=== PATIENT | female | born 1935 ===

== ENCOUNTER 2017-02-20 10:53 | Day surgery (SDC) | payer MEDICARE ==
[2017-01-29 07:57] VITALS: BMI 20.2
[2017-02-20] MEDS ORDERED: Iohexol 240 (50 ml) ONE (12:16)
[2017-02-20] MEDS ORDERED: cefTRIAXone IV 1 gm in Dextros 50 ML IVPB ONE (12:16)
[2017-02-20] MEDS ORDERED: Lactated Ringer's 1,000 ML IV ONE (13:20)
[2017-02-20] MEDS ORDERED: Propofol 10 mg/ml Inj (20 ML) ONE (13:34)
[2017-02-20] MEDS ORDERED: HYDROmorphone 0.5 mg/0.5 ml ISec IVP PRN (14:25)
--- NOTE | 2017-02-20 15:35 | PCM.SURG1 ---
Surgeon's Initial Post Op Note - Surgeon's Notes Surgeon: christian kang Supervisor [employer]ing [employer]: none Type of Anesthesia: General LMA Pre-Operative Diagnosis: hydronephrosis. uti Operative Findings: same. cystocele Post-Operative Diagnosis: same Operation Performed: cystoscopy, bilat rtg pyelogram. bilat stent insertion. cystogram. EUA Specimen/Specimens Removed: urine Estimated Blood Loss: EBL {In ML}: 0 Blood Products Given: N/A Drains Used: No Drains Date of Surgery/Procedure: 02/20/17 Time of Surgery/Procedure: 14:40
[2017-02-20] MEDS ORDERED: Lactated Ringer's 500 ML IV ONE (15:45)
[2017-02-20 16:31] VITALS: RESP 16
[2017-02-20 16:38] VITALS: BP 141/57; PULSE 93; TEMP 98.4; O2SAT 99
--- NOTE | 2017-02-21 09:13 | RAD ---
Abdomen single frontal view History: Hydronephrosis. Comparison: 11/04/2016 Findings: Moderate fecal retention in the colon. Few mildly distended loops of small bowel within the right sterling abdomen. Severe degenerative changes in the lumbar spine with paravertebral osteophytosis, endplate sclerosis, and mild loss of height of the vertebral bodies. Mild degenerative changes of the bilateral hips. Vascular calcifications noted. Calcified phleboliths noted within the pelvis. No evidence of gross radiopaque calculi projecting over the renal fossa. Impression: Moderate fecal retention in the colon. No gross radiopaque calculi project over the renal fossa. Radiopaque calcifications project over the lower pelvis, possibly calcified phleboliths. Severe degenerative changes in the spine.
--- NOTE | 2017-02-22 18:39 | OP ---
PREOPERATIVE DIAGNOSES: Urinary tract infection. Incontinence. POSTOPERATIVE DIAGNOSES: Urinary tract infection. Incontinence. Hydronephrosis. Cystitis. Pelvic prolapse. Cystocele. PROCEDURE: Cystoscopy. Bilateral retrograde pyelogram. Bilateral ureteral stent insertion. Cystogram. Exam under anesthesia. OPERATING SURGEON: Eun Aburto MD PROCEDURE: As follows. The patient was placed in lithotomy position. Genitalia prepped and sterilely. Anesthesia was applied by the anesthesiologist. A 22-Marshallese cystoscope sheath was introduced with obturator. Urethra and bladder were inspected 30 degrees and 70 degrees lenses. FINDINGS: The urethral caliber was noted to be normal. There was evidence of cystocele. The bladder was noted to be markedly inflamed. The urine within the bladder was cloudy. Urine was sent for bacteriologic examination. There was marked bladder trabeculation. There was no tumor identified. There was diffuse inflammatory mucosal changes. There was no stone within the bladder. There was bladder trabeculation as well. The ureteral orifices were initially not evident due to the inflammation in the bladder as well as the decreased visibility due to cloudy urine, as well as due to trabeculation. The right ureteral orifice was ultimately identified. The ureteral orifice was catheterized with a guidewire with the use of an open-ended catheter. The ureter initially took a caudad course from the ureteral orifice. The guidewire and open-end catheter were able to straighten this distal ureteral course. There was noted to be moderate hydroureteronephrosis down to the level of the bladder. The guidewire and catheter were able to be inserted up to level of the kidney. There was secondary kinking of the upper ureter which was also strained by the guidewire and catheter. Iodinated contrast dye was instilled into the kidney and demonstrated moderate hydroureteronephrosis. The guidewire was reinserted. A 6-Marshallese multilength stent was inserted over the guidewire. Proper stent position was confirmed with fluoroscopy endoscopy. Similar retrograde pyelogram was performed on the left side. The left ureteral orifice was able to be identified after further searching and by expecting symmetry with the right ureteral orifice. Similar findings of the left distal ureteral obstruction and caudad course of the left distal ureter from the orifice were noted. Moderate hydronephrosis with upper ureter were noted on the left as well. Similar catheterization with guidewire and catheter followed by retrograde pyelogram were performed on the left. The guidewire was reinserted. A left ureteral stent was inserted as well. Proper stent position was confirmed with fluoroscopy and endoscopy. The bladder was reinspected 70-degree lens to confirm the above findings. There was no bladder tumor identified. There was no bladder stone identified. Iodinated contrast dye was instilled via the cystoscope along with saline. Cystogram was performed. There was noted to be moderate pelvic descensus below the pubic bone. The bladder was then drained. Cystoscope sheath removed. Exam under anesthesia was performed. There was noted to be cystocele. There was noted to be rectocele. There was no abnormal pelvic mass fixation or induration. The patient tolerated the procedure without complication. Eun Aburto MD cc: MD Eun Pérez MD
--- NOTE | 2017-02-24 11:27 | RAD ---
PROCEDURE: HISTORY: Stent insertion-hydronephrosis. Fluoroscopy provided COMPARISON: None TECHNIQUE: Total fluoroscopic time utilized during the procedure: 59.9 seconds. Total dose 0.32005 mGy cm squared FINDINGS: Submitted images from the current procedure: 5 Please refer to the physician's notes performing the procedure. Bilateral hydronephrosis left greater than right. Bifid left collecting system. Bilateral hydroureters with hooking distally - of the system portions opacified no gross filling defects seen. IMPRESSION: Less than 1 hour fluoroscopic time utilized during performance of the procedure
== END 2017-02-20 16:41 | disposition home or self-care (01) ==
LOC: C.SDS 10:53
PROVIDERS: ATTEND Urology
DX: N39.0 Urinary tract infection, site not specified (principal); N13.30 Unspecified hydronephrosis; R32 Unspecified urinary incontinence; N30.90 Cystitis, unspecified without hematuria; N81.10 Cystocele, unspecified
CPT/HCPCS: 52332; 74000; 82948; 87086; 87181; C1758; C1769; C2617; J0696; J1170; J7120

== ENCOUNTER 2017-03-21 10:45 | Inpatient (IN) | payer MEDICARE ==
[2017-03-21 10:45] VITALS: BMI 20.2
--- NOTE | 2017-03-21 12:12 | C.PDOC ---
History Of Present Illness 81 y/o F c PMHx HTN, DM, arthritis (patient has been taking tramadol, was on gabapentin previously) p/w lower leg pain bilaterally x 3 days. Pain is like a pulsing, from knee to toes, plantar feet and up calf. Daughter states patient has never had pain like this before. Reports a fall weeks ago but patient had no leg pains after the fall. Denies swelling, erythema, numbness, or weakness. Patient also notes suprapubic pain, which is similar to multiple previous UTIs for which patient has always taken nitrofurantoin. Time Seen by Provider: 03/21/17 11:53 Chief Complaint (Nursing): Lower Extremity Problem/Injury Past Medical History Vital Signs: Last Vital Signs Temp 99.4 F 03/21/17 16:25 Pulse 112 H 03/21/17 16:25 Resp 18 03/21/17 16:25 BP 106/47 L 03/21/17 16:25 Pulse Ox 99 03/21/17 17:50 - Medical History PMH: HTN, Peripheral Edema Surgical History: Endoscopy Family History: States: No Known Family Hx - Social History Hx Alcohol Use: No Hx Substance Use: No - Immunization History Hx Tetanus Toxoid Vaccination: No Hx Influenza Vaccination: No Hx Pneumococcal Vaccination: No Review Of Systems Except As Marked, All Systems Reviewed And Found Negative. Constitutional: Negative for: Fever Respiratory: Negative for: Shortness of Breath Physical Exam - Physical Exam Additional Physical Exam Comments: Constitutional: No acute distress. Head: Normocephalic. Atraumatic. Eyes: PERRL. ENT: Moist mucous membranes. Neck: Supple. Cardiovascular: Tachycardic. Chest: No tenderness. Respiratory: Clear to auscultation bilaterally. GI: Soft. Nontender. Nondistended. Back: No CVA tenderness. Musculoskeletal: Lower legs without swelling or erythema. DP pulses 2+. FROM toes, ankles, knees. Skin: No rash. Neurologic: Alert, no focal deficit. ED Course And Treatment - Laboratory Results Result Diagrams: 03/21/17 12:25 03/21/17 12:25 O2 Sat by Pulse Oximetry: 99 (RA) Pulse Ox Interpretation: Normal Medical Decision Making Medical Decision Making: Will check UA and treat UTI with previously effective Macrobid. Leg pain differential includes DVT, rhabdo, muscle cramps, fracture, neuropathy. Joints with FROM, afebrile and no erythema, not suspicious for cellulitis or septic joint. UA obviously with UTI. Discussed case with Liliam Aburto, who previously had placed patient on different antibiotic due to macrobid resistance. He recommends another trial of macrobid at this time and will see patient this week , requests KUB. Doppler negative for DVT b/l. On reassessment, patient's leg pain is better but is having shaking chills, which daughter at bedside attributes to cold US gel. Rechecked temperature, 101.9 with UTI, performed sepsis work up. Lactate 3.4, CODE SEPSIS activated. IVF administered, Cefepime. EKG NSR 124 bpm , no ST/T wave changes. CXR negative for acute disease. Dr. Valdez accepts patient to hospitalist service. Informed Dr. Aburto of change in plan, he will consult. Disposition - Disposition Disposition: HOSPITALIZED Disposition Time: 14:24 Condition: GUARDED - POA Core Measure Indicators: Code Sepsis - Clinical Impression Clinical Impression: UTI (urinary tract infection), Sepsis - Scribe Statement The provider has reviewed the documentation as recorded by the Scribe (Judith Zayas) Provider Attestation: All medical record entries made by the Scribe were at my direction and personally dictated by me. I have reviewed the chart and agree that the record accurately reflects my personal performance of the history, physical exam, medical decision making, and the department course for this patient. I have also personally directed, reviewed, and agree with the discharge instructions and disposition.
[2017-03-21] MEDS ORDERED: Morphine 4 MG/ML VIAL ONE (12:18)
[2017-03-21 12:29] LABS: BASO % 0.5 % (0.0-2.0); EOS % 0.2 % (0.0-4.0); HEMATOCRIT 31.5 % (34.0-47.0); LYMPH # 1.4 K/uL (1.0-4.3); LYMPH % 25.7 % (20.0-40.0); MEAN CELL VOLUME 81.2 fL (81.0-99.0); MEAN CORPUSCULAR HEMOGLOBIN 26.9 pg (27.0-31.0); MEAN CORPUSCULAR HGB CONC 33.1 g/dL (33.0-37.0); MEAN PLATELET VOLUME 7.6 fL (7.2-11.7); MONO # 0.6 K/uL (0.0-0.8); MONO % 11.4 % (0.0-10.0); RED CELL DISTRIBUTION WIDTH 16.1 % (11.5-14.5); WHITE BLOOD COUNT 5.6 K/uL (4.8-10.8)
[2017-03-21 12:42] LABS: ALKALINE PHOSPHATASE 94 U/L (38-126); ALT/SGPT 43 U/L (9-52); AST/SGOT 25 U/L (14-36); BILIRUBIN,TOTAL 0.4 mg/dL (0.2-1.3); BLOOD UREA NITROGEN 25 mg/dL (7-17); CALCIUM 8.8 mg/dl (8.6-10.4); CARBON DIOXIDE 25 mmol/L (22-30); CHLORIDE 103 mmol/L (98-107); GFR AFRICAN-AMERICAN > 60; GLUCOSE,RANDOM 138 mg/dL (65-105); POTASSIUM 4.6 mmol/L (3.6-5.2); SODIUM 135 mmol/L (132-148); TOTAL PROTEIN 8.6 g/dL (6.3-8.3)
[2017-03-21 12:46] LABS: ALB/GLOB RATIO 0.7 (1.0-2.1)
[2017-03-21 13:07] LABS: RBC URINE 261 /hpf (0-3); URINE BACTERIA MOD (<OCC); URINE BILIRUBIN NEGATIVE (NEGATIVE); URINE BLOOD 3+ (NEGATIVE); URINE COLOR Amber (YELLOW); URINE GLUCOSE (UA) NORMAL (Normal); URINE KETONE NEGATIVE (NEGATIVE); URINE LEUKOCYTE ESTERASE 3+ Leu/uL (Negative); URINE PROTEIN 2+ mg/dL (NEGATIVE); URINE UROBILINOGEN NORMAL mg/dL (0.2-1.0); WBC CLUMPS MANY /hpf; WBC URINE 4993 /hpf (0-5)
--- NOTE | 2017-03-21 13:10 | RAD ---
Bilateral tibia and fibula four views History: Lower leg pain. Comparison: None available. Findings: Left tibia and fibula: Limited evaluation given suboptimal patient positioning on the frontal view, particularly of the fibula. Severe medial compartment joint space narrowing of the femorotibial joint space with subchondral sclerosis and osteophytosis. Vascular calcifications. Narrowing of the tibiotalar joint space. Moderate patellofemoral compartment joint space narrowing with subchondral sclerosis. Right tibia and fibula: Severe narrowing of the medial compartment of the femorotibial joint space with subchondral sclerosis and osteophytosis. Moderate patellofemoral compartment joint space narrowing. Vascular calcifications. Impression: Severe degenerative changes. If pain persists, consider MRI. Suboptimal patient positioning of the left tibia and fibula.
[2017-03-21] MEDS ORDERED: Sodium Chloride 0.9% 1,000 ML IV STA ×2 (14:41→15:40)
[2017-03-21] MEDS ORDERED: Cefepime 2 GM in Sodium Chloride 0.9% 50 ML IVPB ONE (14:42)
--- NOTE | 2017-03-21 14:42 | RAD ---
Abdomen single frontal view History: Ureteral stents. Comparison: 02/20/2017 Findings: Bilateral nephroureteral stents in place. Punctate radiopaque density/calculus adjacent to the distal right ureter. Alternatively, this may represent a calcified phlebolith. Mild gaseous distention of some small bowel loops in the upper abdomen. Prominent degenerative changes in the spine. Impression: Bilateral nephroureteral stents in place. Punctate radiopaque density/calculus adjacent to the distal right ureter. Alternatively, this may represent a calcified phlebolith.
[2017-03-21 15:05] LABS: VENOUS BLOOD GAS BASE EXCESS -11.4 mmol/L (0.0-2.0); VENOUS BLOOD GAS PCO2 31 mmHg (40-60); VENOUS BLOOD PH 7.27 (7.32-7.43)
[2017-03-21] MEDS ORDERED: Cefepime 2 GM in Dextrose 5% In Water 100 ML IVPB ONE (15:15)
[2017-03-21] MEDS ORDERED: Cefepime 2 GM in Sodium Chloride 0.9% 100 ML IVPB ONE (15:15)
--- NOTE | 2017-03-21 15:35 | RAD ---
Chest x-ray single frontal view History: Fever. Comparison: 11/04/2016 Findings: Again identified is a small nodule seen projecting over the left upper lung zone. This is not significantly changed since the prior study. Correlation with chest CT may be helpful clinically indicated. No focal infiltrate or effusion. Tortuous ectatic aorta. Degenerative changes in the spine and shoulders. Impression: No focal infiltrate or effusion. Stable nodule projecting over the left upper lung zone. Clinical correlation.
--- NOTE | 2017-03-21 15:55 | CP.PCM.HP ---
History of Present Illness - History of Present Illness History of Present Illness: CC: leg pain/bilateral H&P Patient has been having leg pain for past five days. Patient does not walk from bed to bathroom this week because of the pain. Patient's daughter states that patient usually walks from bathroom to bed, but not more than that. Patient's daughter states patient has been having a urine infection since September and has been constantly on antibiotics. Patient's daughter states for a week now, the patient has had pain on bottom of left foot that travels up to her calves. Upon demonstration of the pain with light touch, the daughter which produced a painful response from the patient. Patient's daughter states that there is increased frequency and burning with urination. Patient noted for a week, along with the leg pain, patient does not get up because of the pain and urinates more in the bed than before. Patient used to wake up multiple times in the night because of the urge to urinate. Patient sees Dr. Aburto who suggested seeing Dr. Huong Valdez (OBGYN) for pessary insertion. Patient has a PMH of DM, HTN, and cystocele. Patient states she wipes from "back to front." Proper method to wipe after urination is from front to back. Patient is now aware of another way to help decrease risk of UTI. code sepsis was called in the ED prior to admission interview: Patient had tachycardia, and lactate 3.4 PMH: DM, HTN, cystocele, osteoarthritis Surgeries: bilateral ureteral stent placement 02/20/17 Allergies: none PMD: Dr. Paredes Urologist: Dr Renita Aburto OBGYN: Dr. Kiara Valdez Code Status: full code Present on Admission - Present on Admission Any Indicators Present on Admission: No History of DVT/PE: No History of Uncontrolled Diabetes: No Urinary Catheter: No Past Patient History - Past Medical History & Family History Past Medical History?: Yes - Past Social History Smoking Status: Never Smoked - CARDIAC Hx Hypertension: Yes Hx Peripheral Edema: Yes - PULMONARY Hx Respiratory Disorders: Yes (ABN CHEST X RAY) - NEUROLOGICAL Hx Neurological Disorder: No - HEENT Hx HEENT Problems: Yes Hx Cataracts: Yes (BILAT IOL) - RENAL Other/Comment: HYDRONEPHROSIS - ENDOCRINE/METABOLIC Hx Endocrine Disorders: Yes Hx Diabetes Mellitus Type 2: Yes - HEMATOLOGICAL/ONCOLOGICAL Hx Blood Disorders: No - INTEGUMENTARY Hx Dermatological Problems: No - MUSCULOSKELETAL/RHEUMATOLOGICAL Hx Musculoskeletal Disorders: Yes Hx Osteoarthritis: Yes - GASTROINTESTINAL Hx Gastrointestinal Disorders: Yes (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) - GENITOURINARY/GYNECOLOGICAL Hx Genitourinary Disorders: Yes Hx Urinary Tract Infection: Yes - PSYCHIATRIC Hx Substance Use: No - SURGICAL HISTORY Hx Surgeries: Yes Hx Breast Biopsy: Yes (LEFT) Hx Cataract Extraction: Yes (BILAT IOL) Other/Comment: Kidney stent - ANESTHESIA Hx Anesthesia: Yes Hx Anesthesia Reactions: No Hx Malignant Hyperthermia: No Meds Allergies/Adverse Reactions: Allergies Allergy/AdvReac Type Severity Reaction Status Date / Time No Known Allergies Allergy Verified 03/21/17 10:50 Physical Exam - Head Exam Head Exam: ATRAUMATIC, NORMAL INSPECTION, NORMOCEPHALIC - Eye Exam Eye Exam: EOMI, Normal appearance. absent: Periorbital tenderness Additional comments: arcus senilis bilaterally - ENT Exam ENT Exam: Mucous Membranes Dry, Normal External Ear Exam - Neck Exam Neck exam: Positive for: Full Rom. Negative for: Tenderness - Respiratory Exam Respiratory Exam: NORMAL BREATHING PATTERN. absent: Accessory Muscle Use, Chest Wall Tenderness, Decreased Breath Sounds, Wheezes, Respiratory Distress - Cardiovascular Exam Cardiovascular Exam: Tachycardia, REGULAR RHYTHM, +S1, +S2 - GI/Abdominal Exam GI & Abdominal Exam: Soft. absent: Distended, Firm, Tenderness - Exam External exam: Erythema Additional comments: pain on palpation of mons pubis, labia majora as well. cystocele apparent upon view of the genital region. did not do full pelvic exam - Extremities Exam Extremities exam: Positive for: full ROM. Negative for: pedal edema Additional comments: patient expressed feeling pain on palpation of left posterior calf capillary refill less than 2 seconds. - Neurological Exam Neurological exam: Alert - Psychiatric Exam Psychiatric exam: Normal Affect, Normal Mood - Skin Skin Exam: Dry, Intact, Normal Color, Warm Results - Vital Signs Recent Vital Signs: Last Vital Signs Temp 101.9 F H 03/21/17 14:38 Pulse 137 H 03/21/17 15:17 Resp 24 03/21/17 15:17 BP 138/76 03/21/17 15:17 Pulse Ox 92 L 03/21/17 15:17 - Labs Result Diagrams: 03/21/17 12:25 03/21/17 12:25 Labs: Laboratory Results - last 24 hr 03/21/17 03/21/17 03/21/17 12:25 12:25 12:39 WBC 5.6 D RBC 3.88 Hgb 10.4 L Hct 31.5 L MCV 81.2 D MCH 26.9 L MCHC 33.1 RDW 16.1 H Plt Count 422 H MPV 7.6 Neut % (Auto) 62.2 Lymph % (Auto) 25.7 [place] % (Auto) 11.4 H Eos % (Auto) 0.2 Baso % (Auto) 0.5 Neut # 3.5 Lymph # 1.4 [place] # 0.6 Eos # 0.0 Baso # 0.0 pO2 VBG pH VBG pCO2 VBG HCO3 VBG Total CO2 VBG O2 Sat (Calc) VBG Base Excess VBG Potassium Glucose Lactate Sodium 135 Potassium 4.6 Chloride 103 Carbon Dioxide 25 Anion Gap 12 BUN 25 H Creatinine 1.0 Est GFR ( Amer) > 60 Est GFR (Non-Af Amer) 53 Random Glucose 138 H Calcium 8.8 Total Bilirubin 0.4 AST 25 ALT 43 Alkaline Phosphatase 94 Total Creatine Kinase 22 L Total Protein 8.6 H Albumin 3.6 Globulin 5.0 H Albumin/Globulin Ratio 0.7 L Venous Blood Potassium Urine Color Irena Urine Clarity Turbid Urine pH 6.0 Ur Specific [place] 1.011 Urine Protein 2+ H Urine Glucose (UA) Normal Urine Ketones Negative Urine Blood 3+ H Urine Nitrate Positive H Urine Bilirubin Negative Urine Urobilinogen Normal Ur Leukocyte Esterase 3+ H Urine WBC (Auto) 4993 H Urine RBC (Auto) 261 H Urine WBC Clumps (Auto) Many H Urine Bacteria Mod H 03/21/17 14:48 WBC RBC Hgb Hct MCV MCH MCHC RDW Plt Count MPV Neut % (Auto) Lymph % (Auto) [place] % (Auto) Eos % (Auto) Baso % (Auto) Neut # Lymph # [place] # Eos # Baso # pO2 21 L VBG pH 7.27 L VBG pCO2 31 L VBG HCO3 14.1 VBG Total CO2 15.2 L VBG O2 Sat (Calc) 36.4 L VBG Base Excess -11.4 L VBG Potassium 4.4 Glucose 132 H Lactate 3.4 H Sodium 143.0 Potassium Chloride 113.0 H Carbon Dioxide Anion Gap BUN Creatinine Est GFR ( Amer) Est GFR (Non-Af Amer) Random Glucose Calcium Total Bilirubin AST ALT Alkaline Phosphatase Total Creatine Kinase Total Protein Albumin Globulin Albumin/Globulin Ratio Venous Blood Potassium 4.4 Urine Color Urine Clarity Urine pH Ur Specific [place] Urine Protein Urine Glucose (UA) Urine Ketones Urine Blood Urine Nitrate Urine Bilirubin Urine Urobilinogen Ur Leukocyte Esterase Urine WBC (Auto) Urine RBC (Auto) Urine WBC Clumps (Auto) Urine Bacteria Assessment & Plan - Assessment and Plan (Free Text) Assessment: 1 code sepsis - called in ER, likely secondary to UTI, secondary to bilateral ureteral stents v cystocele f/u blood cx x 2 f/u urine cx x 2 ID Consult: Dr. Valdez Urology Consult: Dr. Maty Aburto 03/21 14:48 Lactate 3.4 03/21 repeat at 17:48pm STAT ABG ordered to follow up EKG stat for tachycardia likely secondary to fever, treating with tylenol Vitals Q4H Maxipime 1gm IVQ12H to start 03/22/17 in AM NS 75cc/hr Tylenol 650mg POQ6H for 24 hours starting 6am 03/22/17 f/u Vitals, AM CBC, CMP 2 hx of b/l stent placement 02/20/1703/21 abdominal flat plate 1 view: bilateral nephroureteral stents. punctate radiopaque density/calculus adjacent to distal right ureter Urology Consult: Dr. Maty Aburto (see Assessment and plan #1) 2 UTI 03/21 antibiotics in ER Maxipime 2gm IV once 03/21 antibiotics on the floor: Maxipime 1gm IVQ12H start 03/22/17 (see Assessment and plan #1) (see Assessment and plan #1) 3 Tachycardia (see Assessment and plan #1) 4 Lower extremity leg pain b/l Tibial/fibula XRAY: severe degenerative changes duplex lower extremity arteries bilaterally were negative for DVT f/u 03/22 bilateral arterial dopplers of legs Gabapentin 100mg QHS 5 Anemia likely secondary to chronic disease hemoglobin/hematocrit stable compared to 01/20 f/u AM CBC with differential 6 Hx T2DM Janumet, hold due to UTI, not on formulary Low dose ISS accuchek q6h Hypoglycemic Protocol Vegetarian, Low Sodium, heart healthy, Carbohydrate consistent diet f/u Hgb A1c 7 Hx HTN Enlapril 5mg POQD starting 03/22/17 8 Hx of cystocele 12/16 OBGYN consult: Dr. Craig for pessary placement, patient had appointment for evaluation this coming week 9 Hx constipation colace 100mg POTID hold when patient has BM 10 Hx Osteoarthritis monitor patient PT OT eval and treat, multiple falls and for SHARA 11 Hx recent fall, hit head f/u 03/21 CT scan w/o contrast of head d/t recent fall if negative, start patient on Heparin 5000 SC Q8H Hx bilateral nephroureteral stents 02/20/17 radioopaque density adjacent to distal right ureter (possible calcified phlebolith) abdominal xray: no focal infiltrate or effusion. stable nodule projecting over left upper lung zone, patient has a history of nodule in lung Prophylaxis DVT risk score 2 contraindicated due to recent fall, f/u CT head w/o contrast. if negative, start patient on Heparin 5,000 Q8H NO SCDs due to possible PAD Protonix 40mg IVP QD Vegetarian, Low Sodium, heart healthy, Carbohydrate consistent diet Dr. Felice Mix DO PGY1 - Date & Time Date: 03/21/17 Time: 17:44
--- NOTE | 2017-03-21 17:03 | CT ---
PROCEDURE: CT HEAD WITHOUT CONTRAST. HISTORY: recent fall COMPARISON: None available. TECHNIQUE: Axial computed tomography images were obtained through the head/brain without intravenous contrast. Radiation dose: Total exam DLP = 723 mGy-cm. This CT exam was performed using one or more of the following dose reduction techniques: Automated exposure control, adjustment of the mA and/or kV according to patient size, and/or use of iterative reconstruction technique. FINDINGS: HEMORRHAGE: No intracranial hemorrhage. BRAIN: No mass effect or edema. Scattered focal lucencies in the subcortical and periventricular white matter suggestive for chronic microvascular ischemic change. Prominence of the bifrontal extra-axial CSF spaces suggestive for atrophic changes in the bilateral frontal lobes. Additional cerebellar atrophy. VENTRICLES: Unremarkable. No hydrocephalus. CALVARIUM: Well corticated low-attenuation foci seen within the posterior left parietal cranium just superior to the mastoid air cells best seen on series 2 image 11 measuring 7 millimeters, nonspecific. PARANASAL SINUSES: Unremarkable as visualized. No significant inflammatory changes. MASTOID AIR CELLS: Unremarkable as visualized. No inflammatory changes. OTHER FINDINGS: Intracranial vascular calcifications. IMPRESSION: No acute intracranial abnormality. Additional findings as above. If focal neurologic deficit persists, consider MRI.
[2017-03-21 17:27] LABS: ABG ALLEN TEST PO; ARTERIAL BLOOD HGB O2 SAT 96.9 % (95.0-98.0); CARBOXYHEMOGLOBIN 2.2 % (0.5-1.5); DRAW SITE RR; HHB -0.3 % (0.0-5.0); METHEMOGLOBIN 1.1 % (0.0-3.0)
[2017-03-21] MEDS ORDERED: Glucagon Recombinant 1 mg Inj IM PRN (17:53)
[2017-03-21] MEDS ORDERED: Dextrose 50% SYRINGE Inj (50 ml) IVP PRN (17:53)
[2017-03-21] MEDS: Sodium Chloride 0.9% 1,000 ML IV SCH (18:14)
[2017-03-21] MEDS: (Novolin R) Insulin Human Regular 100 units/ml vial SC SCH (21:34)
[2017-03-21] MEDS ORDERED: (Novolin 70/30) NPH/Regular 70/30 Units/ml 10 ml vial SC SCH (22:00)
[2017-03-22] MEDS: Sodium Chloride 0.9% 1,000 ML IV SCH ×2 (05:38→19:55)
--- NOTE | 2017-03-22 07:27 | CP.PCM.CON ---
History of Present Illness - History of Present Illness History of Present Illness: 81 y/o with recurrent UTI with recent b/l stent placement by urology admitted with sepsis secondary to UTI. pt referred by urology for pelvic prolapse and was scheuleed for pessary insertion 03/24/17. Pt denies any fevers, however reports right sided flank pain that has improved since admission and reports urinary frequency and functional incontinece due to immobility. Pt deneis any pressure, discharge, bleeding, nausea, vomiting. OB: P2 [employer]: denies hx of abnormal pap, fibroids, ovarian cys, STI, PMB PMH: DM, HTN, cystocele, osteoarthritis PSH: bilateral ureteral stent placement 02/20/17 FHX: non contributory MEDS: see med rec SHX: negative etoh/tobacco/drugs Allergies: none Review of Systems - Constitutional Constitutional: As Per HPI - Cardiovascular Additional comments: denies cp, sob - Respiratory Respiratory: As Per HPI - Gastrointestinal Gastrointestinal: As Per HPI - Genitourinary Genitourinary: As Per HPI, Flank Pain, Urinary Frequency, Urinary Hesitance, Voiding Freq/Small Amts, Freq UTI - Menstruation Menstruation: Post Menopausal Past Patient History - Past Medical History & Family History Past Medical History?: Yes - Past Social History Smoking Status: Never Smoked Chewing Tobacco Use: No Cigar Use: No Alcohol: None Drugs: Denies Home Situation {Lives}: With Family - CARDIAC Hx Hypertension: Yes Hx Peripheral Edema: Yes - PULMONARY Hx Respiratory Disorders: Yes (ABN CHEST X RAY) - NEUROLOGICAL Hx Neurological Disorder: No - HEENT Hx HEENT Problems: Yes Hx Cataracts: Yes (BILAT IOL) - RENAL Other/Comment: HYDRONEPHROSIS - ENDOCRINE/METABOLIC Hx Endocrine Disorders: Yes Hx Diabetes Mellitus Type 2: Yes - HEMATOLOGICAL/ONCOLOGICAL Hx Blood Disorders: No - INTEGUMENTARY Hx Dermatological Problems: No - MUSCULOSKELETAL/RHEUMATOLOGICAL Hx Falls: No - GASTROINTESTINAL Hx Gastrointestinal Disorders: Yes (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) - GENITOURINARY/GYNECOLOGICAL Hx Genitourinary Disorders: Yes Hx Urinary Tract Infection: Yes - PSYCHIATRIC Hx Substance Use: No - SURGICAL HISTORY Hx Surgeries: Yes Hx Breast Biopsy: Yes (LEFT) Hx Cataract Extraction: Yes (BILAT IOL) Other/Comment: Kidney stent - ANESTHESIA Hx Anesthesia: Yes Hx Anesthesia Reactions: No Hx Malignant Hyperthermia: No Meds Allergies/Adverse Reactions: Allergies Allergy/AdvReac Type Severity Reaction Status Date / Time No Known Allergies Allergy Verified 03/21/17 10:50 - Medications Medications: Current Medications Acetaminophen (Tylenol 325mg Tab) 650 mg PO Q6 [facility] Stop: 03/22/17 18:01 Last Admin: 03/22/17 05:37 Dose: 650 mg Dextrose (Dextrose 50% Inj) 0 ml IVP .STAT PRN; Protocol PRN Reason: Hypoglycemia Protocol Dextrose (Glutose 15) 0 gm PO .ONCE PRN; Protocol PRN Reason: Hypoglycemia Protocol Docusate Sodium (Colace) 100 mg PO TID [facility] Last Admin: 03/21/17 18:13 Dose: 100 mg Enalapril Maleate (Vasotec) 5 mg PO DAILY [facility] Gabapentin (Neurontin) 100 mg PO HS [facility] Last Admin: 03/21/17 21:29 Dose: 100 mg Glucagon (Glucagen Diagnostic Kit) 0 mg IM .STAT PRN; Protocol PRN Reason: Hypoglycemia Protocol Heparin Sodium (Porcine) (Heparin) 5,000 units SC Q8 [facility] Last Admin: 03/22/17 05:37 Dose: 5,000 units Sodium Chloride (Sodium Chloride 0.9%) 1,000 mls @ 75 mls/hr IV .[id number] [facility] Last Admin: 03/22/17 05:38 Dose: 75 mls/hr Cefepime HCl 1 gm/ Dextrose 50 mls @ 100 mls/hr IVPB Q12H [facility] Last Admin: 03/22/17 05:38 Dose: 100 mls/hr Dextrose (Dextrose 5% In Water 1000 Ml) 1,000 mls @ 0 mls/hr IV .Q0M PRN; Protocol; Per Protocol PRN Reason: Hypoglycemia Protocol Insulin Human Regular (Novolin R) 0 unit SC ACHS [facility] PRN Reason: Protocol Last Admin: 03/21/17 21:34 Dose: Not Given Pantoprazole Sodium (Protonix Inj) 40 mg IVP DAILY [facility] Physical Exam - Constitutional Appears: No Acute Distress - Head Exam Head Exam: ATRAUMATIC, NORMAL INSPECTION - Eye Exam Eye Exam: PERRL - ENT Exam ENT Exam: Mucous Membranes Moist - Neck Exam Neck exam: Positive for: Normal Inspection - Respiratory Exam Respiratory Exam: NORMAL BREATHING PATTERN - Cardiovascular Exam Cardiovascular Exam: +S1, +S2 - GI/Abdominal Exam GI & Abdominal Exam: Soft Additional comments: non tendern, no guarding, no rebound tenderness, no rigidity VE: no gross prolpase - Extremities Exam Additional comments: negative calf tenderness - Back Exam Back exam: CVA tenderness (R) - Skin Skin Exam: Dry Results - Vital Signs Recent Vital Signs: Last Vital Signs Temp 97.7 F 03/22/17 05:37 Pulse 101 H 03/22/17 04:48 Resp 20 03/22/17 04:48 BP 123/65 03/22/17 04:48 Pulse Ox 99 03/22/17 04:48 - Labs Result Diagrams: 03/22/17 07:57 03/22/17 07:57 Labs: Laboratory Results - last 24 hr 03/21/17 03/21/17 03/21/17 12:25 12:25 12:39 WBC 5.6 D RBC 3.88 Hgb 10.4 L Hct 31.5 L MCV 81.2 D MCH 26.9 L MCHC 33.1 RDW 16.1 H Plt Count 422 H MPV 7.6 Neut % (Auto) 62.2 Lymph % (Auto) 25.7 [place] % (Auto) 11.4 H Eos % (Auto) 0.2 Baso % (Auto) 0.5 Neut # 3.5 Lymph # 1.4 [place] # 0.6 Eos # 0.0 Baso # 0.0 Puncture Site pCO2 pO2 HCO3 ABG pH ABG Total CO2 ABG O2 Saturation ABG Base Excess ABG Hemoglobin ABG Carboxyhemoglobin POC ABG HHb (Measured) ABG Methemoglobin [place] Test VBG pH VBG pCO2 VBG HCO3 VBG Total CO2 VBG O2 Sat (Calc) VBG Base Excess VBG Potassium A-a O2 Difference Respiratory Index Hgb O2 Saturation Glucose Lactate FiO2 Sodium 135 Potassium 4.6 Chloride 103 Carbon Dioxide 25 Anion Gap 12 BUN 25 H Creatinine 1.0 Est GFR ( Amer) > 60 Est GFR (Non-Af Amer) 53 POC Glucose (mg/dL) Random Glucose 138 H Lactic Acid Calcium 8.8 Total Bilirubin 0.4 AST 25 ALT 43 Alkaline Phosphatase 94 Total Creatine Kinase 22 L Total Protein 8.6 H Albumin 3.6 Globulin 5.0 H Albumin/Globulin Ratio 0.7 L Venous Blood Potassium Urine Color Irena Urine Clarity Turbid Urine pH 6.0 Ur Specific [place] 1.011 Urine Protein 2+ H Urine Glucose (UA) Normal Urine Ketones Negative Urine Blood 3+ H Urine Nitrate Positive H Urine Bilirubin Negative Urine Urobilinogen Normal Ur Leukocyte Esterase 3+ H Urine WBC (Auto) 4993 H Urine RBC (Auto) 261 H Urine WBC Clumps (Auto) Many H Urine Bacteria Mod H 03/21/17 03/21/17 03/21/17 14:48 17:18 17:24 WBC RBC Hgb Hct MCV MCH MCHC RDW Plt Count MPV Neut % (Auto) Lymph % (Auto) [place] % (Auto) Eos % (Auto) Baso % (Auto) Neut # Lymph # [place] # Eos # Baso # Puncture Site Rr pCO2 24 L pO2 21 L 112 H HCO3 19.6 L ABG pH 7.44 ABG Total CO2 17.0 L ABG O2 Saturation 100.3 H ABG Base Excess -6.8 L ABG Hemoglobin 8.2 L ABG Carboxyhemoglobin 2.2 H POC ABG HHb (Measured) -0.3 L ABG Methemoglobin 1.1 [place] Test Po VBG pH 7.27 L VBG pCO2 31 L VBG HCO3 14.1 VBG Total CO2 15.2 L VBG O2 Sat (Calc) 36.4 L VBG Base Excess -11.4 L VBG Potassium 4.4 A-a O2 Difference 8.0 Respiratory Index 0.1 Hgb O2 Saturation 96.9 Glucose 132 H Lactate 3.4 H FiO2 21.0 Sodium 143.0 Potassium Chloride 113.0 H Carbon Dioxide Anion Gap BUN Creatinine Est GFR ( Amer) Est GFR (Non-Af Amer) POC Glucose (mg/dL) 140 H Random Glucose Lactic Acid Calcium Total Bilirubin AST ALT Alkaline Phosphatase Total Creatine Kinase Total Protein Albumin Globulin Albumin/Globulin Ratio Venous Blood Potassium 4.4 Urine Color Urine Clarity Urine pH Ur Specific [place] Urine Protein Urine Glucose (UA) Urine Ketones Urine Blood Urine Nitrate Urine Bilirubin Urine Urobilinogen Ur Leukocyte Esterase Urine WBC (Auto) Urine RBC (Auto) Urine WBC Clumps (Auto) Urine Bacteria 03/21/17 03/21/17 03/21/17 18:11 21:06 21:08 WBC RBC Hgb Hct MCV MCH MCHC RDW Plt Count MPV Neut % (Auto) Lymph % (Auto) [place] % (Auto) Eos % (Auto) Baso % (Auto) Neut # Lymph # [place] # Eos # Baso # Puncture Site pCO2 pO2 HCO3 ABG pH ABG Total CO2 ABG O2 Saturation ABG Base Excess ABG Hemoglobin ABG Carboxyhemoglobin POC ABG HHb (Measured) ABG Methemoglobin [place] Test VBG pH VBG pCO2 VBG HCO3 VBG Total CO2 VBG O2 Sat (Calc) VBG Base Excess VBG Potassium A-a O2 Difference Respiratory Index Hgb O2 Saturation Glucose Lactate FiO2 Sodium Potassium Chloride Carbon Dioxide Anion Gap BUN Creatinine Est GFR ( Amer) Est GFR (Non-Af Amer) POC Glucose (mg/dL) 120 H Random Glucose Lactic Acid 1.0 1.4 Calcium Total Bilirubin AST ALT Alkaline Phosphatase Total Creatine Kinase Total Protein Albumin Globulin Albumin/Globulin Ratio Venous Blood Potassium Urine Color Urine Clarity Urine pH Ur Specific [place] Urine Protein Urine Glucose (UA) Urine Ketones Urine Blood Urine Nitrate Urine Bilirubin Urine Urobilinogen Ur Leukocyte Esterase Urine WBC (Auto) Urine RBC (Auto) Urine WBC Clumps (Auto) Urine Bacteria 03/22/17 06:12 WBC RBC Hgb Hct MCV MCH MCHC RDW Plt Count MPV Neut % (Auto) Lymph % (Auto) [place] % (Auto) Eos % (Auto) Baso % (Auto) Neut # Lymph # [place] # Eos # Baso # Puncture Site pCO2 pO2 HCO3 ABG pH ABG Total CO2 ABG O2 Saturation ABG Base Excess ABG Hemoglobin ABG Carboxyhemoglobin POC ABG HHb (Measured) ABG Methemoglobin [place] Test VBG pH VBG pCO2 VBG HCO3 VBG Total CO2 VBG O2 Sat (Calc) VBG Base Excess VBG Potassium A-a O2 Difference Respiratory Index Hgb O2 Saturation Glucose Lactate FiO2 Sodium Potassium Chloride Carbon Dioxide Anion Gap BUN Creatinine Est GFR ( Amer) Est GFR (Non-Af Amer) POC Glucose (mg/dL) 121 H Random Glucose Lactic Acid Calcium Total Bilirubin AST ALT Alkaline Phosphatase Total Creatine Kinase Total Protein Albumin Globulin Albumin/Globulin Ratio Venous Blood Potassium Urine Color Urine Clarity Urine pH Ur Specific [place] Urine Protein Urine Glucose (UA) Urine Ketones Urine Blood Urine Nitrate Urine Bilirubin Urine Urobilinogen Ur Leukocyte Esterase Urine WBC (Auto) Urine RBC (Auto) Urine WBC Clumps (Auto) Urine Bacteria Assessment & Plan (1) Sepsis Assessment and Plan: 81 y/o Postmenopausal admitted to medicine with sepsis secondary to recurretn UTI with pelvic prolapse -cont management as per primary team -f/u Oupatient for pessary placement once cleared of infection -reconsult prn Status: Acute
[2017-03-22] MEDS: (Novolin R) Insulin Human Regular 100 units/ml vial SC SCH ×4 (07:51→21:52)
[2017-03-22 08:05] LABS: BASO % 0.4 % (0.0-2.0); EOS # 0.1 K/uL (0.0-0.7); EOS % 1.9 % (0.0-4.0); HEMATOCRIT 28.9 % (34.0-47.0); LYMPH # 1.1 K/uL (1.0-4.3); LYMPH % 17.6 % (20.0-40.0); MEAN CELL VOLUME 81.8 fL (81.0-99.0); MEAN CORPUSCULAR HEMOGLOBIN 26.5 pg (27.0-31.0); MEAN CORPUSCULAR HGB CONC 32.4 g/dL (33.0-37.0); MEAN PLATELET VOLUME 7.7 fL (7.2-11.7); MONO # 0.9 K/uL (0.0-0.8); MONO % 14.1 % (0.0-10.0); RED CELL DISTRIBUTION WIDTH 15.7 % (11.5-14.5); WHITE BLOOD COUNT 6.3 K/uL (4.8-10.8)
[2017-03-22 08:45] LABS: ALKALINE PHOSPHATASE 75 U/L (38-126); ALT/SGPT 35 U/L (9-52); AST/SGOT 23 U/L (14-36); BILIRUBIN,TOTAL 0.3 mg/dL (0.2-1.3); BLOOD UREA NITROGEN 17 mg/dL (7-17); CALCIUM 7.9 mg/dl (8.6-10.4); CARBON DIOXIDE 20 mmol/L (22-30); CHLORIDE 111 mmol/L (98-107); CHOLESTEROL 92 mg/dL (0-199); GFR AFRICAN-AMERICAN > 60; GLUCOSE,RANDOM 118 mg/dL (65-105); MAGNESIUM 1.5 mg/dL (1.6-2.3); POTASSIUM 4.1 mmol/L (3.6-5.2); SODIUM 137 mmol/L (132-148)
[2017-03-22 08:57] LABS: IRON < 10 ug/dL (37-170)
[2017-03-22 09:04] LABS: THYROID STIMULATING HORMONE 0.94 mIU/L (0.46-4.68)
--- NOTE | 2017-03-22 10:09 | CP.PCM.PN ---
Addendum entered and electronically signed by Suzanne Mix DO 03/22/17 17:17: Patient's Blood and Urine cultures: Gram negative rods Addendum entered and electronically signed by Suzanne Mix DO 03/22/17 17:02: patient fell and hit the back of her head at the toilet f/u with PT OT 03/23 for subacute rehab no SCDs d/t not tolerating touch on posterior calves. Glucerna 3 times a day, vanilla Urine Culture: Gram negative bacilli DC gabapentin if doppler of arteries show Peripheral arterial disease. Original Note: <Suzanne Mix - Last Filed: 03/22/17 11:14> Subjective - Date & Time of Evaluation Date of Evaluation: 03/22/17 Time of Evaluation: 10:11 - Subjective Subjective: Progress note Patient seen and examined at bedside. Dr. Felice Valdez explained to the patient that she will be having doppler of arterial bilateral extremities. Patient stated that she. No acute events overnight. Patient has pain in her genital region and pain in her left leg at the back of the calf. Objective - Vital Signs/Intake and Output Vital Signs (last 24 hours): Temp Pulse Resp BP Pulse Ox 97.8 F 94 H 18 120/69 99 03/22/17 07:40 03/22/17 07:40 03/22/17 07:40 03/22/17 09:01 03/22/17 07:40 Intake and Output: 03/22/17 03/22/17 06:59 18:59 Intake Total 300 Balance 300 - Medications Medications: Current Medications Acetaminophen (Tylenol 325mg Tab) 650 mg PO Q6 [facility] Stop: 03/22/17 18:01 Last Admin: 03/22/17 05:37 Dose: 650 mg Dextrose (Dextrose 50% Inj) 0 ml IVP .STAT PRN; Protocol PRN Reason: Hypoglycemia Protocol Dextrose (Glutose 15) 0 gm PO .ONCE PRN; Protocol PRN Reason: Hypoglycemia Protocol Docusate Sodium (Colace) 100 mg PO TID [facility] Last Admin: 03/22/17 09:00 Dose: 100 mg Enalapril Maleate (Vasotec) 5 mg PO DAILY [facility] Last Admin: 03/22/17 09:01 Dose: 5 mg Gabapentin (Neurontin) 100 mg PO HS [facility] Last Admin: 03/21/17 21:29 Dose: 100 mg Glucagon (Glucagen Diagnostic Kit) 0 mg IM .STAT PRN; Protocol PRN Reason: Hypoglycemia Protocol Heparin Sodium (Porcine) (Heparin) 5,000 units SC Q8 [facility] Last Admin: 03/22/17 05:37 Dose: 5,000 units Sodium Chloride (Sodium Chloride 0.9%) 1,000 mls @ 75 mls/hr IV .[id number] [facility] Last Admin: 03/22/17 05:38 Dose: 75 mls/hr Cefepime HCl 1 gm/ Dextrose 50 mls @ 100 mls/hr IVPB Q12H [facility] Last Admin: 03/22/17 05:38 Dose: 100 mls/hr Dextrose (Dextrose 5% In Water 1000 Ml) 1,000 mls @ 0 mls/hr IV .Q0M PRN; Protocol; Per Protocol PRN Reason: Hypoglycemia Protocol Insulin Human Regular (Novolin R) 0 unit SC ACHS [facility] PRN Reason: Protocol Last Admin: 03/22/17 07:51 Dose: Not Given Pantoprazole Sodium (Protonix Inj) 40 mg IVP DAILY [facility] Last Admin: 03/22/17 08:59 Dose: 40 mg - Labs Labs: 03/22/17 07:57 03/22/17 07:57 - Constitutional Appears: Non-toxic, No Acute Distress - Head Exam Head Exam: NORMAL INSPECTION - Eye Exam Eye Exam: EOMI Additional comments: lens placement s/p cataract surgery, irregularly shaped pupils - ENT Exam ENT Exam: Mucous Membranes Dry - Neck Exam Neck Exam: Full ROM - Respiratory Exam Respiratory Exam: Clear to Ausculation Bilateral, NORMAL BREATHING PATTERN. absent: Accessory Muscle Use, Respiratory Distress - Cardiovascular Exam Cardiovascular Exam: REGULAR RHYTHM, +S1, +S2 - GI/Abdominal Exam GI & Abdominal Exam: Soft. absent: Tenderness - Exam External exam: Erythema Additional comments: pain on plapation of the mons pubis, and labia majora bilaterally - Back Exam Back Exam: CVA tenderness (R), Full ROM, NORMAL INSPECTION. absent: rash noted Additional comments: Positive CVA tenderness on physical exam noted at right flank Area of warmth mainly on lower thoracic and lumbar spine. Upper thoracic spine was cooler to the touch on physical exam. - Neurological Exam Neurological Exam: Alert, Awake, Normal Gait Neuro motor strength exam: Left Upper Extremity: 5, Right Upper Extremity: 5, Left Lower Extremity: 5, Right Lower Extremity: 5 - Skin Skin Exam: Dry, Warm Additional comments: on physical exam, no ulcers noted on bony prominences. pulses of lower extremities palpable bilaterally (DP, PT and AT), feet were warm to the touch Assessment and Plan - Assessment and Plan (Free Text) Assessment: 1 code sepsis - called in ER, likely secondary to UTI, secondary to bilateral ureteral stents v cystocele f/u blood cx x 2 f/u urine cx x 2 ID Consult: Dr. Valdez Urology Consult: Dr. Maty Aburto 03/21 14:48 Lactate 3.4 03/21 repeat at 17:48pm 1.0 03/21 repeat at 20:48 1.4 STAT ABG ordered to follow up EKG stat for tachycardia likely secondary to fever, treating with tylenol Vitals Q4H Maxipime 1gm IVQ12H to start 03/22/17 in AM NS 75cc/hr Tylenol 650mg POQ6H for 24 hours starting 6am 03/22/17 f/u Vitals, AM CBC, CMP 2 hx of b/l stent placement 02/20/1703/21 abdominal flat plate 1 view: bilateral nephroureteral stents. punctate radiopaque density/calculus adjacent to distal right ureter Urology Consult: Dr. Maty Aburto (see Assessment and plan #1) 2 UTI 03/21 antibiotics in ER Maxipime 2gm IV once 03/21 antibiotics on the floor: Maxipime 1gm IVQ12H start 03/22/17 (see Assessment and plan #1) (see Assessment and plan #1) note: Patient isn't incontinent, but tries not to go to the bathroom until she has to, and has episodes where she cannot reach the bathroom in time. 3 Tachycardia (see Assessment and plan #1) 4 Lower extremity leg pain b/l Tibial/fibula XRAY: severe degenerative changes duplex lower extremity arteries bilaterally were negative for DVT f/u 03/22 bilateral arterial dopplers of legs Gabapentin 100mg QHS 5 Anemia likely secondary to chronic disease hemoglobin/hematocrit stable compared to 01/20 f/u AM CBC with differential 6 Hx T2DM Janumet, hold due to UTI, not on formulary Low dose ISS accuchek q6h Hypoglycemic Protocol Vegetarian, Low Sodium, heart healthy, Carbohydrate consistent diet f/u Hgb A1c 7 Hx HTN Enlapril 5mg POQD starting 03/22/17 8 Hx of cystocele 03/21 OBGYN consult: Dr. Craig for pessary placement, patient had appointment for evaluation this coming week (03/24) 9 Hx constipation Patient's last BM was yesterday 03/20 - characterized as small and soft Patient takes OTC stool softener at home. colace 100mg POTID 10 Hx Osteoarthritis monitor patient PT OT eval and treat, multiple falls and for SHARA 11 Hx recent fall, hit head 03/21 CT scan w/o contrast of head no acute hemorrhage if negative, start patient on Heparin 5000 SC Q8H 03/22 Patient started on Heparin 5000 SC Q8H Please make note patient walks with a walker at home for the past 10 years. Patient and daughter states that her leg pain is chronic issue and has been going on for years. Patient's leg pain has been very bad for the past few months , but the past 4 days were the worst, which is why the patient came to the hospital. PT Eval and treat Hx bilateral nephroureteral stents 02/20/17 radioopaque density adjacent to distal right ureter (possible calcified phlebolith) abdominal xray: non focal infiltrate or effusion. stable nodule projecting over left upper lung zone, patient has a history of nodule in lung Prophylaxis DVT risk score 2 contraindicated due to recent fall, f/u CT head w/o contrast. if negative, start patient on Heparin 5,000 Q8H NO SCDs due to possible PAD Protonix 40mg IVP QD Vegetarian, Low Sodium, heart healthy, Carbohydrate consistent diet Health Proxy Patient's daughter: Jamila [phone] PT Eval and treat Dr. Felice Mix DO PGY1 <Felice Valdez - Last Filed: 03/22/17 19:58> Objective - Vital Signs/Intake and Output Vital Signs (last 24 hours): Temp Pulse Resp BP Pulse Ox 98.3 F 93 H 20 120/69 95 03/22/17 16:32 03/22/17 16:32 03/22/17 16:32 03/22/17 09:01 03/22/17 16:32 - Medications Medications: Current Medications Dextrose (Dextrose 50% Inj) 0 ml IVP .STAT PRN; Protocol PRN Reason: Hypoglycemia Protocol Dextrose (Glutose 15) 0 gm PO .ONCE PRN; Protocol PRN Reason: Hypoglycemia Protocol Docusate Sodium (Colace) 100 mg PO TID [facility] Last Admin: 03/22/17 19:18 Dose: 100 mg Enalapril Maleate (Vasotec) 5 mg PO DAILY [facility] Last Admin: 03/22/17 09:01 Dose: 5 mg Gabapentin (Neurontin) 100 mg PO HS [facility] Last Admin: 03/21/17 21:29 Dose: 100 mg Glucagon (Glucagen Diagnostic Kit) 0 mg IM .STAT PRN; Protocol PRN Reason: Hypoglycemia Protocol Heparin Sodium (Porcine) (Heparin) 5,000 units SC Q8 [facility] Last Admin: 03/22/17 14:36 Dose: 5,000 units Sodium Chloride (Sodium Chloride 0.9%) 1,000 mls @ 75 mls/hr IV .[id number] [facility] Last Admin: 03/22/17 05:38 Dose: 75 mls/hr Cefepime HCl 1 gm/ Dextrose 50 mls @ 100 mls/hr IVPB Q12H [facility] Last Admin: 03/22/17 19:17 Dose: 100 mls/hr Dextrose (Dextrose 5% In Water 1000 Ml) 1,000 mls @ 0 mls/hr IV .Q0M PRN; Protocol; Per Protocol PRN Reason: Hypoglycemia Protocol Insulin Human Regular (Novolin R) 0 unit SC ACHS [facility] PRN Reason: Protocol Last Admin: 03/22/17 19:18 Dose: Not Given Pantoprazole Sodium (Protonix Inj) 40 mg IVP DAILY [facility] Last Admin: 03/22/17 08:59 Dose: 40 mg - Labs Labs: 03/22/17 07:57 03/22/17 07:57 Attending/Attestation - Attestation I have personally seen and examined this patient.: Yes I have fully participated in the care of the patient.: Yes I have reviewed all pertinent clinical information, including history, physical exam and plan: Yes Notes (Text): 03/22/17 19:36 Patient was seen and examined at 11:30 AM. Exam, assessment and plan were thoroughly gone over with the resident. Also on ROS: NO bowel movement since Thursday Bilateral lower leg pain comes and goes and is cramping in nature Also on Exam: HEENT: Bilateral pupils are irregular in shape however both are reactive to light/accomodation (history of cataract surgery and lens replacement) Assessments: 1). Sepsis Secondary to Gram Negative Bacteremia and UTI As per Blood Culture 03/21/17 and Urine Culture 03/21/17: F/U sensitivities Cefepime 1 gm IV Q12H (03/21/17) NS @ 75 ml/hr Tylenol 650 mg PO Q6H till 6 PM 03/22/17 Chest X Ray shows NO focal infiltrate and Stable Lung Nodule ID Dr. Valdez Urology Dr. Frank (history of bilateral ureteral stents placed in February 2017) 2). Tachycardia Improved and <100 3). Bilateral Lower Leg Pain She was placed on Gabapentin 100 mg PO HS by her PMD Dr. Anthony Marquez as outpatient X Ray of the Bilateral Tib/Fib showed calcified arteries F/U Arterial Dopplers of the Legs to help rule out PAD D/C the Gabapentin should the Arterial Dopplers show evidence of PAD and if so get Vascular Dr. Ruiz's input 4). Anemia Likely Secondary to Chronic Disease HgB/Hct are currently stable Iron Level is low therefore Ferrous Sulfate 325 mg PO BID starting 03/23/17 5). DM 2 Holding Januvia secondary to the current Bacteremia and UTI Low Dose ISS and currently glucose is under control On MACARENA I: Enalpril 5 mg PO 1x/day Not on STATIN considering her LDL is 43 6). Cystocele This is likely causing her frequent UTIs Spoke with service center specialist Dr. Leta Valdez who has seen patient as an outpatient and also saw her on 03/22/17: Dr. Leta Valdez will see patient in office [address] pessary at that time hopefully after the Sepsis has resolved. She has already provided family with her office information to schedule an appointment after discharge 7). History of Constipation Last bowel movement was this past Thursday03/20/17 Please keep in mind that the patient does not eat much at home and she was encouraged to do so today Glucerna Shake Vanilla 3x/day with her meals: which her daughter will be bringing for her and a Vegetarian Diet has also been ordered Colace 100 mg PO 3x/day If NO bowel movement by Thursday03/23/17 morning, then Medicine Team should provide a dose of Dulcolax Hopefull getting her out of bed with PT/OT on Thursday03/23/17 (she is normally not very mobile at home and predominantly bed bound secondary to pain the bilateral lower legs) will also help to stimulate the bowels. 8). HTN Enalapril 5 mg PO 1x/day 9). Osteoarthritis Bilateral Hands and Knees Monitor for now 10). History of Fall at Home 2 1/2 weeks ago she feel in the bathroom: after urinating she got up and held onto her walker, got dizzy but did not pass out, and fell backwards hitting the back of her head on the toilet CT Head w/o contrast 03/21/17 did not show any hemorrhage or acute abnormality F/U PT/OT evaluation and treatment 11). Low Magnesium Magnesium Sulfate 1 gm IV x 1 dose 03/22/17 12). Prophylaxis F/U PT/OT evaluation and treatment for possible SHARA: she normally uses a walker to get around at home but the extend of her activity is from her bed to her bathroom and then back to bed Heparin 5,000 Units SC Q8H and NO SCDs due to the possible PAD (she jumps with pain when pressing down on her lower legs when testing for edema as part of extremities exam). Protonix 40 mg PO 1x/day Vegetarian Diet Glucerna Shakes Vanilla 3x/day Felice Valdez D.O.
--- NOTE | 2017-03-22 14:37 | CP.PCM.CON ---
History of Present Illness - History of Present Illness History of Present Illness: Patient's daughter states patient has been having a urine infection since September and has been constantly on antibiotics. Her daughter states that there is increased frequency and burning with urination. Patient noted for a week, along with the leg pain, patient does not get up because of the pain and urinates more in the bed than before. ID requested for this Patient sees Dr. Aburto who suggested seeing Dr. Huong Valdez (OBGYN) for pessary insertion. Patient has a PMH of DM, HTN, and cystocele. code sepsis was called in the ED prior to admission interview: Patient had tachycardia, and lactate 3.4 PMH: DM, HTN, cystocele, osteoarthritis Surgeries: bilateral ureteral stent placement 02/20/17 Allergies: none Review of Systems - Review of Systems All systems: reviewed and no additional remarkable complaints except - Constitutional Constitutional: As Per HPI - EENT Eyes: absent: As Per HPI, Blind Spots, Blurred Vision, Change in Vision, Decreased Night Vision, Diplopia, Discharge, Dry Eye, Exophthalmos, Floaters, Irritation, Itchy Eyes, Loss of Peripheral Vision, Pain, Photophobia, Requires Corrective Lenses, Sees Flashes, Spots in Vision, Tunnel Vision, Other Visual Disturbances, Loss of Vision, Other Ears: absent: As Per HPI, Decreased Hearing, Ear Discharge, Ear Pain, Tinnitus, Abnormal Hearing, Disequilibrium, Dizziness, Other Nose/Mouth/Throat: absent: As Per HPI, Epistaxis, Nasal Congestion, Nasal Discharge, Nasal Obstruction, Nasal Trauma, Nose Pain, Post Nasal Drip, Sinus Pain, Sinus Pressure, Bleeding Gums, Change in Voice, Dental Pain, Dry Mouth, Dysphagia, Halitosis, Hoarsness, Lip Swelling, Mouth Lesions, Mouth Pain, Odynophagia, Sore Throat, Throat Swelling, Tongue Swelling, Facial Pain, Neck Pain, Neck Mass, Other - Breasts Breasts: absent: As Per HPI, Change in Shape, Mass, Pain, Nipple Discharge, Nipple Inversion, Skin Changes, Swelling, Other - Cardiovascular Cardiovascular: absent: As Per HPI, Acrocyanosis, Chest Pain, Chest Pain at Rest , Chest Pain with Activity, Claudication, Diaphoresis, Dyspnea, Dyspnea on Exertion, Edema, Irregular Heart Rhythm, Pain Radiating to Arm/Neck/Jaw, Leg Edema, Leg Ulcers, Lightheadedness, Orthopnea, Palpitations, Paroxysmal Nocturnal Dyspnea, Pedal Edema, Radiating Pain, Rapid Heart Rate, Slow Heart Rate, Syncope, Other - Respiratory Respiratory: absent: As Per HPI, Cough, Dyspnea, Hemoptysis, Dyspnea on Exertion , Wheezing, Snoring, Stridor, Pain on Inspiration, Chest Congestion, Excessive Mucous Production, Change in Mucous Color, Pain with Coughing, Other - Gastrointestinal Gastrointestinal: absent: As Per HPI, Abdominal Pain, Belching, Bloating, Change in Bowel Habits, Change in Stool Character, Coffee Ground Emesis, Constipation, Cramping, Diarrhea, Dyspepsia, Dysphagia, Early Satiety, Excessive Flatus, Fecal Incontinence, Heartburn, Hematemesis, Hematochezia, Loose Stools, Melena, Nausea, Odynophagia, Temesmus, Vomiting, Other - Genitourinary Genitourinary: As Per HPI - Reproductive: Female Reproductive:Female: absent: As Per HPI, Amenorrhea, Amenorrhea/ Control, Currently Menstual, Cycle <21 Days, Cycle >35 Days, Cycle Variable, Menses 1-7 Days, Menses >/= 8 Days, Menses Variable, Cycle > 4 Weeks Between, No Menses for 6 Months, Heavy Menses, Light Menses, Normal Menses, Spotting Between Cycles , S/P Hysterectomy, Menopausal, Post Menopausal, Premenarche, Abnormal Vaginal Bleeding, Dysmenorrhea, Dyspareunia, Genital Lesions, Genital Pruritis, Pelvic Pain, Prolapse Symptoms, Sexual Dysfunction, Vaginal Discharge, Vaginal Dryness , Vaginal Odor, Vaginal Pruritis, Other - Menstruation Menstruation: absent: As Per HPI, Amenorrhea, Amenorrhea/ Control, Currently Menstual, Cycle <21 Days, Cycle >35 Days, Cycle Variable, Menses 1-7 Days, Menses >/= 8 Days, Menses Variable, Cycle > 4 Weeks Between, No Menses for 6 Months, Heavy Menses, Light Menses, Normal Menses, Spotting Between Cycles , S/P Hysterectomy, Menopausal, Post Menopausal, Premenarche, Abnormal Vaginal Bleeding, Dysmenorrhea, Other - Musculoskeletal Musculoskeletal: As Per HPI - Integumentary Integumentary: absent: As Per HPI, Acne, Alopecia, Bleeding Lesions, Change in Hair, Change in Nails, Change in Pigmentation, Changing Lesions, Dry Skin, Erythema, Furuncle, Hirsutism, Lesions, New Lesions, Non-Healing Lesions, Photosensitivity, Pruritus, Rash, Skin Pain, Skin Ulcer, Sores, Striae, Swelling , Unusual Bruising, Wounds, Jaundice, Other - Neurological Neurological: absent: As Per HPI, Abnormal Gait, Abnormal Hearing, Abnormal Movements, Abnormal Speech, Behavioral Changes, Burning Sensations, Confusion, Convulsions, Disequilibrium, Dizziness, Numbness, Focal Weakness, Frequent Falls , Headaches, Lack of Coordination, Loss of Vision, Memory Loss, Paresthesias, Radicular Pain, Restless Legs, Sensory Deficit, Syncope, Tingling, Tremor, Vertigo, Weakness, Other Visual Disturbances, Other - Psychiatric Psychiatric: absent: As Per HPI, Abnormal Sleep Pattern, Anhedonia, Anxiety, Auditory Hallucinations, Behavioral Changes, Change in Appetite, Change in Libido, Confusion, Depression, Difficulty Concentrating, Hallucinations, Homicidal Ideation, Hopelessness, Irritability, Memory Loss, Mood Swings, Panic Attacks, Paranoia, Suicidal Ideation, Visual Hallucinations, Tactile Hallucinations, Other - Endocrine Endocrine: absent: As Per HPI, Change in Body Appearance, Change in Libido, Cold Intolorance, Deepening of Voice, Excessive Sweating, Fatigue, Flushing, Heat Intolorance, Increase in Ring/Shoe/Hat Size, Palpitations, Polydipsia, Polyphagia, Polyuria, Other - Hematologic/Lymphatic Hematologic: absent: As Per HPI, Easy Bleeding, Easy Bruising, Lymphadenopathy, Other Past Patient History - Past Medical History & Family History Past Medical History?: Yes - Past Social History Smoking Status: Never Smoked Chewing Tobacco Use: No Cigar Use: No Alcohol: None Drugs: Denies Home Situation {Lives}: With Family - CARDIAC Hx Hypertension: Yes Hx Peripheral Edema: Yes - PULMONARY Hx Respiratory Disorders: Yes (ABN CHEST X RAY) - NEUROLOGICAL Hx Neurological Disorder: No - HEENT Hx HEENT Problems: Yes Hx Cataracts: Yes (BILAT IOL) - RENAL Other/Comment: HYDRONEPHROSIS - ENDOCRINE/METABOLIC Hx Endocrine Disorders: Yes Hx Diabetes Mellitus Type 2: Yes - HEMATOLOGICAL/ONCOLOGICAL Hx Blood Disorders: No - INTEGUMENTARY Hx Dermatological Problems: No - MUSCULOSKELETAL/RHEUMATOLOGICAL Hx Falls: No - GASTROINTESTINAL Hx Gastrointestinal Disorders: Yes (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) - GENITOURINARY/GYNECOLOGICAL Hx Genitourinary Disorders: Yes Hx Urinary Tract Infection: Yes - PSYCHIATRIC Hx Substance Use: No - SURGICAL HISTORY Hx Surgeries: Yes Hx Breast Biopsy: Yes (LEFT) Hx Cataract Extraction: Yes (BILAT IOL) Other/Comment: Kidney stent - ANESTHESIA Hx Anesthesia: Yes Hx Anesthesia Reactions: No Hx Malignant Hyperthermia: No Meds Allergies/Adverse Reactions: Allergies Allergy/AdvReac Type Severity Reaction Status Date / Time No Known Allergies Allergy Verified 03/21/17 10:50 - Medications Medications: Current Medications Acetaminophen (Tylenol 325mg Tab) 650 mg PO Q6 [facility] Stop: 03/22/17 18:01 Last Admin: 03/22/17 11:37 Dose: 650 mg Dextrose (Dextrose 50% Inj) 0 ml IVP .STAT PRN; Protocol PRN Reason: Hypoglycemia Protocol Dextrose (Glutose 15) 0 gm PO .ONCE PRN; Protocol PRN Reason: Hypoglycemia Protocol Docusate Sodium (Colace) 100 mg PO TID [facility] Last Admin: 03/22/17 09:00 Dose: 100 mg Enalapril Maleate (Vasotec) 5 mg PO DAILY [facility] Last Admin: 03/22/17 09:01 Dose: 5 mg Gabapentin (Neurontin) 100 mg PO HS [facility] Last Admin: 03/21/17 21:29 Dose: 100 mg Glucagon (Glucagen Diagnostic Kit) 0 mg IM .STAT PRN; Protocol PRN Reason: Hypoglycemia Protocol Heparin Sodium (Porcine) (Heparin) 5,000 units SC Q8 [facility] Last Admin: 03/22/17 05:37 Dose: 5,000 units Sodium Chloride (Sodium Chloride 0.9%) 1,000 mls @ 75 mls/hr IV .[id number] [facility] Last Admin: 03/22/17 05:38 Dose: 75 mls/hr Cefepime HCl 1 gm/ Dextrose 50 mls @ 100 mls/hr IVPB Q12H [facility] Last Admin: 03/22/17 05:38 Dose: 100 mls/hr Dextrose (Dextrose 5% In Water 1000 Ml) 1,000 mls @ 0 mls/hr IV .Q0M PRN; Protocol; Per Protocol PRN Reason: Hypoglycemia Protocol Insulin Human Regular (Novolin R) 0 unit SC ACHS [facility] PRN Reason: Protocol Last Admin: 03/22/17 12:00 Dose: Not Given Pantoprazole Sodium (Protonix Inj) 40 mg IVP DAILY [facility] Last Admin: 03/22/17 08:59 Dose: 40 mg Physical Exam - Constitutional Appears: Non-toxic, No Acute Distress, Chronically Ill - Head Exam Head Exam: ATRAUMATIC, NORMAL INSPECTION, NORMOCEPHALIC - Eye Exam Eye Exam: PERRL. absent: Scleral icterus - ENT Exam ENT Exam: Mucous Membranes Dry, Normal External Ear Exam - Neck Exam Neck exam: Negative for: Lymphadenopathy - Respiratory Exam Respiratory Exam: Decreased Breath Sounds, Clear to Auscultation Bilateral - Cardiovascular Exam Cardiovascular Exam: REGULAR RHYTHM, +S1, +S2 - GI/Abdominal Exam GI & Abdominal Exam: Diminished Bowel Sounds, Soft. absent: Tenderness - Rectal Exam Rectal Exam: Deferred - Exam Exam: NORMAL INSPECTION - Extremities Exam Extremities exam: Positive for: pedal pulses present. Negative for: calf tenderness, pedal edema, tenderness - Back Exam Back exam: absent: CVA tenderness (L), CVA tenderness (R), paraspinal tenderness - Neurological Exam Neurological exam: Alert, CN II-XII Intact, Oriented x3, Reflexes Normal - Psychiatric Exam Psychiatric exam: Depressed - Skin Skin Exam: Dry Results - Vital Signs Recent Vital Signs: Last Vital Signs Temp 97.8 F 03/22/17 07:40 Pulse 94 H 03/22/17 07:40 Resp 18 03/22/17 07:40 BP 120/69 03/22/17 09:01 Pulse Ox 99 03/22/17 07:40 - Labs Result Diagrams: 03/22/17 07:57 03/22/17 07:57 Labs: Laboratory Results - last 24 hr 03/21/17 03/21/17 03/21/17 14:48 17:18 17:24 WBC RBC Hgb Hct MCV MCH MCHC RDW Plt Count MPV Neut % (Auto) Lymph % (Auto) Newton % (Auto) Eos % (Auto) Baso % (Auto) Neut # Lymph # Newton # Eos # Baso # Puncture Site Rr pCO2 24 L pO2 21 L 112 H HCO3 19.6 L ABG pH 7.44 ABG Total CO2 17.0 L ABG O2 Saturation 100.3 H ABG Base Excess -6.8 L ABG Hemoglobin 8.2 L ABG Carboxyhemoglobin 2.2 H POC ABG HHb (Measured) -0.3 L ABG Methemoglobin 1.1 Kalen Test Po VBG pH 7.27 L VBG pCO2 31 L VBG HCO3 14.1 VBG Total CO2 15.2 L VBG O2 Sat (Calc) 36.4 L VBG Base Excess -11.4 L VBG Potassium 4.4 A-a O2 Difference 8.0 Respiratory Index 0.1 Hgb O2 Saturation 96.9 Sodium 143.0 Chloride 113.0 H Glucose 132 H Lactate 3.4 H FiO2 21.0 Potassium Carbon Dioxide Anion Gap BUN Creatinine Est GFR ( Amer) Est GFR (Non-Af Amer) POC Glucose (mg/dL) 140 H Random Glucose Hemoglobin A1c Lactic Acid Calcium Phosphorus Magnesium Iron TIBC % Saturation Total Bilirubin AST ALT Alkaline Phosphatase Total Protein Albumin Globulin Albumin/Globulin Ratio Triglycerides Cholesterol LDL Cholesterol Direct HDL Cholesterol Free T4 TSH 3rd Generation Venous Blood Potassium 4.4 03/21/17 03/21/17 03/21/17 18:11 21:06 21:08 WBC RBC Hgb Hct MCV MCH MCHC RDW Plt Count MPV Neut % (Auto) Lymph % (Auto) Newton % (Auto) Eos % (Auto) Baso % (Auto) Neut # Lymph # Newton # Eos # Baso # Puncture Site pCO2 pO2 HCO3 ABG pH ABG Total CO2 ABG O2 Saturation ABG Base Excess ABG Hemoglobin ABG Carboxyhemoglobin POC ABG HHb (Measured) ABG Methemoglobin Kalen Test VBG pH VBG pCO2 VBG HCO3 VBG Total CO2 VBG O2 Sat (Calc) VBG Base Excess VBG Potassium A-a O2 Difference Respiratory Index Hgb O2 Saturation Sodium Chloride Glucose Lactate FiO2 Potassium Carbon Dioxide Anion Gap BUN Creatinine Est GFR ( Amer) Est GFR (Non-Af Amer) POC Glucose (mg/dL) 120 H Random Glucose Hemoglobin A1c Lactic Acid 1.0 1.4 Calcium Phosphorus Magnesium Iron TIBC % Saturation Total Bilirubin AST ALT Alkaline Phosphatase Total Protein Albumin Globulin Albumin/Globulin Ratio Triglycerides Cholesterol LDL Cholesterol Direct HDL Cholesterol Free T4 TSH 3rd Generation Venous Blood Potassium 03/22/17 03/22/17 03/22/17 06:12 07:57 07:57 WBC 6.3 RBC 3.53 L Hgb 9.4 L Hct 28.9 L MCV 81.8 MCH 26.5 L MCHC 32.4 L RDW 15.7 H Plt Count 367 MPV 7.7 Neut % (Auto) 66.0 Lymph % (Auto) 17.6 L Newton % (Auto) 14.1 H Eos % (Auto) 1.9 Baso % (Auto) 0.4 Neut # 4.1 Lymph # 1.1 Newton # 0.9 H Eos # 0.1 Baso # 0.0 Puncture Site pCO2 pO2 HCO3 ABG pH ABG Total CO2 ABG O2 Saturation ABG Base Excess ABG Hemoglobin ABG Carboxyhemoglobin POC ABG HHb (Measured) ABG Methemoglobin Kalen Test VBG pH VBG pCO2 VBG HCO3 VBG Total CO2 VBG O2 Sat (Calc) VBG Base Excess VBG Potassium A-a O2 Difference Respiratory Index Hgb O2 Saturation Sodium 137 Chloride 111 H Glucose Lactate FiO2 Potassium 4.1 Carbon Dioxide 20 L Anion Gap 10 BUN 17 Creatinine 0.8 Est GFR ( Amer) > 60 Est GFR (Non-Af Amer) > 60 POC Glucose (mg/dL) 121 H Random Glucose 118 H Hemoglobin A1c Lactic Acid Calcium 7.9 L Phosphorus 3.0 Magnesium 1.5 L Iron TIBC % Saturation Total Bilirubin 0.3 AST 23 ALT 35 Alkaline Phosphatase 75 Total Protein 7.0 Albumin 2.9 L Globulin 3.0 Albumin/Globulin Ratio 1.0 Triglycerides 117 Cholesterol 92 LDL Cholesterol Direct 43 HDL Cholesterol 24 L Free T4 TSH 3rd Generation 0.94 Venous Blood Potassium 03/22/17 03/22/17 03/22/17 07:57 07:57 07:57 WBC RBC Hgb Hct MCV MCH MCHC RDW Plt Count MPV Neut % (Auto) Lymph % (Auto) Newton % (Auto) Eos % (Auto) Baso % (Auto) Neut # Lymph # Newton # Eos # Baso # Puncture Site pCO2 pO2 HCO3 ABG pH ABG Total CO2 ABG O2 Saturation ABG Base Excess ABG Hemoglobin ABG Carboxyhemoglobin POC ABG HHb (Measured) ABG Methemoglobin Kalen Test VBG pH VBG pCO2 VBG HCO3 VBG Total CO2 VBG O2 Sat (Calc) VBG Base Excess VBG Potassium A-a O2 Difference Respiratory Index Hgb O2 Saturation Sodium Chloride Glucose Lactate FiO2 Potassium Carbon Dioxide Anion Gap BUN Creatinine Est GFR ( Amer) Est GFR (Non-Af Amer) POC Glucose (mg/dL) Random Glucose Hemoglobin A1c 5.7 Lactic Acid Calcium Phosphorus Magnesium Iron < 10 L TIBC 252 % Saturation < 4.0 L Total Bilirubin AST ALT Alkaline Phosphatase Total Protein Albumin Globulin Albumin/Globulin Ratio Triglycerides Cholesterol LDL Cholesterol Direct HDL Cholesterol Free T4 1.82 TSH 3rd Generation Venous Blood Potassium 03/22/17 03/22/17 11:34 13:51 WBC RBC Hgb Hct MCV MCH MCHC RDW Plt Count MPV Neut % (Auto) Lymph % (Auto) Newton % (Auto) Eos % (Auto) Baso % (Auto) Neut # Lymph # Newton # Eos # Baso # Puncture Site pCO2 pO2 HCO3 ABG pH ABG Total CO2 ABG O2 Saturation ABG Base Excess ABG Hemoglobin ABG Carboxyhemoglobin POC ABG HHb (Measured) ABG Methemoglobin Kalen Test VBG pH VBG pCO2 VBG HCO3 VBG Total CO2 VBG O2 Sat (Calc) VBG Base Excess VBG Potassium A-a O2 Difference Respiratory Index Hgb O2 Saturation Sodium Chloride Glucose Lactate FiO2 Potassium Carbon Dioxide Anion Gap BUN Creatinine Est GFR ( Amer) Est GFR (Non-Af Amer) POC Glucose (mg/dL) 155 H Random Glucose Hemoglobin A1c Lactic Acid 2.4 H Calcium Phosphorus Magnesium Iron TIBC % Saturation Total Bilirubin AST ALT Alkaline Phosphatase Total Protein Albumin Globulin Albumin/Globulin Ratio Triglycerides Cholesterol LDL Cholesterol Direct HDL Cholesterol Free T4 TSH 3rd Generation Venous Blood Potassium Assessment & Plan (1) Sepsis Status: Acute (2) UTI (urinary tract infection) Status: Acute - Assessment and Plan (Free Text) Assessment: swithched to cefepime for better gram neg coverage- failed out pt rx 30% E Coli resistant to quinolones May need merrem ? r/o ESBL and [employer] eval
[2017-03-22] MEDS ORDERED: Magnesium Sulfate 1 gm in D5W 1 GM/100 ML BAG IVPB ONE (19:53)
[2017-03-23] MEDS: Sodium Chloride 0.9% 1,000 ML IV SCH ×3 (02:00→22:39)
[2017-03-23 07:02] LABS: BASO # 0.1 K/uL (0.0-0.2); BASO % 0.7 % (0.0-2.0); EOS # 0.1 K/uL (0.0-0.7); EOS % 1.7 % (0.0-4.0); HEMATOCRIT 29.1 % (34.0-47.0); LYMPH # 2.1 K/uL (1.0-4.3); LYMPH % 24.2 % (20.0-40.0); MEAN CELL VOLUME 81.1 fL (81.0-99.0); MEAN CORPUSCULAR HEMOGLOBIN 26.1 pg (27.0-31.0); MEAN CORPUSCULAR HGB CONC 32.1 g/dL (33.0-37.0); MEAN PLATELET VOLUME 7.9 fL (7.2-11.7); MONO # 1.1 K/uL (0.0-0.8); RED CELL DISTRIBUTION WIDTH 15.8 % (11.5-14.5); WHITE BLOOD COUNT 8.8 K/uL (4.8-10.8)
[2017-03-23 07:34] LABS: ALB/GLOB RATIO 0.9 (1.0-2.1); ALKALINE PHOSPHATASE 81 U/L (38-126); ALT/SGPT 35 U/L (9-52); AST/SGOT 25 U/L (14-36); BILIRUBIN,TOTAL 0.2 mg/dL (0.2-1.3); BLOOD UREA NITROGEN 11 mg/dL (7-17); CALCIUM 8.1 mg/dl (8.6-10.4); CARBON DIOXIDE 20 mmol/L (22-30); CHLORIDE 112 mmol/L (98-107); GFR AFRICAN-AMERICAN > 60; GLUCOSE,RANDOM 121 mg/dL (65-105); MAGNESIUM 1.7 mg/dL (1.6-2.3); PHOSPHOROUS 2.4 mg/dL (2.5-4.5); POTASSIUM 3.6 mmol/L (3.6-5.2); SODIUM 139 mmol/L (132-148); TOTAL PROTEIN 5.7 g/dL (6.3-8.3)
[2017-03-23] MEDS: (Novolin R) Insulin Human Regular 100 units/ml vial SC SCH ×4 (07:51→21:53)
--- NOTE | 2017-03-23 10:25 | VASCLAB ---
PROCEDURE: Lower Extremity Venous Duplex Exam. HISTORY: lower leg pain, calf PRIORS: None. TECHNIQUE: Bilateral common femoral, femoral, popliteal and posterior tibial, peroneal and great saphenous veins were evaluated. Flow was assessed with color Doppler, compressibility, assessment of phasic flow and augmentation response. Report prepared by Ignacio Cummins, T FINDINGS: RIGHT: 1. Common Femoral Vein: 1.1. Compressibility - Fully compressible: Thrombus - None : Flow - Phasic: Augmentation -Normal: Reflux - . 2. Femoral Vein: 2.1. Compressibility - Fully compressible: Thrombus - None : Flow - Phasic: Augmentation -Normal: Reflux - . 3. Popliteal Vein: 3.1. Compressibility - Fully compressible: Thrombus - None : Flow - Phasic: Augmentation -Normal: Reflux - . 4. Posterior Tibial Vein: 4.1. Compressibility - Fully compressible: Thrombus - None: Flow - : Augmentation -: Reflux - . 5. Peroneal Vein: 5.1. Compressibility - Fully compressible: Thrombus - None: Flow - : Augmentation -l: Reflux - . 6. Great Saphenous Vein: 6.1. Compressibility - Fully compressible: Thrombus - None: Flow - Phasic: Augmentation - : Reflux - . LEFT: 1. Common Femoral Vein: 1.1. Compressibility - Fully compressible: Thrombus - None: Flow - Phasic: Augmentation -Normal: Reflux - . 2. Femoral Vein: 2.1. Compressibility - Fully compressible: Thrombus - None: Flow - Phasic: Augmentation -Normal: Reflux - . 3. Popliteal Vein: 3.1. Compressibility - Fully compressible: Thrombus - None : Flow - Phasic: Augmentation -Normal: Reflux - . 4. Posterior Tibial Vein: 4.1. Compressibility - Fully compressible: Thrombus - None: Flow - : Augmentation -: Reflux - . 5. Peroneal Vein: 5.1. Compressibility - Fully compressible: Thrombus - None: Flow - : Augmentation -l: Reflux - . 6. Great Saphenous Vein: 6.1. Compressibility - Fully compressible: Thrombus - None: Flow - Phasic: Augmentation - : Reflux - . OTHER FINDINGS: Right: There was a fluid filled structure noted behind the knee which measured 3.6 x 3.7 x 0.8 centimeter, questionable Castellanos cyst. Left: None significant. IMPRESSION: Right: No evidence of deep or superficial vein thrombosis of the right lower extremity. . Left: No evidence of deep or superficial vein thrombosis of the left lower extremity.
--- NOTE | 2017-03-23 11:20 | CP.PCM.PN ---
Subjective - Date & Time of Evaluation Date of Evaluation: 03/23/17 Time of Evaluation: 10:00 - Subjective Subjective: ESBL + add merrem Objective - Vital Signs/Intake and Output Vital Signs (last 24 hours): Temp Pulse Resp BP Pulse Ox 98.3 F 101 H 20 106/58 L 96 03/23/17 07:39 03/23/17 10:44 03/23/17 07:39 03/23/17 10:48 03/23/17 07:39 Intake and Output: 03/23/17 03/23/17 06:59 18:59 Intake Total 750 Output Total 3 Balance 747 - Medications Medications: Current Medications Dextrose (Dextrose 50% Inj) 0 ml IVP .STAT PRN; Protocol PRN Reason: Hypoglycemia Protocol Dextrose (Glutose 15) 0 gm PO .ONCE PRN; Protocol PRN Reason: Hypoglycemia Protocol Docusate Sodium (Colace) 100 mg PO TID [facility] Last Admin: 03/23/17 10:47 Dose: 100 mg Enalapril Maleate (Vasotec) 5 mg PO DAILY [facility] Last Admin: 03/23/17 10:48 Dose: 5 mg Ferrous Sulfate (Feosol) 325 mg PO BID [facility] Last Admin: 03/23/17 10:48 Dose: 325 mg Gabapentin (Neurontin) 100 mg PO HS [facility] Last Admin: 03/22/17 21:51 Dose: 100 mg Glucagon (Glucagen Diagnostic Kit) 0 mg IM .STAT PRN; Protocol PRN Reason: Hypoglycemia Protocol Heparin Sodium (Porcine) (Heparin) 5,000 units SC Q8 [facility] Last Admin: 03/23/17 05:41 Dose: 5,000 units Sodium Chloride (Sodium Chloride 0.9%) 1,000 mls @ 75 mls/hr IV .[id number] [facility] Last Admin: 03/23/17 02:00 Dose: 75 mls/hr Dextrose (Dextrose 5% In Water 1000 Ml) 1,000 mls @ 0 mls/hr IV .Q0M PRN; Protocol; Per Protocol PRN Reason: Hypoglycemia Protocol Insulin Human Regular (Novolin R) 0 unit SC ACHS [facility] PRN Reason: Protocol Last Admin: 03/23/17 07:51 Dose: Not Given Pantoprazole Sodium (Protonix Inj) 40 mg IVP DAILY [facility] Last Admin: 03/23/17 10:48 Dose: 40 mg - Labs Labs: 03/23/17 06:47 03/23/17 06:47 Assessment and Plan (1) Sepsis Status: Acute (2) UTI (urinary tract infection) Status: Acute
--- NOTE | 2017-03-23 11:36 | CP.PCM.CON ---
Past Patient History - Past Medical History & Family History Past Medical History?: Yes - Past Social History Smoking Status: Never Smoked Chewing Tobacco Use: No Cigar Use: No Alcohol: None Drugs: Denies Home Situation {Lives}: With Family - CARDIAC Hx Hypertension: Yes Hx Peripheral Edema: Yes - PULMONARY Hx Respiratory Disorders: Yes (ABN CHEST X RAY) - NEUROLOGICAL Hx Neurological Disorder: No - HEENT Hx HEENT Problems: Yes Hx Cataracts: Yes (BILAT IOL) - RENAL Other/Comment: HYDRONEPHROSIS - ENDOCRINE/METABOLIC Hx Endocrine Disorders: Yes Hx Diabetes Mellitus Type 2: Yes - HEMATOLOGICAL/ONCOLOGICAL Hx Blood Disorders: No - INTEGUMENTARY Hx Dermatological Problems: No - MUSCULOSKELETAL/RHEUMATOLOGICAL Hx Falls: No - GASTROINTESTINAL Hx Gastrointestinal Disorders: Yes (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) - GENITOURINARY/GYNECOLOGICAL Hx Genitourinary Disorders: Yes Hx Urinary Tract Infection: Yes - PSYCHIATRIC Hx Substance Use: No - SURGICAL HISTORY Hx Surgeries: Yes Hx Breast Biopsy: Yes (LEFT) Hx Cataract Extraction: Yes (BILAT IOL) Other/Comment: Kidney stent - ANESTHESIA Hx Anesthesia: Yes Hx Anesthesia Reactions: No Hx Malignant Hyperthermia: No Meds Allergies/Adverse Reactions: Allergies Allergy/AdvReac Type Severity Reaction Status Date / Time No Known Allergies Allergy Verified 03/21/17 10:50 - Medications Medications: Current Medications Dextrose (Dextrose 50% Inj) 0 ml IVP .STAT PRN; Protocol PRN Reason: Hypoglycemia Protocol Dextrose (Glutose 15) 0 gm PO .ONCE PRN; Protocol PRN Reason: Hypoglycemia Protocol Docusate Sodium (Colace) 100 mg PO TID [facility] Last Admin: 03/23/17 10:47 Dose: 100 mg Enalapril Maleate (Vasotec) 5 mg PO DAILY [facility] Last Admin: 03/23/17 10:48 Dose: 5 mg Ferrous Sulfate (Feosol) 325 mg PO BID [facility] Last Admin: 03/23/17 10:48 Dose: 325 mg Gabapentin (Neurontin) 100 mg PO HS [facility] Last Admin: 03/22/17 21:51 Dose: 100 mg Glucagon (Glucagen Diagnostic Kit) 0 mg IM .STAT PRN; Protocol PRN Reason: Hypoglycemia Protocol Heparin Sodium (Porcine) (Heparin) 5,000 units SC Q8 [facility] Last Admin: 03/23/17 05:41 Dose: 5,000 units Sodium Chloride (Sodium Chloride 0.9%) 1,000 mls @ 75 mls/hr IV .[id number] [facility] Last Admin: 03/23/17 02:00 Dose: 75 mls/hr Dextrose (Dextrose 5% In Water 1000 Ml) 1,000 mls @ 0 mls/hr IV .Q0M PRN; Protocol; Per Protocol PRN Reason: Hypoglycemia Protocol Meropenem 500 mg/ Sodium (Chloride) 100 mls @ 100 mls/hr IVPB Q8 [facility] Insulin Human Regular (Novolin R) 0 unit SC ACHS [facility] PRN Reason: Protocol Last Admin: 03/23/17 07:51 Dose: Not Given Pantoprazole Sodium (Protonix Inj) 40 mg IVP DAILY [facility] Last Admin: 03/23/17 10:48 Dose: 40 mg Results - Vital Signs Recent Vital Signs: Last Vital Signs Temp 98.3 F 03/23/17 07:39 Pulse 101 H 03/23/17 10:44 Resp 20 03/23/17 07:39 BP 106/58 L 03/23/17 10:48 Pulse Ox 96 03/23/17 07:39 - Labs Result Diagrams: 03/23/17 06:47 03/23/17 06:47 Labs: Laboratory Results - last 24 hr 03/22/17 03/22/17 03/22/17 11:34 13:51 17:03 WBC RBC Hgb Hct MCV MCH MCHC RDW Plt Count MPV Neut % (Auto) Lymph % (Auto) [place] % (Auto) Eos % (Auto) Baso % (Auto) Neut # Lymph # [place] # Eos # Baso # Sodium Potassium Chloride Carbon Dioxide Anion Gap BUN Creatinine Est GFR ( Amer) Est GFR (Non-Af Amer) POC Glucose (mg/dL) 155 H 142 H Random Glucose Lactic Acid 2.4 H Calcium Phosphorus Magnesium Total Bilirubin AST ALT Alkaline Phosphatase Total Protein Albumin Globulin Albumin/Globulin Ratio 03/22/17 03/23/17 03/23/17 21:03 06:18 06:47 WBC 8.8 RBC 3.59 L Hgb 9.4 L Hct 29.1 L MCV 81.1 MCH 26.1 L MCHC 32.1 L RDW 15.8 H Plt Count 437 H MPV 7.9 Neut % (Auto) 60.4 Lymph % (Auto) 24.2 [place] % (Auto) 13.0 H Eos % (Auto) 1.7 Baso % (Auto) 0.7 Neut # 5.3 Lymph # 2.1 [place] # 1.1 H Eos # 0.1 Baso # 0.1 Sodium Potassium Chloride Carbon Dioxide Anion Gap BUN Creatinine Est GFR ( Amer) Est GFR (Non-Af Amer) POC Glucose (mg/dL) 204 H 121 H Random Glucose Lactic Acid Calcium Phosphorus Magnesium Total Bilirubin AST ALT Alkaline Phosphatase Total Protein Albumin Globulin Albumin/Globulin Ratio 03/23/17 06:47 WBC RBC Hgb Hct MCV MCH MCHC RDW Plt Count MPV Neut % (Auto) Lymph % (Auto) [place] % (Auto) Eos % (Auto) Baso % (Auto) Neut # Lymph # [place] # Eos # Baso # Sodium 139 Potassium 3.6 Chloride 112 H Carbon Dioxide 20 L Anion Gap 11 BUN 11 Creatinine 0.8 Est GFR ( Amer) > 60 Est GFR (Non-Af Amer) > 60 POC Glucose (mg/dL) Random Glucose 121 H Lactic Acid Calcium 8.1 L Phosphorus 2.4 L Magnesium 1.7 Total Bilirubin 0.2 AST 25 ALT 35 Alkaline Phosphatase 81 Total Protein 5.7 L Albumin 2.8 L Globulin 3.0 Albumin/Globulin Ratio 0.9 L Assessment & Plan - Assessment and Plan (Free Text) Assessment: Imp: UTI Bacteremia Bilat hydronephrosis Pelvic prolapse Bilat ureteral stents in place full note to be dictated - Date & Time Date: 03/23/17 Time: 11:36
--- NOTE | 2017-03-23 13:54 | CP.PCM.PN ---
<Alonso Anand S - Last Filed: 03/23/17 14:53> Subjective - Date & Time of Evaluation Date of Evaluation: 03/23/17 Time of Evaluation: 08:50 - Subjective Subjective: Medicine progress note for Dr. Chin Patient seen and examined at bedside. Patient complains of continued dysuria and worsening urinary frequency. Patient also complaining of right leg pain worse in the heels. Objective - Vital Signs/Intake and Output Vital Signs (last 24 hours): Temp Pulse Resp BP Pulse Ox 98.3 F 101 H 20 106/58 L 96 03/23/17 07:39 03/23/17 10:44 03/23/17 07:39 03/23/17 10:48 03/23/17 07:39 Intake and Output: 03/23/17 03/23/17 06:59 18:59 Intake Total 750 Output Total 3 Balance 747 - Medications Medications: Current Medications Dextrose (Dextrose 50% Inj) 0 ml IVP .STAT PRN; Protocol PRN Reason: Hypoglycemia Protocol Dextrose (Glutose 15) 0 gm PO .ONCE PRN; Protocol PRN Reason: Hypoglycemia Protocol Docusate Sodium (Colace) 100 mg PO TID [facility] Last Admin: 03/23/17 13:35 Dose: 100 mg Enalapril Maleate (Vasotec) 5 mg PO DAILY [facility] Last Admin: 03/23/17 10:48 Dose: 5 mg Ferrous Sulfate (Feosol) 325 mg PO BID [facility] Last Admin: 03/23/17 10:48 Dose: 325 mg Gabapentin (Neurontin) 100 mg PO HS [facility] Last Admin: 03/22/17 21:51 Dose: 100 mg Glucagon (Glucagen Diagnostic Kit) 0 mg IM .STAT PRN; Protocol PRN Reason: Hypoglycemia Protocol Heparin Sodium (Porcine) (Heparin) 5,000 units SC Q8 [facility] Last Admin: 03/23/17 13:35 Dose: 5,000 units Sodium Chloride (Sodium Chloride 0.9%) 1,000 mls @ 75 mls/hr IV .[id number] [facility] Last Admin: 03/23/17 02:00 Dose: 75 mls/hr Dextrose (Dextrose 5% In Water 1000 Ml) 1,000 mls @ 0 mls/hr IV .Q0M PRN; Protocol; Per Protocol PRN Reason: Hypoglycemia Protocol Meropenem 500 mg/ Sodium (Chloride) 100 mls @ 100 mls/hr IVPB Q8 [facility] Insulin Human Regular (Novolin R) 0 unit SC ACHS [facility] PRN Reason: Protocol Last Admin: 03/23/17 12:56 Dose: 1 unit Pantoprazole Sodium (Protonix Inj) 40 mg IVP DAILY [facility] Last Admin: 03/23/17 10:48 Dose: 40 mg - Labs Labs: 03/23/17 06:47 03/23/17 06:47 - Constitutional Appears: No Acute Distress - Head Exam Head Exam: ATRAUMATIC, NORMOCEPHALIC - Eye Exam Eye Exam: EOMI Additional comments: Irregularly shaped pupils - ENT Exam ENT Exam: Mucous Membranes Moist - Respiratory Exam Respiratory Exam: Clear to Ausculation Bilateral. absent: Rales, Rhonchi, Wheezes - Cardiovascular Exam Cardiovascular Exam: REGULAR RHYTHM, +S1, +S2 - GI/Abdominal Exam GI & Abdominal Exam: Soft, Normal Bowel Sounds. absent: Tenderness - Extremities Exam Extremities Exam: Tenderness (right heel tenderness). absent: Pedal Edema - Back Exam Back Exam: CVA tenderness (R) (mild) - Neurological Exam Neurological Exam: Alert, Awake, Oriented x3 - Psychiatric Exam Psychiatric exam: Normal Affect, Normal Mood - Skin Skin Exam: Dry, Intact, Normal Color, Warm Assessment and Plan - Assessment and Plan (Free Text) Plan: Sepsis due to UTI blood cx -gram neg rods Urine cultures-ESBL+ E.coli ID Consult: Dr. Valdez Urology Consult: Dr. Maty Aburto Lactate trend including blood gas and serum readings 3.4-->1.0-->1.4-->2.4 F/u repeat serum lactate Maxipime 1gm IVQ12H to start 03/22/17 in AM and DC'ed on 03/23/17 due to resistance NS 75cc/hr Merropenem 500 mg IV Q8 started on 03/23/17 note: Patient isn't incontinent, but tries not to go to the bathroom until she has to, and has episodes where she cannot reach the bathroom in time. Hx of b/l stent placement 02/20/1703/21 abdominal flat plate 1 view: bilateral nephroureteral stents. punctate radiopaque density/calculus adjacent to distal right ureter radioopaque density adjacent to distal right ureter (possible calcified phlebolith) F/u CT abd/pelvis w.o. contrast Urology Consult: Dr. Maty Aburto Lower extremity leg pain b/l Tibial/fibula XRAY: severe degenerative changes duplex lower extremity arteries bilaterally were negative for DVT Bilateral arterial dopplers show non-compressible vessels Anemia likely secondary to chronic disease serum iron and %saturation were low will order the rest of the anemia workup including ferritin, reticulocyte count, folate/B12 Hx T2DM Janumet, hold due to UTI, not on formulary Low dose ISS accuchek q6h Hypoglycemic Protocol Vegetarian, Low Sodium, heart healthy, Carbohydrate consistent diet Hgb A1c 5.7 Hx HTN Enlapril 5mg POQD starting 03/22/17 Hx of cystocele 03/21 OBGYN consult: Dr. Kiara Valdez for pessary placement Dr. Valdez recommends that this be done as an outpatient after resolution of UTI Hx constipation colace 100mg PO TID Hx Osteoarthritis monitor patient PT OT eval and treat, multiple falls and for SHARA Hx recent fall, hit head 03/21 CT scan w/o contrast of head no acute hemorrhage 03/22 Patient started on Heparin 5000 SC Q8H Please make note patient walks with a walker at home for the past 10 years. Patient and daughter states that her leg pain is chronic issue and has been going on for years. Patient's leg pain has been very bad for the past few months , but the past 4 days were the worst, which is why the patient came to the hospital. PT Eval and treat Prophylaxis NO SCDs due to PAD Heparin 5000 mg SC Q8 Protonix 40mg IVP QD Vegetarian, Low Sodium, heart healthy, Carbohydrate consistent diet Health Proxy Patient's daughter: Jamila [phone] PT Eval and treat Case DW Dr. Giuseppe Anand PGY-1 <Aleksandra Chin V - Last Filed: 03/23/17 17:24> Objective - Vital Signs/Intake and Output Vital Signs (last 24 hours): Temp Pulse Resp BP Pulse Ox 98.3 F 97 H 20 106/58 L 96 03/23/17 07:39 03/23/17 12:00 03/23/17 07:39 03/23/17 10:48 03/23/17 07:39 Intake and Output: 03/23/17 03/23/17 06:59 18:59 Intake Total 750 1025 Output Total 3 3 Balance 747 1022 - Medications Medications: Current Medications Dextrose (Dextrose 50% Inj) 0 ml IVP .STAT PRN; Protocol PRN Reason: Hypoglycemia Protocol Dextrose (Glutose 15) 0 gm PO .ONCE PRN; Protocol PRN Reason: Hypoglycemia Protocol Docusate Sodium (Colace) 100 mg PO TID [facility] Last Admin: 03/23/17 13:35 Dose: 100 mg Enalapril Maleate (Vasotec) 5 mg PO DAILY [facility] Last Admin: 03/23/17 10:48 Dose: 5 mg Ferrous Sulfate (Feosol) 325 mg PO BID [facility] Last Admin: 03/23/17 10:48 Dose: 325 mg Gabapentin (Neurontin) 100 mg PO HS [facility] Last Admin: 03/22/17 21:51 Dose: 100 mg Glucagon (Glucagen Diagnostic Kit) 0 mg IM .STAT PRN; Protocol PRN Reason: Hypoglycemia Protocol Heparin Sodium (Porcine) (Heparin) 5,000 units SC Q8 [facility] Last Admin: 03/23/17 13:35 Dose: 5,000 units Sodium Chloride (Sodium Chloride 0.9%) 1,000 mls @ 75 mls/hr IV .[id number] [facility] Last Admin: 03/23/17 09:30 Dose: Not Given Dextrose (Dextrose 5% In Water 1000 Ml) 1,000 mls @ 0 mls/hr IV .Q0M PRN; Protocol; Per Protocol PRN Reason: Hypoglycemia Protocol Imipenem/Cilastatin Sodium 500 (mg/ Dextrose) 100 mls @ 100 mls/hr IVPB Q8 [facility] Insulin Human Regular (Novolin R) 0 unit SC ACHS [facility] PRN Reason: Protocol Last Admin: 03/23/17 12:56 Dose: 1 unit Pantoprazole Sodium (Protonix Inj) 40 mg IVP DAILY [facility] Last Admin: 03/23/17 10:48 Dose: 40 mg - Labs Labs: 03/23/17 06:47 03/23/17 06:47 Attending/Attestation - Attestation I have personally seen and examined this patient.: Yes I have fully participated in the care of the patient.: Yes I have reviewed all pertinent clinical information, including history, physical exam and plan: Yes Notes (Text): Patient seen, examined, and case discussed with day-time resident. Patient seen this morning, Assistance in translation provided by Tonya Del Rio and Paula Kidd, natural Ana and Gujarati speakers. Patient seen working with PT/OT at bedside. Per translation, denies fever, denies chills, denies chest pain, denies cough, denies shortness of breathe, reports urinary frequency and urinary incontinence and leg pains in the calves. Patient's urine culture shows ESBL, order for contact isolation, IV abx changed to Meropenem in light of culture. Patient's H/H is slowing downtrending. Patient has seen Dr Bedoya in the past. Repeat blood cultures given 03/21 (1 out 2 cultures positive). Assessment/Plan 1) Sepsis secondary to urinary tract infection ESBL+ UTI Bacteremia * Infectious Disease: Dr. Valdez on board-->help appreciated * Urology Consult: Dr. Maty Aburto on board-->help appreciated * Blood culture (03/21): no growth after 24 hours * Blood culture (03/21): gram negative negro * repeat blood culture (03/22): 2 different locations, 30 minutes * Urine cultures (03/21): ESBL+ E.coli * Infectious Disease: Dr. Valdez on board-->help appreciated * Urology Consult: Dr. Maty Aburto on board-->help appreciated * Code sepsis 03/21 * Lactate trend including blood gas and serum readings 3.4-->1.0-->1.4-->2.4 * Primaxin 500mg IVPB Q8H (active since 03/23/17) * Florastor 250mg PO BID * Ob-Disability Representative (Dr. Huong Valdez)-->outpatient for pessary placement when urinary tract infection resolved * Pending CT Abdomen/Pelvis w/o po and IV contrast * Abdominal Xray (03/21/17): b/l nephroureteral stents in place. Punctate radiopaque density/calculus adjacent to the distal right ureter. Represent calcified phleobolith 2) Hx of b/l stent placement 02/20/17 * Infectious Disease: Dr. Valdez on board-->help appreciated * Urology Consult: Dr. Maty Aburto on board-->help appreciated * 03/21 abdominal flat plate 1 view: bilateral nephroureteral stents. punctate radiopaque density/calculus adjacent to distal right ureter and radioopaque density adjacent to distal right ureter (possible calcified phlebolith) 3) Lower extremity leg pain b/l * Tibial/fibula XRAY (03/21/17): severe degenerative changes * duplex lower extremity (03/21) arteries bilaterally were negative for DVT * Bilateral arterial dopplers (1217) show non-compressible vessels 4) Anemia * likely secondary to chronic disease * Hematology-oncology consult: Dr. Bedoya-->f/u recommendations * Low iron <10 * TIBC: 252 * percent iron saturation <4.0 * will order the rest of the anemia workup including ferritin, reticulocyte count, folate/B12 * Fe 5) Diabetes type II * Controlled hgba1c: 5.7 * Low consistent carb, heart healthy, 2gm Na, 2gm K, 2 gram Na, Vegan/no meat/ dairy/egg * Janumet, hold due to UTI, not on formulary * Hypoglycemic protocol * Enalapril 5mg Po daily * Low dose RISS * Accuchecks QAC and HS * gabapentin 100mg POHS 6) Hypertension * Enalapril 5mg PO once daily * NS 75 cc/hr 7) Hx of cystocele * 03/21 OBGYN consult: Dr. Kiara Valdez for pessary placement * Dr. Huong Valdez, OBGYn recommends that this be done as an outpatient after resolution of UTI 8) Hx constipation * Colace 100mg PO TID * Monitor for bowel movement 9) Hx Osteoarthritis * monitor patient * PT OT eval and treat, multiple falls and for SHARA 10) Hx recent fall, hit head * 03/21 CT scan w/o contrast of head no acute hemorrhage * 03/22 Patient started on Heparin 5000 SC Q8H * Please make note patient walks with a walker at home for the past 10 years. Patient and daughter states that her leg pain is chronic issue and has been going on for years. Patient's leg pain has been very bad for the past few months , but the past 4 days were the worst, which is why the patient came to the hospital. * PT Eval and treat 11) Prophylaxis * NO SCDs due to PAD * Heparin 5000 mg SC Q8H * Protonix 40mg IVP QD * Vegetarian, Low Sodium, heart healthy, Carbohydrate consistent diet * Health Proxy Patient's daughter: Jamila [phone] * PT Eval and treat: subacute rehab * Occupational eval: subacute rehab Disposition: Patient's urine culture reveal ESBL+ UTI. Will need to be on contact. IV abx changed to today, Will received 1st dose of Primaxin tonight. Patient's blood cultures repeated given possible bacteremia given 03/21 blood cultures. PT and OT have recommended subacute rehab evaluation.
[2017-03-23] MEDS ORDERED: Meropenem 500 MG in Sodium Chloride 0.9% 100 ML IVPB SCH (14:00)
[2017-03-23] MEDS: Saccharomyces Boulardi 250 mg Cap PO SCH (17:53)
[2017-03-23] MEDS: Imipenem/Cilastatin 500 MG in Dextrose 5% In Water 100 ML IVPB SCH (21:58)
[2017-03-24] MEDS: Sodium Chloride 0.9% 1,000 ML IV SCH ×2 (05:50→11:22)
[2017-03-24] MEDS: Imipenem/Cilastatin 500 MG in Dextrose 5% In Water 100 ML IVPB SCH (05:51)
[2017-03-24 06:41] LABS: BASO # 0.1 K/uL (0.0-0.2); EOS # 0.3 K/uL (0.0-0.7); EOS % 3.2 % (0.0-4.0); HEMATOCRIT 27.4 % (34.0-47.0); LYMPH # 2.1 K/uL (1.0-4.3); LYMPH % 22.5 % (20.0-40.0); MEAN CELL VOLUME 80.2 fL (81.0-99.0); MEAN CORPUSCULAR HEMOGLOBIN 26.8 pg (27.0-31.0); MEAN CORPUSCULAR HGB CONC 33.4 g/dL (33.0-37.0); MEAN PLATELET VOLUME 7.7 fL (7.2-11.7); MONO % 10.5 % (0.0-10.0); RED CELL DISTRIBUTION WIDTH 15.9 % (11.5-14.5); WHITE BLOOD COUNT 9.2 K/uL (4.8-10.8)
[2017-03-24 06:55] LABS: ALB/GLOB RATIO 0.9 (1.0-2.1); ALKALINE PHOSPHATASE 79 U/L (38-126); ALT/SGPT 22 U/L (9-52); AST/SGOT 25 U/L (14-36); BILIRUBIN,TOTAL 0.2 mg/dL (0.2-1.3); BLOOD UREA NITROGEN 10 mg/dL (7-17); CALCIUM 8.1 mg/dl (8.6-10.4); CARBON DIOXIDE 21 mmol/L (22-30); CHLORIDE 110 mmol/L (98-107); GFR AFRICAN-AMERICAN > 60; GLUCOSE,RANDOM 125 mg/dL (65-105); MAGNESIUM 1.5 mg/dL (1.6-2.3); PHOSPHOROUS 2.7 mg/dL (2.5-4.5); POTASSIUM 3.6 mmol/L (3.6-5.2); SODIUM 136 mmol/L (132-148); TOTAL PROTEIN 5.7 g/dL (6.3-8.3)
--- NOTE | 2017-03-24 07:01 | CP.PCM.PN ---
<Alonso Anand - Last Filed: 03/24/17 15:44> Subjective - Date & Time of Evaluation Date of Evaluation: 03/24/17 Time of Evaluation: 07:20 - Subjective Subjective: Medicine note for Dr. Chin Patient seen and examined at bedside. Patient reports no change in her urinary symptoms at this time. Patient states that she otherwise feels well and would like to be sent home on an oral antibiotic. Objective - Vital Signs/Intake and Output Vital Signs (last 24 hours): Temp Pulse Resp BP Pulse Ox 97.8 F 94 H 20 134/72 100 03/23/17 23:00 03/24/17 04:00 03/23/17 17:13 03/23/17 23:00 03/23/17 23:00 Intake and Output: 03/23/17 03/24/17 18:59 06:59 Intake Total 1025 750 Output Total 3 Balance 1022 750 - Medications Medications: Current Medications Dextrose (Dextrose 50% Inj) 0 ml IVP .STAT PRN; Protocol PRN Reason: Hypoglycemia Protocol Dextrose (Glutose 15) 0 gm PO .ONCE PRN; Protocol PRN Reason: Hypoglycemia Protocol Docusate Sodium (Colace) 100 mg PO TID [facility] Last Admin: 03/23/17 17:53 Dose: 100 mg Enalapril Maleate (Vasotec) 5 mg PO DAILY [facility] Last Admin: 03/23/17 10:48 Dose: 5 mg Gabapentin (Neurontin) 100 mg PO HS [facility] Last Admin: 03/23/17 21:52 Dose: 100 mg Glucagon (Glucagen Diagnostic Kit) 0 mg IM .STAT PRN; Protocol PRN Reason: Hypoglycemia Protocol Heparin Sodium (Porcine) (Heparin) 5,000 units SC Q8 [facility] Last Admin: 03/24/17 05:50 Dose: 5,000 units Sodium Chloride (Sodium Chloride 0.9%) 1,000 mls @ 75 mls/hr IV .[id number] [facility] Last Admin: 03/24/17 05:50 Dose: 75 mls/hr Dextrose (Dextrose 5% In Water 1000 Ml) 1,000 mls @ 0 mls/hr IV .Q0M PRN; Protocol; Per Protocol PRN Reason: Hypoglycemia Protocol Imipenem/Cilastatin Sodium 500 (mg/ Dextrose) 100 mls @ 100 mls/hr IVPB Q8 [facility] Last Admin: 03/24/17 05:51 Dose: 100 mls/hr Insulin Human Regular (Novolin R) 0 unit SC ACHS [facility] PRN Reason: Protocol Last Admin: 03/23/17 21:53 Dose: Not Given Pantoprazole Sodium (Protonix Inj) 40 mg IVP DAILY [facility] Last Admin: 03/23/17 10:48 Dose: 40 mg Saccharomyces Boulardii (Florastor) 250 mg PO BID [facility] Last Admin: 03/23/17 17:53 Dose: 250 mg - Labs Labs: 03/24/17 06:23 03/24/17 06:23 - Constitutional Appears: No Acute Distress - Head Exam Head Exam: ATRAUMATIC, NORMOCEPHALIC - Eye Exam Eye Exam: EOMI Additional comments: irregularly shaped pupils - ENT Exam ENT Exam: Mucous Membranes Moist - Respiratory Exam Respiratory Exam: Clear to Ausculation Bilateral. absent: Rales, Rhonchi, Wheezes - Cardiovascular Exam Cardiovascular Exam: REGULAR RHYTHM, +S1, +S2 - GI/Abdominal Exam GI & Abdominal Exam: Soft, Normal Bowel Sounds. absent: Guarding, Tenderness - Extremities Exam Extremities Exam: Tenderness (right foot tenderness). absent: Pedal Edema - Neurological Exam Neurological Exam: Alert, Awake, Oriented x3 - Skin Skin Exam: Dry, Intact, Warm Assessment and Plan - Assessment and Plan (Free Text) Plan: Sepsis due to UTI blood cx -E. coli Urine cultures-ESBL+ E.coli ID Consult: Dr. Valdez Urology Consult: Dr. Maty Aburto Lactate trend including blood gas and serum readings 3.4-->1.0-->1.4-->2.4-->0.8 Maxipime 1gm IVQ12H to start 03/22/17 in AM and NE'ed on 03/23/17 due to resistance NS 75cc/hr Merropenem 500 mg IV Q8 started on 03/23/[address] Valdez, patient will need 2 weeks of IV antibiotics note: Patient isn't incontinent, but tries not to go to the bathroom until she has to, and has episodes where she cannot reach the bathroom in time. Hx of b/l stent placement 02/20/1703/21 abdominal flat plate 1 view: bilateral nephroureteral stents. punctate radiopaque density/calculus adjacent to distal right ureter radioopaque density adjacent to distal right ureter (possible calcified phlebolith) F/u CT abd/pelvis w.o. contrast Urology Consult: Dr. Oc Aburto Lower extremity leg pain b/l Tibial/fibula XRAY: severe degenerative changes duplex lower extremity arteries bilaterally were negative for DVT Bilateral arterial dopplers show non-compressible vessels Anemia likely secondary to chronic disease serum iron, %saturation, reticulocyte count were low Patient will need outpatient anemia follow up Dr. Capps heme/onc consulted, help appreciated Stool occult negative x1 F/u stool occult x2 Dr. Capps recommends elective colonoscopy for further assessment Hx T2DM Janumet, hold due to UTI, not on formulary Low dose ISS accuchek q6h Hypoglycemic Protocol Vegetarian, Low Sodium, heart healthy, Carbohydrate consistent diet Hgb A1c 5.7 Hx HTN Enlapril 5mg POQD starting 03/22/17 Hx of cystocele 03/21 OBGYN consult: Dr. Kiara Valdez for pessary placement Dr. Valdez recommends that this be done as an outpatient after resolution of UTI Hx constipation colace 100mg PO TID Hx Osteoarthritis monitor patient PT OT eval and treat, multiple falls and for SHARA Hx recent fall, hit head 03/21 CT scan w/o contrast of head no acute hemorrhage 03/22 Patient started on Heparin 5000 SC Q8H Please make note patient walks with a walker at home for the past 10 years. Patient and daughter states that her leg pain is chronic issue and has been going on for years. Patient's leg pain has been very bad for the past few months , but the past 4 days were the worst, which is why the patient came to the hospital. PT Eval and treat Prophylaxis NO SCDs due to PAD Heparin 5000 mg SC Q8 Protonix 40mg IVP QD Vegetarian, Low Sodium, heart healthy, Carbohydrate consistent diet Health Proxy Patient's daughter: Jamila [phone] PT Eval and treat Patient adamantly refusing PICC line and SHARA at this time. Patient requests to be discharged on an oral antibiotic despite repeated attempts at explaining that this will not be possible with her extremely resistant UTI. We will attempt to speak with her again after her daughter arrives. Case DW Dr. Giuseppe Anand <Aleksandra Chin V - Last Filed: 03/24/17 20:13> Objective - Vital Signs/Intake and Output Vital Signs (last 24 hours): Temp Pulse Resp BP Pulse Ox 98.1 F 86 20 134/70 98 03/24/17 15:42 03/24/17 16:12 03/24/17 15:42 03/24/17 15:42 03/24/17 15:42 - Medications Medications: Current Medications Dextrose (Dextrose 50% Inj) 0 ml IVP .STAT PRN; Protocol PRN Reason: Hypoglycemia Protocol Dextrose (Glutose 15) 0 gm PO .ONCE PRN; Protocol PRN Reason: Hypoglycemia Protocol Docusate Sodium (Colace) 100 mg PO TID [facility] Last Admin: 03/24/17 17:35 Dose: 100 mg Enalapril Maleate (Vasotec) 5 mg PO DAILY [facility] Last Admin: 03/24/17 10:22 Dose: 5 mg Gabapentin (Neurontin) 100 mg PO HS [facility] Last Admin: 03/23/17 21:52 Dose: 100 mg Glucagon (Glucagen Diagnostic Kit) 0 mg IM .STAT PRN; Protocol PRN Reason: Hypoglycemia Protocol Heparin Sodium (Porcine) (Heparin) 5,000 units SC Q8 [facility] Last Admin: 03/24/17 13:48 Dose: 5,000 units Imipenem/Cilastatin Sodium 500 (mg/ Dextrose) 250 mls @ 250 mls/hr IVPB Q8 [facility] Last Admin: 03/24/17 13:54 Dose: 250 mls/hr Insulin Human Regular (Novolin R) 0 unit SC ACHS [facility] PRN Reason: Protocol Last Admin: 03/24/17 17:35 Dose: Not Given Pantoprazole Sodium (Protonix Inj) 40 mg IVP DAILY [facility] Last Admin: 03/24/17 10:21 Dose: 40 mg Saccharomyces Boulardii (Florastor) 250 mg PO BID [facility] Last Admin: 03/24/17 17:35 Dose: 250 mg - Labs Labs: 03/24/17 06:23 03/24/17 06:23 Attending/Attestation - Attestation I have personally seen and examined this patient.: Yes I have fully participated in the care of the patient.: Yes I have reviewed all pertinent clinical information, including history, physical exam and plan: Yes Notes (Text): Patient seen, examined, and case discussed with day-time resident. Patient refused repeat blood work overnight. Patient seen this morning, Assistance in translation provided by Kuli Kuli, in [facility]. No family at bedside. I explained to the patient that she has urinary tract infection that requires IV abx given it is resistant to many common antibiotics with give for urinary tract infection. Patient refuses PICC lines. Patient wants to go home to take care of and son. I explained to her she is very sick lady and urinary tract infection causing sepsis (described as overwhelming the body and affecting her immune system) that she can without IV abx. Medicine team is awaiting patient's daughter who is POA. Discussed with infectious disease, Dr. Valdez who is aware of patient's desire to go home inspite of risk. Discussed with patient's PMD, Dr. Deep Colvin to keep in the loop, and agrees patient needs IV abx and to follow-up with patient's daughter. Heme-onc came and evaluated patient given anemia; recommended for GI eval and elective colonoscopy. Given patient is fighting of active infection in both blood and urine, advised outpatient follow-up once infection clears. Discussed with urology, given recommendations from [employer], to follow-up with outpatient when UTI infection clears for pessary insertion. Assessment/Plan 1) Sepsis secondary to urinary tract infection ESBL+ UTI E. Coli Bacteremia * Infectious Disease: Dr. Valdez on board-->help appreciated * Urology Consult: Dr. Maty Aburto on board-->help appreciated-->patient actually follows-up with Dr. Eun Aburto privately * Blood culture (03/21): no growth after 3 days * Blood culture (03/21): E. Coli * repeat blood culture (03/24): 2 different locations, 30 minutes-->Patient refused overnight * Reorder for tomorrow 03/25 * Urine cultures (03/21): ESBL+ E.coli * Code sepsis 03/21 * Lactate trend including blood gas and serum readings 3.4-->1.0-->1.4-->2.4--> 0.8 * Primaxin 500mg IVPB Q8H (active since 03/23/17) * Florastor 250mg PO BID * [employer] (Dr. Huong Valdez)-->outpatient for pessary placement when urinary tract infection resolved * CT Abdomen/Pelvis (03/24/17): bilateral ureteral stents. Bilateral hydronephrosis. Thick-walled under distended urinary bladder. Dependent materail is noted within the urinary bladder possibly related to blood products or debris. Soft tissue neoplasm cannot be excluded. 4mm right middle lobe pulmonary nodule. Will need follow-up * Abdominal Xray (03/21/17): b/l nephroureteral stents in place. Punctate radiopaque density/calculus adjacent to the distal right ureter. Represent calcified phleobolith 2) Hx of b/l stent placement 02/20/17 * Infectious Disease: Dr. Valdez on board-->help appreciated * Urology Consult: Dr. Maty Aburto on board-->help appreciated * 03/21 abdominal flat plate 1 view: bilateral nephroureteral stents. punctate radiopaque density/calculus adjacent to distal right ureter and radioopaque density adjacent to distal right ureter (possible calcified phlebolith) * CT Abdomen/Pelvis (03/24/17): bilateral ureteral stents. Bilateral hydronephrosis. Thick-walled under distended urinary bladder. Dependent materail is noted within the urinary bladder possibly related to blood products or debris. Soft tissue neoplasm cannot be excluded. 4mm right middle lobe pulmonary nodule. Will need follow-up 3) Lower extremity leg pain b/l * Tibial/fibula XRAY (03/21/17): severe degenerative changes * duplex lower extremity (03/21) arteries bilaterally were negative for DVT * Bilateral arterial dopplers (1217) show non-compressible vessels 4) Anemia * likely secondary to chronic disease * Hematology-oncology consult: Dr. Bedoya-->help appreciated * Low iron <10 * TIBC: 252 * percent iron saturation <4.0 * Reticulocyte count is low. * B12 >1000 * Folate >20 * occult blood: negative 5) Diabetes type II * Controlled hgba1c: 5.7 * Low consistent carb, heart healthy, 2gm Na, 2gm K, 2 gram Na, Vegan/no meat/ dairy/egg * Janumet, hold due to UTI, not on formulary * Hypoglycemic protocol * Enalapril 5mg Po daily * Low dose RISS * Accuchecks QAC and HS * gabapentin 100mg POHS 6) Hypertension * Enalapril 5mg PO once daily * NS 75 cc/hr 7) Hx of cystocele * 03/21 OBGYN consult: Dr. Kiara Valdez for pessary placement * Dr. Huong Valdez, OBGYn recommends that this be done as an outpatient after resolution of UTI 8) Hx constipation * Colace 100mg PO TID * Monitor for bowel movement 9) Hx Osteoarthritis * monitor patient * PT OT eval and treat, multiple falls and for SHARA 10) Hx recent fall, hit head * 03/21 CT scan w/o contrast of head no acute hemorrhage * 03/22 Patient started on Heparin 5000 SC Q8H * Please make note patient walks with a walker at home for the past 10 years. Patient and daughter states that her leg pain is chronic issue and has been going on for years. Patient's leg pain has been very bad for the past few months , but the past 4 days were the worst, which is why the patient came to the hospital. * PT Eval and treat 11) Prophylaxis * NO SCDs due to PAD * Heparin 5000 mg SC Q8H * Protonix 40mg IVP QD * Vegetarian, Low Sodium, heart healthy, Carbohydrate consistent diet * Health Proxy Patient's daughter: Jamila [phone] * PT Eval and treat: subacute rehab * Occupational eval: subacute rehab Disposition: Patient's urine culture reveal ESBL+ UTI. Patient refuses SHARA/PICC line/IV Abx. Will need to follow-up with daughter who is POA given patient will need fdc IV abx for ESBL UTI and E.Coli in blood.
--- NOTE | 2017-03-24 07:15 | CP.PCM.CON ---
History of Present Illness - History of Present Illness History of Present Illness: patient seen. full consult will be dictated. Anemia - etiology to be determined. R/O blood loss suggest: iron TIBC, Ferritin, B12 Folate level GI eval , elective colonoscopy Past Patient History - Past Medical History & Family History Past Medical History?: Yes - Past Social History Smoking Status: Never Smoked Chewing Tobacco Use: No Cigar Use: No Alcohol: None Drugs: Denies Home Situation {Lives}: With Family - CARDIAC Hx Hypertension: Yes - PULMONARY Hx Respiratory Disorders: Yes (ABN CHEST X RAY) - NEUROLOGICAL Hx Neurological Disorder: No - HEENT Hx HEENT Problems: Yes Hx Cataracts: Yes (BILAT IOL) - RENAL Other/Comment: HYDRONEPHROSIS - ENDOCRINE/METABOLIC Hx Endocrine Disorders: Yes Hx Diabetes Mellitus Type 2: Yes - HEMATOLOGICAL/ONCOLOGICAL Hx Blood Disorders: No - INTEGUMENTARY Hx Dermatological Problems: No - MUSCULOSKELETAL/RHEUMATOLOGICAL Hx Falls: No - GASTROINTESTINAL Hx Gastrointestinal Disorders: Yes (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) - GENITOURINARY/GYNECOLOGICAL Hx Genitourinary Disorders: Yes Hx Urinary Tract Infection: Yes - PSYCHIATRIC Hx Substance Use: No - SURGICAL HISTORY Hx Surgeries: Yes Hx Breast Biopsy: Yes (LEFT) Hx Cataract Extraction: Yes (BILAT IOL) Other/Comment: Kidney stent - ANESTHESIA Hx Anesthesia: Yes Hx Anesthesia Reactions: No Hx Malignant Hyperthermia: No Meds Allergies/Adverse Reactions: Allergies Allergy/AdvReac Type Severity Reaction Status Date / Time No Known Allergies Allergy Verified 03/21/17 10:50 - Medications Medications: Current Medications Dextrose (Dextrose 50% Inj) 0 ml IVP .STAT PRN; Protocol PRN Reason: Hypoglycemia Protocol Dextrose (Glutose 15) 0 gm PO .ONCE PRN; Protocol PRN Reason: Hypoglycemia Protocol Docusate Sodium (Colace) 100 mg PO TID [facility] Last Admin: 03/23/17 17:53 Dose: 100 mg Enalapril Maleate (Vasotec) 5 mg PO DAILY [facility] Last Admin: 03/23/17 10:48 Dose: 5 mg Gabapentin (Neurontin) 100 mg PO HS [facility] Last Admin: 03/23/17 21:52 Dose: 100 mg Glucagon (Glucagen Diagnostic Kit) 0 mg IM .STAT PRN; Protocol PRN Reason: Hypoglycemia Protocol Heparin Sodium (Porcine) (Heparin) 5,000 units SC Q8 [facility] Last Admin: 03/24/17 05:50 Dose: 5,000 units Sodium Chloride (Sodium Chloride 0.9%) 1,000 mls @ 75 mls/hr IV .[id number] [facility] Last Admin: 03/24/17 05:50 Dose: 75 mls/hr Dextrose (Dextrose 5% In Water 1000 Ml) 1,000 mls @ 0 mls/hr IV .Q0M PRN; Protocol; Per Protocol PRN Reason: Hypoglycemia Protocol Imipenem/Cilastatin Sodium 500 (mg/ Dextrose) 100 mls @ 100 mls/hr IVPB Q8 [facility] Last Admin: 03/24/17 05:51 Dose: 100 mls/hr Insulin Human Regular (Novolin R) 0 unit SC ACHS [facility] PRN Reason: Protocol Last Admin: 03/23/17 21:53 Dose: Not Given Pantoprazole Sodium (Protonix Inj) 40 mg IVP DAILY [facility] Last Admin: 03/23/17 10:48 Dose: 40 mg Saccharomyces Boulardii (Florastor) 250 mg PO BID [facility] Last Admin: 03/23/17 17:53 Dose: 250 mg Results - Vital Signs Recent Vital Signs: Last Vital Signs Temp 97.8 F 03/23/17 23:00 Pulse 94 H 03/24/17 04:00 Resp 20 03/23/17 17:13 BP 134/72 03/23/17 23:00 Pulse Ox 100 03/23/17 23:00 - Labs Result Diagrams: 03/24/17 06:23 03/24/17 06:23 Labs: Laboratory Results - last 24 hr 03/23/17 03/23/17 03/23/17 06:47 06:47 12:31 WBC 8.8 RBC 3.59 L Hgb 9.4 L Hct 29.1 L MCV 81.1 MCH 26.1 L MCHC 32.1 L RDW 15.8 H Plt Count 437 H MPV 7.9 Neut % (Auto) 60.4 Lymph % (Auto) 24.2 [place] % (Auto) 13.0 H Eos % (Auto) 1.7 Baso % (Auto) 0.7 Neut # 5.3 Lymph # 2.1 [place] # 1.1 H Eos # 0.1 Baso # 0.1 Sodium 139 Potassium 3.6 Chloride 112 H Carbon Dioxide 20 L Anion Gap 11 BUN 11 Creatinine 0.8 Est GFR ( Amer) > 60 Est GFR (Non-Af Amer) > 60 POC Glucose (mg/dL) 177 H Random Glucose 121 H Lactic Acid Calcium 8.1 L Phosphorus 2.4 L Magnesium 1.7 Total Bilirubin 0.2 AST 25 ALT 35 Alkaline Phosphatase 81 Total Protein 5.7 L Albumin 2.8 L Globulin 3.0 Albumin/Globulin Ratio 0.9 L Stool Occult Blood 03/23/17 03/23/17 03/23/17 16:51 21:39 22:24 WBC RBC Hgb Hct MCV MCH MCHC RDW Plt Count MPV Neut % (Auto) Lymph % (Auto) [place] % (Auto) Eos % (Auto) Baso % (Auto) Neut # Lymph # [place] # Eos # Baso # Sodium Potassium Chloride Carbon Dioxide Anion Gap BUN Creatinine Est GFR ( Amer) Est GFR (Non-Af Amer) POC Glucose (mg/dL) 116 H 153 H Random Glucose Lactic Acid Calcium Phosphorus Magnesium Total Bilirubin AST ALT Alkaline Phosphatase Total Protein Albumin Globulin Albumin/Globulin Ratio Stool Occult Blood Negative 03/24/17 03/24/17 03/24/17 06:17 06:23 06:23 WBC 9.2 RBC 3.42 L Hgb 9.2 L Hct 27.4 L MCV 80.2 L MCH 26.8 L MCHC 33.4 RDW 15.9 H Plt Count 475 H MPV 7.7 Neut % (Auto) 62.8 Lymph % (Auto) 22.5 [place] % (Auto) 10.5 H Eos % (Auto) 3.2 Baso % (Auto) 1.0 Neut # 5.8 Lymph # 2.1 [place] # 1.0 H Eos # 0.3 Baso # 0.1 Sodium 136 Potassium 3.6 Chloride 110 H Carbon Dioxide 21 L Anion Gap 9 L BUN 10 Creatinine 0.7 Est GFR ( Amer) > 60 Est GFR (Non-Af Amer) > 60 POC Glucose (mg/dL) 125 H Random Glucose 125 H Lactic Acid Calcium 8.1 L Phosphorus 2.7 Magnesium 1.5 L Total Bilirubin 0.2 AST 25 ALT 22 Alkaline Phosphatase 79 Total Protein 5.7 L Albumin 2.7 L Globulin 3.0 Albumin/Globulin Ratio 0.9 L Stool Occult Blood 03/24/17 06:23 WBC RBC Hgb Hct MCV MCH MCHC RDW Plt Count MPV Neut % (Auto) Lymph % (Auto) [place] % (Auto) Eos % (Auto) Baso % (Auto) Neut # Lymph # [place] # Eos # Baso # Sodium Potassium Chloride Carbon Dioxide Anion Gap BUN Creatinine Est GFR ( Amer) Est GFR (Non-Af Amer) POC Glucose (mg/dL) Random Glucose Lactic Acid 0.8 Calcium Phosphorus Magnesium Total Bilirubin AST ALT Alkaline Phosphatase Total Protein Albumin Globulin Albumin/Globulin Ratio Stool Occult Blood
[2017-03-24 07:55] LABS: FOLATE > 20.0 ng/mL
[2017-03-24 07:56] LABS: RETIC% 0.3 % (0.5-1.5)
[2017-03-24] MEDS: (Novolin R) Insulin Human Regular 100 units/ml vial SC SCH ×4 (08:25→23:47)
[2017-03-24] MEDS ORDERED: Magnesium Sulfate 1 gm in D5W 1 GM/100 ML BAG IVPB ONE (09:35)
[2017-03-24] MEDS: Saccharomyces Boulardi 250 mg Cap PO SCH ×2 (10:21→17:35)
--- NOTE | 2017-03-24 11:32 | CP.PCM.PN ---
Subjective - Date & Time of Evaluation Date of Evaluation: 03/24/17 Time of Evaluation: 10:00 - Subjective Subjective: grew esbl in blood / urine no available PO alternative at present needs 14 days IV Merrem or INvanz Objective - Vital Signs/Intake and Output Vital Signs (last 24 hours): Temp Pulse Resp BP Pulse Ox 97.8 F 95 H 20 111/79 100 03/23/17 23:00 03/24/17 08:00 03/23/17 17:13 03/24/17 10:22 03/23/17 23:00 Intake and Output: 03/24/17 03/24/17 06:59 18:59 Intake Total 750 Balance 750 - Medications Medications: Current Medications Dextrose (Dextrose 50% Inj) 0 ml IVP .STAT PRN; Protocol PRN Reason: Hypoglycemia Protocol Dextrose (Glutose 15) 0 gm PO .ONCE PRN; Protocol PRN Reason: Hypoglycemia Protocol Docusate Sodium (Colace) 100 mg PO TID [facility] Last Admin: 03/24/17 10:22 Dose: 100 mg Enalapril Maleate (Vasotec) 5 mg PO DAILY [facility] Last Admin: 03/24/17 10:22 Dose: 5 mg Gabapentin (Neurontin) 100 mg PO HS [facility] Last Admin: 03/23/17 21:52 Dose: 100 mg Glucagon (Glucagen Diagnostic Kit) 0 mg IM .STAT PRN; Protocol PRN Reason: Hypoglycemia Protocol Heparin Sodium (Porcine) (Heparin) 5,000 units SC Q8 [facility] Last Admin: 03/24/17 05:50 Dose: 5,000 units Sodium Chloride (Sodium Chloride 0.9%) 1,000 mls @ 75 mls/hr IV .[id number] [facility] Last Admin: 03/24/17 11:22 Dose: Not Given Dextrose (Dextrose 5% In Water 1000 Ml) 1,000 mls @ 0 mls/hr IV .Q0M PRN; Protocol; Per Protocol PRN Reason: Hypoglycemia Protocol Imipenem/Cilastatin Sodium 500 (mg/ Dextrose) 250 mls @ 250 mls/hr IVPB Q8 [facility] Insulin Human Regular (Novolin R) 0 unit SC ACHS [facility] PRN Reason: Protocol Last Admin: 03/24/17 08:25 Dose: Not Given Pantoprazole Sodium (Protonix Inj) 40 mg IVP DAILY [facility] Last Admin: 03/24/17 10:21 Dose: 40 mg Saccharomyces Boulardii (Florastor) 250 mg PO BID [facility] Last Admin: 03/24/17 10:21 Dose: 250 mg - Labs Labs: 03/24/17 06:23 03/24/17 06:23 Assessment and Plan (1) Sepsis Status: Acute (2) UTI (urinary tract infection) Status: Acute
--- NOTE | 2017-03-24 12:03 | CT ---
PROCEDURE: CT Abdomen and Pelvis without Oral or IV contrast. HISTORY: r/o nephrolithiasis COMPARISON: None available TECHNIQUE: Contiguous axial images of the abdomen and pelvis. No oral or IV contrast administered. Coronal and Sagittal reformats generated and reviewed. Radiation dose: Total exam DLP = 554.57 mGy-cm. This CT exam was performed using one or more of the following dose reduction techniques: Automated exposure control, adjustment of the mA and/or kV according to patient size, and/or use of iterative reconstruction technique. FINDINGS: There is limited evaluation of the solid organs without the administration of IV contrast. LOWER THORAX: No visible consolidation, pleural effusion, or pneumothorax. 4 mm right middle lobe pulmonary nodule (series 5, image 1). LIVER: Unremarkable unenhanced appearance. GALLBLADDER AND BILE DUCTS: Unremarkable unenhanced appearance. PANCREAS: Unremarkable unenhanced appearance. SPLEEN: Unremarkable unenhanced appearance. ADRENALS: Bilateral adrenal gland hypertrophy. KIDNEYS AND URETERS: Bilateral ureteral stents. Bilateral hydronephrosis. No large calcifications identified. BLADDER: Thick-walled under distended urinary bladder. The dependent material is noted within the urinary bladder possibly related to blood products or debris; soft tissue neoplasm cannot be excluded. REPRODUCTIVE: Uterus is present. APPENDIX: The appendix appears within normal limits of caliber. No secondary signs of acute appendicitis. BOWEL: The stomach is nondistended. Lack of oral contrast limits evaluation for bowel pathology. The bowel loops appear within normal limits of caliber without evidence of intestinal obstruction. PERITONEUM: No significant free fluid. No definite free air. LYMPH NODES: No bulky lymphadenopathy identified. VASCULATURE: No aortic aneurysm. BONES: Extensive degenerative changes. OTHER FINDINGS: None. IMPRESSION: Bilateral ureteral stents. Bilateral hydronephrosis. Thick-walled under distended urinary bladder. The dependent material is noted within the urinary bladder possibly related to blood products or debris; soft tissue neoplasm cannot be excluded. 4 mm right middle lobe pulmonary nodule; In the absence of risk factors for lung cancer, no specific imaging follow-up is required. If the patient is a smoker or has other risk factors, follow-up CT at 12 months is recommended to document stability.
[2017-03-24] MEDS: Imipenem/Cilastatin 500 MG in Dextrose 5% In Water 250 ML IVPB SCH ×2 (13:54→21:00)
--- NOTE | 2017-03-24 15:48 | VASCLAB ---
STUDY DESCRIPTION: HISTORY: PAD, leg pain bilaterally PRIORS: None. TECHNIQUE: Pulse volume recording waveforms and segmental pressures of bilateral lower extremities at multiple levels were obtained. Ankle Brachial Indices (ABIs) were calculated. Report prepared by BRISSA Morris, RVT RIGHT LOWER EXTREMITY: * Brachial artery: Pressure - 113 mmHg. * High thigh: Pressure - mmHg: Ratio - : PVR waveform - Pulsatile * Low thigh: Pressure - mmHg: Ratio - PVR waveform: Pulsatile * Calf: Pressure - 220 mmHg: Ratio - NC PVR waveform: Pulsatile * Posterior tibial Artery: Pressure - 220 mmHg: Ratio - NC PVR waveform: Pulsatile * Dorsalis pedis Artery: Pressure - 220 mmHg: Ratio - NC PVR waveform: Pulsatile * Great toe: Pressure - mmHg: Ratio - PVR waveform: Ankle brachial index (AMOS): NC LEFT LOWER EXTREMITY: * Brachial artery: Pressure - 117 mmHg. * High thigh: Pressure - mmHg: Ratio - : PVR waveform - Pulsatile * Low thigh: Pressure - mmHg: Ratio - PVR waveform: Pulsatile * Calf: Pressure - 220 mmHg: Ratio - NC PVR waveform: Pulsatile * Posterior tibial Artery: Pressure - 133 mmHg: Ratio - 1.14 PVR waveform: Pulsatile * Dorsalis pedis Artery: Pressure - 220 mmHg: Ratio - NC PVR waveform: Pulsatile * Great toe: Pressure - mmHg: Ratio - PVR waveform: Ankle brachial index (AMOS): NC OTHER FINDINGS: Right: Left: IMPRESSION: Right: The ankle pressure index of the right lower extremity is non-diagnostic due to possible arterial wall calcifications. Left: The ankle pressure index of the left lower extremity is non-diagnostic due to possible arterial wall calcifications.
[2017-03-24 20:42] LABS: RBC URINE 252 /hpf (0-3); URINE BACTERIA MANY (<OCC); URINE BILIRUBIN NEGATIVE (NEGATIVE); URINE COLOR Red (YELLOW); URINE GLUCOSE (UA) 1+ mg/dL (Normal); URINE KETONE NEGATIVE (NEGATIVE); URINE PROTEIN 2+ mg/dL (NEGATIVE); URINE UROBILINOGEN NORMAL mg/dL (0.2-1.0); WBC CLUMPS MOD /hpf; WBC URINE 512 /hpf (0-5)
[2017-03-24 20:44] LABS: URINE BLOOD 3+ (NEGATIVE); URINE LEUKOCYTE ESTERASE 3+ Leu/uL (Negative)
[2017-03-25] MEDS: Imipenem/Cilastatin 500 MG in Dextrose 5% In Water 250 ML IVPB SCH ×2 (06:27→13:28)
[2017-03-25 06:50] LABS: BASO % 0.4 % (0.0-2.0); EOS # 0.4 K/uL (0.0-0.7); EOS % 3.7 % (0.0-4.0); HEMATOCRIT 30.4 % (34.0-47.0); LYMPH # 2.2 K/uL (1.0-4.3); LYMPH % 21.5 % (20.0-40.0); MEAN CELL VOLUME 80.4 fL (81.0-99.0); MEAN CORPUSCULAR HEMOGLOBIN 26.5 pg (27.0-31.0); MEAN CORPUSCULAR HGB CONC 32.9 g/dL (33.0-37.0); MEAN PLATELET VOLUME 7.8 fL (7.2-11.7); MONO # 0.9 K/uL (0.0-0.8); MONO % 8.6 % (0.0-10.0); RED CELL DISTRIBUTION WIDTH 16.3 % (11.5-14.5); WHITE BLOOD COUNT 10.3 K/uL (4.8-10.8)
--- NOTE | 2017-03-25 07:00 | CP.PCM.PN ---
<Alonso Anand - Last Filed: 03/25/17 18:08> Subjective - Date & Time of Evaluation Date of Evaluation: 03/25/17 Time of Evaluation: 07:20 - Subjective Subjective: Medicine note for Dr. Chin Patient seen and examined at bedside. Patient reports improvement in dysuria and urinary frequency but voices frustration in the need for continued IV antibiotic therapy. Objective - Vital Signs/Intake and Output Vital Signs (last 24 hours): Temp Pulse Resp BP Pulse Ox 98.0 F 90 20 146/82 96 03/24/17 23:00 03/24/17 23:00 03/24/17 23:00 03/24/17 23:00 03/24/17 23:00 Intake and Output: 03/24/17 03/25/17 18:59 06:59 Intake Total 1350 Balance 1350 - Medications Medications: Current Medications Dextrose (Dextrose 50% Inj) 0 ml IVP .STAT PRN; Protocol PRN Reason: Hypoglycemia Protocol Dextrose (Glutose 15) 0 gm PO .ONCE PRN; Protocol PRN Reason: Hypoglycemia Protocol Docusate Sodium (Colace) 100 mg PO TID [facility] Last Admin: 03/24/17 17:35 Dose: 100 mg Enalapril Maleate (Vasotec) 5 mg PO DAILY [facility] Last Admin: 03/24/17 10:22 Dose: 5 mg Gabapentin (Neurontin) 100 mg PO HS [facility] Last Admin: 03/24/17 21:00 Dose: 100 mg Glucagon (Glucagen Diagnostic Kit) 0 mg IM .STAT PRN; Protocol PRN Reason: Hypoglycemia Protocol Imipenem/Cilastatin Sodium 500 (mg/ Dextrose) 250 mls @ 250 mls/hr IVPB Q8 [facility] Last Admin: 03/25/17 06:27 Dose: 250 mls/hr Insulin Human Regular (Novolin R) 0 unit SC ACHS [facility] PRN Reason: Protocol Last Admin: 03/24/17 23:47 Dose: Not Given Pantoprazole Sodium (Protonix Inj) 40 mg IVP DAILY [facility] Last Admin: 03/24/17 10:21 Dose: 40 mg Saccharomyces Boulardii (Florastor) 250 mg PO BID [facility] Last Admin: 03/24/17 17:35 Dose: 250 mg - Labs Labs: 03/25/17 06:33 03/24/17 06:23 - Constitutional Appears: No Acute Distress - Head Exam Head Exam: ATRAUMATIC, NORMOCEPHALIC - Eye Exam Eye Exam: EOMI, PERRL - ENT Exam ENT Exam: Mucous Membranes Moist - Respiratory Exam Respiratory Exam: Clear to Ausculation Bilateral. absent: Rales, Rhonchi, Wheezes - Cardiovascular Exam Cardiovascular Exam: REGULAR RHYTHM, +S1, +S2 - GI/Abdominal Exam GI & Abdominal Exam: Soft, Normal Bowel Sounds. absent: Tenderness - Extremities Exam Extremities Exam: Tenderness (left). absent: Pedal Edema - Back Exam Back Exam: CVA tenderness (R) - Neurological Exam Neurological Exam: Alert, Awake, Oriented x3 - Skin Skin Exam: Dry, Intact, Normal Color, Warm Assessment and Plan - Assessment and Plan (Free Text) Plan: Sepsis due to UTI blood cx -ESBL+ E. coli Urine cultures-ESBL+ E.coli ID Consult: Dr. Valdez Urology Consult: Dr. Maty Aburto Lactate trend including blood gas and serum readings 3.4-->1.0-->1.4-->2.4-->0.8 Maxipime 1gm IVQ12H to start 03/22/17 in AM and DC'ed on 03/23/17 due to resistance NS 75cc/hr Merropenem 500 mg IV Q8 started on 03/23/[address] Valdez, patient will need 2 weeks of IV antibiotics note: Patient isn't incontinent, but tries not to go to the bathroom until she has to, and has episodes where she cannot reach the bathroom in time. Hx of b/l stent placement 02/20/1703/21 abdominal flat plate 1 view: bilateral nephroureteral stents. punctate radiopaque density/calculus adjacent to distal right ureter radioopaque density adjacent to distal right ureter (possible calcified phlebolith) F/u CT abd/pelvis w.o. contrast Urology Consult: Dr. Oc Aburto Lower extremity leg pain b/l Tibial/fibula XRAY: severe degenerative changes duplex lower extremity arteries bilaterally were negative for DVT Bilateral arterial dopplers show non-compressible vessels Anemia likely secondary to chronic disease serum iron, %saturation, reticulocyte count were low Patient will need outpatient anemia follow up Dr. Capps heme/onc consulted, help appreciated Stool occult negative x1 F/u stool occult x2 Dr. Capps recommends elective colonoscopy for further assessment Hx T2DM Janumet, hold due to UTI, not on formulary Low dose ISS accuchek q6h Hypoglycemic Protocol Vegetarian, Low Sodium, heart healthy, Carbohydrate consistent diet Hgb A1c 5.7 Hx HTN Enlapril 5mg POQD starting 03/22/17 Hx of cystocele 03/21 OBGYN consult: Dr. Kiara Valdez for pessary placement Dr. Valdez recommends that this be done as an outpatient after resolution of UTI Hx constipation colace 100mg PO TID Hx Osteoarthritis monitor patient PT OT eval and treat, multiple falls and for SHARA Hx recent fall, hit head 03/21 CT scan w/o contrast of head no acute hemorrhage 03/22 Patient started on Heparin 5000 SC Q8H Please make note patient walks with a walker at home for the past 10 years. Patient and daughter states that her leg pain is chronic issue and has been going on for years. Patient's leg pain has been very bad for the past few months , but the past 4 days were the worst, which is why the patient came to the hospital. PT Eval and treat Prophylaxis NO SCDs due to PAD Heparin 5000 mg SC Q8 Protonix 40mg IVP QD Vegetarian, Low Sodium, heart healthy, Carbohydrate consistent diet Health Proxy Patient's daughter: Jamila Levin [phone] PT Eval and treat Patient is willing to undergo PICC line placement at this time. Case DW Dr. Giuseppe Anand PGY-1 <Aleksandra Chin V - Last Filed: 03/26/17 00:58> Objective - Vital Signs/Intake and Output Vital Signs (last 24 hours): Temp Pulse Resp BP Pulse Ox 98.1 F 89 20 148/79 98 03/25/17 16:00 03/25/17 16:00 03/25/17 16:00 03/25/17 16:00 03/25/17 16:00 - Medications Medications: Current Medications Dextrose (Dextrose 50% Inj) 0 ml IVP .STAT PRN; Protocol PRN Reason: Hypoglycemia Protocol Dextrose (Glutose 15) 0 gm PO .ONCE PRN; Protocol PRN Reason: Hypoglycemia Protocol Docusate Sodium (Colace) 100 mg PO TID [facility] Last Admin: 03/25/17 17:26 Dose: 100 mg Enalapril Maleate (Vasotec) 5 mg PO DAILY [facility] Last Admin: 03/25/17 09:03 Dose: 5 mg Gabapentin (Neurontin) 100 mg PO HS [facility] Last Admin: 03/25/17 21:14 Dose: 100 mg Glucagon (Glucagen Diagnostic Kit) 0 mg IM .STAT PRN; Protocol PRN Reason: Hypoglycemia Protocol Imipenem/Cilastatin Sodium 500 (mg/ Sodium Chloride) 100 mls @ 100 mls/hr IVPB Q8 [facility] Last Admin: 03/25/17 21:15 Dose: 100 mls/hr Insulin Human Regular (Novolin R) 0 unit SC ACHS [facility] PRN Reason: Protocol Last Admin: 03/25/17 21:14 Dose: Not Given Pantoprazole Sodium (Protonix Inj) 40 mg IVP DAILY [facility] Last Admin: 03/25/17 09:03 Dose: 40 mg Saccharomyces Boulardii (Florastor) 250 mg PO BID [facility] Last Admin: 03/25/17 17:26 Dose: 250 mg - Labs Labs: 03/25/17 06:33 03/25/17 06:33 Attending/Attestation - Attestation I have personally seen and examined this patient.: Yes I have fully participated in the care of the patient.: Yes I have reviewed all pertinent clinical information, including history, physical exam and plan: Yes Notes (Text): This is late computer entry for 03/25/17 Patient seen, examined, and case discussed with day-time resident. I spoke with daughter, Jamila on the phone this morning. Discussed with her that her mother does have resistant form of urinary tract infection which requires IV abx recommended for rehab for completion of IV abx. She reports she will discussed with her mother given her mother refuses SHARA/IV ABX with me this morning. This evening, resident received phone call from nursing staff that patient will allow for PICC line. IR consult placed for PICC line for IV abx. Blood and urine was repeated. Assessment/Plan 1) Sepsis secondary to urinary tract infection ESBL+ UTI E. Coli Bacteremia * Infectious Disease: Dr. Valdez on board-->help appreciated * Urology Consult: Dr. Maty Aburto on board-->help appreciated-->patient actually follows-up with Dr. Eun Aburto privately * Blood culture (03/21): no growth after 3 days * Blood culture (03/21): E. 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 Bilateral hydronephrosis. Thick-walled under distended urinary bladder. Dependent materail is noted within the urinary bladder possibly related to blood products or debris. Soft tissue neoplasm cannot be excluded. 4mm right middle lobe pulmonary nodule. Will need follow-up * Abdominal Xray (03/21/17): b/l nephroureteral stents in place. Punctate radiopaque density/calculus adjacent to the distal right ureter. Represent calcified phleobolith 2) Hx of b/l stent placement 02/20/17 * Infectious Disease: Dr. Valdez on board-->help appreciated * Urology Consult: Dr. Maty Aburto on board-->help appreciated * 03/21 abdominal flat plate 1 view: bilateral nephroureteral stents. punctate radiopaque density/calculus adjacent to distal right ureter and radioopaque density adjacent to distal right ureter (possible calcified phlebolith) * CT Abdomen/Pelvis (03/24/17): bilateral ureteral stents. Bilateral hydronephrosis. Thick-walled under distended urinary bladder. Dependent materail is noted within the urinary bladder possibly related to blood products or debris. Soft tissue neoplasm cannot be excluded. 4mm right middle lobe pulmonary nodule. Will need follow-up 3) Lower extremity leg pain b/l * Tibial/fibula XRAY (03/21/17): severe degenerative changes * duplex lower extremity (03/21) arteries bilaterally were negative for DVT * Bilateral arterial dopplers (1217) show non-compressible vessels 4) Anemia * likely secondary to chronic disease * Hematology-oncology consult: Dr. Bedoya-->help appreciated * Low iron <10 * TIBC: 252 * percent iron saturation <4.0 * Reticulocyte count is low. * B12 >1000 * Folate >20 * occult blood: negative 5) Diabetes type II * Controlled hgba1c: 5.7 * Low consistent carb, heart healthy, 2gm Na, 2gm K, 2 gram Na, Vegan/no meat/ dairy/egg * Janumet, hold due to UTI, not on formulary * Hypoglycemic protocol * Enalapril 5mg Po daily * Low dose RISS * Accuchecks QAC and HS * gabapentin 100mg POHS 6) Hypertension * Enalapril 5mg PO once daily * NS 75 cc/hr 7) Hx of cystocele * 03/21 OBGYN consult: Dr. Kiara Valdez for pessary placement * Dr. Huong Valdez, OBGYn recommends that this be done as an outpatient after resolution of UTI 8) Hx constipation * Colace 100mg PO TID * Monitor for bowel movement 9) Hx Osteoarthritis * monitor patient * PT OT eval and treat, multiple falls and for SHARA 10) Hx recent fall, hit head * 03/21 CT scan w/o contrast of head no acute hemorrhage * 03/22 Patient started on Heparin 5000 SC Q8H * Please make note patient walks with a walker at home for the past 10 years. Patient and daughter states that her leg pain is chronic issue and has been going on for years. Patient's leg pain has been very bad for the past few months , but the past 4 days were the worst, which is why the patient came to the hospital. * PT Eval and treat 11) Prophylaxis * NO SCDs due to PAD * Heparin 5000 mg SC Q8H * Protonix 40mg IVP QD * Vegetarian, Low Sodium, heart healthy, Carbohydrate consistent diet * Health Proxy Patient's daughter: Jamila [phone] * PT Eval and treat: subacute rehab * Occupational eval: subacute rehab * Health Proxy Patient's daughter: Jamila [phone] Disposition: Patient's urine culture reveal ESBL+ UTI. Patient will allow for PICC line/IV Abx following conversation with daughterJamila this morning.
[2017-03-25 07:01] LABS: ALB/GLOB RATIO 0.7 (1.0-2.1); ALKALINE PHOSPHATASE 88 U/L (38-126); ALT/SGPT 26 U/L (9-52); AST/SGOT 24 U/L (14-36); BILIRUBIN,TOTAL 0.3 mg/dL (0.2-1.3); BLOOD UREA NITROGEN 8 mg/dL (7-17); CALCIUM 8.6 mg/dl (8.6-10.4); CARBON DIOXIDE 24 mmol/L (22-30); CHLORIDE 105 mmol/L (98-107); GFR AFRICAN-AMERICAN > 60; GLUCOSE,RANDOM 121 mg/dL (65-105); MAGNESIUM 1.6 mg/dL (1.6-2.3); PHOSPHOROUS 3.2 mg/dL (2.5-4.5); POTASSIUM 3.5 mmol/L (3.6-5.2); SODIUM 136 mmol/L (132-148); TOTAL PROTEIN 7.3 g/dL (6.3-8.3)
[2017-03-25] MEDS: (Novolin R) Insulin Human Regular 100 units/ml vial SC SCH ×4 (07:29→21:14)
[2017-03-25] MEDS: Saccharomyces Boulardi 250 mg Cap PO SCH ×2 (09:02→17:26)
[2017-03-25] MEDS ORDERED: Magnesium Sulfate 1 gm in D5W 1 GM/100 ML BAG IVPB SCH (10:00)
[2017-03-25] MEDS ORDERED: Potassium Chloride 20 mEq ER Tab PO ONE (11:00)
--- NOTE | 2017-03-25 23:28 | PCM.URO ---
Urology Progress Note - General General: No Complaints, Tolerating Diet - Subjective Abdominal Pain: No Hematuria: No - Objective Lab Studies: Reviewed Lab Results Last 24 Hours: Laboratory Results - last 24 hr 03/24/17 03/25/17 03/25/17 06:23 05:58 06:33 WBC 10.3 RBC 3.79 L Hgb 10.0 L Hct 30.4 L MCV 80.4 L MCH 26.5 L MCHC 32.9 L RDW 16.3 H Plt Count 559 H MPV 7.8 Neut % (Auto) 65.8 Lymph % (Auto) 21.5 [place] % (Auto) 8.6 Eos % (Auto) 3.7 Baso % (Auto) 0.4 Neut # 6.8 Lymph # 2.2 [place] # 0.9 H Eos # 0.4 Baso # 0.0 Haptoglobin 384 H Sodium Potassium Chloride Carbon Dioxide Anion Gap BUN Creatinine Est GFR ( Amer) Est GFR (Non-Af Amer) POC Glucose (mg/dL) 116 H Random Glucose Calcium Phosphorus Magnesium Total Bilirubin AST ALT Alkaline Phosphatase Total Protein Albumin Globulin Albumin/Globulin Ratio 03/25/17 03/25/17 03/25/17 06:33 10:56 16:46 WBC RBC Hgb Hct MCV MCH MCHC RDW Plt Count MPV Neut % (Auto) Lymph % (Auto) [place] % (Auto) Eos % (Auto) Baso % (Auto) Neut # Lymph # [place] # Eos # Baso # Haptoglobin Sodium 136 Potassium 3.5 L Chloride 105 Carbon Dioxide 24 Anion Gap 11 BUN 8 Creatinine 0.7 Est GFR ( Amer) > 60 Est GFR (Non-Af Amer) > 60 POC Glucose (mg/dL) 155 H 216 H Random Glucose 121 H Calcium 8.6 Phosphorus 3.2 Magnesium 1.6 Total Bilirubin 0.3 AST 24 ALT 26 Alkaline Phosphatase 88 Total Protein 7.3 Albumin 3.0 L Globulin 4.4 H Albumin/Globulin Ratio 0.7 L 03/25/17 21:52 WBC RBC Hgb Hct MCV MCH MCHC RDW Plt Count MPV Neut % (Auto) Lymph % (Auto) [place] % (Auto) Eos % (Auto) Baso % (Auto) Neut # Lymph # [place] # Eos # Baso # Haptoglobin Sodium Potassium Chloride Carbon Dioxide Anion Gap BUN Creatinine Est GFR ( Amer) Est GFR (Non-Af Amer) POC Glucose (mg/dL) 207 H Random Glucose Calcium Phosphorus Magnesium Total Bilirubin AST ALT Alkaline Phosphatase Total Protein Albumin Globulin Albumin/Globulin Ratio Intake & Output: Intake & Output 03/25/17 03/25/17 03/26/17 06:59 18:59 06:59 Intake Total 1350 Balance 1350 Weight 100 lb Intake: IV 1200 Oral 150 Other: # Voids Urine, Voided 4 Vital Signs: Vital Signs - 24 hr 03/25/17 03/25/17 03/25/17 07:57 09:03 16:00 Temperature 97.6 F 98.1 F Pulse Rate 90 89 Respiratory 20 20 Rate Blood Pressure 141/80 140/80 148/79 O2 Sat by Pulse 98 98 Oximetry - Physical Exam Abdominal Exam: Soft, Non-Tender, Non-Distended Back: No CVA Tenderness (Pt looks better overall) - Plan Additional Information: Imp: clinically improved. UTI with bacteremia. P/rec : antibioitc rx. stents in place for hydronephrosis. repeat urine culture. Bladder scan to check post void residual. Poss need for vargas catheter - Date & Time of Note Date: 03/25/17 Time: 16:00
--- NOTE | 2017-03-26 07:00 | CP.PCM.PN ---
Subjective - Date & Time of Evaluation Date of Evaluation: 03/26/17 Time of Evaluation: 07:40 - Subjective Subjective: Medicine note for Dr. Chin Patient seen and examined at bedside. Patient states that she is not experiencing dysuria or urinary frequency at this time. Patient does not wish for PICC line placement at this time. Objective - Vital Signs/Intake and Output Vital Signs (last 24 hours): Temp Pulse Resp BP Pulse Ox 98.3 F 97 H 20 120/70 96 03/26/17 04:09 03/26/17 04:09 03/26/17 04:09 03/26/17 04:09 03/26/17 04:09 Intake and Output: 03/25/17 03/26/17 18:59 06:59 Intake Total 100 Balance 100 - Medications Medications: Current Medications Dextrose (Dextrose 50% Inj) 0 ml IVP .STAT PRN; Protocol PRN Reason: Hypoglycemia Protocol Dextrose (Glutose 15) 0 gm PO .ONCE PRN; Protocol PRN Reason: Hypoglycemia Protocol Docusate Sodium (Colace) 100 mg PO TID [facility] Last Admin: 03/25/17 17:26 Dose: 100 mg Enalapril Maleate (Vasotec) 5 mg PO DAILY [facility] Last Admin: 03/25/17 09:03 Dose: 5 mg Gabapentin (Neurontin) 100 mg PO HS [facility] Last Admin: 03/25/17 21:14 Dose: 100 mg Glucagon (Glucagen Diagnostic Kit) 0 mg IM .STAT PRN; Protocol PRN Reason: Hypoglycemia Protocol Imipenem/Cilastatin Sodium 500 (mg/ Sodium Chloride) 100 mls @ 100 mls/hr IVPB Q8 [facility] Last Admin: 03/26/17 05:20 Dose: 100 mls/hr Insulin Human Regular (Novolin R) 0 unit SC ACHS [facility] PRN Reason: Protocol Last Admin: 03/25/17 21:14 Dose: Not Given Pantoprazole Sodium (Protonix Inj) 40 mg IVP DAILY [facility] Last Admin: 03/25/17 09:03 Dose: 40 mg Saccharomyces Boulardii (Florastor) 250 mg PO BID [facility] Last Admin: 03/25/17 17:26 Dose: 250 mg - Labs Labs: 03/25/17 06:33 03/25/17 06:33 - Constitutional Appears: Other (Patient refused physical exam.) Assessment and Plan - Assessment and Plan (Free Text) Plan: Sepsis due to UTI blood cx -ESBL+ E. coli Urine cultures-ESBL+ E.coli ID Consult: Dr. Valdez Urology Consult: Dr. Maty Aburto Lactate trend including blood gas and serum readings 3.4-->1.0-->1.4-->2.4-->0.8 Maxipime 1gm IVQ12H to start 03/22/17 in AM and DC'ed on 03/23/17 due to resistance NS 75cc/hr Merropenem 500 mg IV Q8 started on 03/23/[address] Valdez, patient will need 2 weeks of IV antibiotics note: Patient isn't incontinent, but tries not to go to the bathroom until she has to, and has episodes where she cannot reach the bathroom in time. Hx of b/l stent placement 02/20/1703/21 abdominal flat plate 1 view: bilateral nephroureteral stents. punctate radiopaque density/calculus adjacent to distal right ureter radioopaque density adjacent to distal right ureter (possible calcified phlebolith) F/u CT abd/pelvis w.o. contrast Urology Consult: Dr. Oc Aburto Lower extremity leg pain b/l Tibial/fibula XRAY: severe degenerative changes duplex lower extremity arteries bilaterally were negative for DVT Bilateral arterial dopplers show non-compressible vessels Anemia likely secondary to chronic disease serum iron, %saturation, reticulocyte count were low Patient will need outpatient anemia follow up Dr. Capps heme/onc consulted, help appreciated Stool occult negative x1 F/u stool occult x2 Dr. Capps recommends elective colonoscopy for further assessment Hx T2DM Janumet, hold due to UTI, not on formulary Low dose ISS accuchek q6h Hypoglycemic Protocol Vegetarian, Low Sodium, heart healthy, Carbohydrate consistent diet Hgb A1c 5.7 Hx HTN Enlapril 5mg POQD starting 03/22/17 Hx of cystocele 03/21 OBGYN consult: Dr. Kiara Valdez for pessary placement Dr. Valdez recommends that this be done as an outpatient after resolution of UTI Hx constipation colace 100mg PO TID Hx Osteoarthritis monitor patient PT OT eval and treat, multiple falls and for SHARA Hx recent fall, hit head 03/21 CT scan w/o contrast of head no acute hemorrhage 03/22 Patient started on Heparin 5000 SC Q8H Please make note patient walks with a walker at home for the past 10 years. Patient and daughter states that her leg pain is chronic issue and has been going on for years. Patient's leg pain has been very bad for the past few months , but the past 4 days were the worst, which is why the patient came to the hospital. PT Eval and treat Prophylaxis NO SCDs due to PAD Heparin 5000 mg SC Q8 Protonix 40mg IVP QD Vegetarian, Low Sodium, heart healthy, Carbohydrate consistent diet Health Proxy Patient's daughter: Jamila [phone] PT Eval and treat
[2017-03-26] MEDS: (Novolin R) Insulin Human Regular 100 units/ml vial SC SCH ×3 (07:41→18:14)
[2017-03-26 07:58] LABS: BASO # 0.1 K/uL (0.0-0.2); BASO % 0.7 % (0.0-2.0); EOS # 0.3 K/uL (0.0-0.7); LYMPH # 2.5 K/uL (1.0-4.3); LYMPH % 22.4 % (20.0-40.0); MEAN CORPUSCULAR HEMOGLOBIN 26.9 pg (27.0-31.0); MEAN CORPUSCULAR HGB CONC 33.3 g/dL (33.0-37.0); MEAN PLATELET VOLUME 7.7 fL (7.2-11.7); MONO # 1.1 K/uL (0.0-0.8); MONO % 9.9 % (0.0-10.0); WHITE BLOOD COUNT 11.1 K/uL (4.8-10.8)
[2017-03-26 08:11] LABS: ALKALINE PHOSPHATASE 89 U/L (38-126); ALT/SGPT 24 U/L (9-52); AST/SGOT 26 U/L (14-36); BILIRUBIN,TOTAL 0.3 mg/dL (0.2-1.3); BLOOD UREA NITROGEN 9 mg/dL (7-17); CALCIUM 8.6 mg/dl (8.6-10.4); CARBON DIOXIDE 26 mmol/L (22-30); CHLORIDE 105 mmol/L (98-107); GFR AFRICAN-AMERICAN > 60; GLUCOSE,RANDOM 110 mg/dL (65-105); MAGNESIUM 1.7 mg/dL (1.6-2.3); PHOSPHOROUS 3.4 mg/dL (2.5-4.5); POTASSIUM 3.9 mmol/L (3.6-5.2); SODIUM 137 mmol/L (132-148); TOTAL PROTEIN 7.3 g/dL (6.3-8.3)
[2017-03-26 08:13] LABS: ALB/GLOB RATIO 0.6 (1.0-2.1)
[2017-03-26] MEDS: Saccharomyces Boulardi 250 mg Cap PO SCH ×2 (09:18→18:14)
[2017-03-26 09:39] LABS: RBC URINE 1322 /hpf (0-3); URINE BACTERIA OCC (<OCC); URINE BILIRUBIN NEGATIVE (NEGATIVE); URINE BLOOD 3+ (NEGATIVE); URINE COLOR Red (YELLOW); URINE GLUCOSE (UA) 1+ mg/dL (Normal); URINE KETONE TRACE mg/dL (NEGATIVE); URINE LEUKOCYTE ESTERASE 2+ Leu/uL (Negative); URINE PROTEIN 2+ mg/dL (NEGATIVE); WBC CLUMPS FEW /hpf; WBC URINE 305 /hpf (0-5)
[2017-03-26] MEDS ORDERED: Lidocaine 2% Inj (20ml) ONE (11:56)
--- NOTE | 2017-03-26 12:07 | PCM.SURG1 ---
Surgeon's Initial Post Op Note - Surgeon's Notes Surgeon: Preet Ramachandran MD Tourist Agent: NONE Type of Anesthesia: Local Pre-Operative Diagnosis: Poor venous access Operative Findings: Patent right brachial vein Post-Operative Diagnosis: Poor venous access Operation Performed: Single lumen picc placement right brachial vein, 33 cm. Tip is in the SVC. Specimen/Specimens Removed: none Estimated Blood Loss: EBL {In ML}: 2 Blood Products Given: N/A Drains Used: No Drains Post-Op Condition: Fair Date of Surgery/Procedure: 03/26/17 Time of Surgery/Procedure: 12:05
--- NOTE | 2017-03-26 14:20 | CP.PCM.DIS ---
Provider - Provider Date of Admission: 03/21/17 15:21 Attending physician: Felice Valdez MD Consults: ID-Dr. Valdez urology-Dr. Eun Aburto Television Reporter-Dr. Kiara Valdez Heme/onc: Dr. Suarez Time Spent in preparation of Discharge (in minutes): 50 Diagnosis - Discharge Diagnosis (1) Sepsis due to urinary tract infection Status: Acute (2) Anemia Status: Chronic (3) Diabetes Status: Chronic (4) Hypertension Status: Chronic (5) History of cystocele Status: Chronic (6) History of constipation Status: Chronic (7) History of osteoarthritis Status: Chronic (8) History of recent fall Status: Acute (9) Prophylactic measure Status: Acute Hospital Course - Lab Results Lab Results: Micro Results 03/25/17 06:33 Blood Blood Culture - Preliminary NO GROWTH AFTER 24 HOURS 03/25/17 06:33 Blood Blood Culture - Preliminary NO GROWTH AFTER 24 HOURS 03/24/17 19:39 Urine Urine Culture - Final Gram Negative Phil 03/21/17 18:00 Blood-Venous Blood Culture - Preliminary NO GROWTH AFTER 4 DAYS 03/21/17 18:00 Blood-Venous Blood Culture - Final Escherichia Coli 03/21/17 18:00 Blood-Venous Gram Stain - Final 03/21/17 Unknown Urine,Clean Catch Urine Culture - Final Escherichia Coli Most Recent Lab Values WBC 11.1 K/uL (4.8-10.8) H 03/26/17 07:47 RBC 3.33 Mil/uL (3.80-5.20) L 03/26/17 07:47 Hgb 9.0 g/dL (11.0-16.0) L 03/26/17 07:47 Hct 27.0 % (34.0-47.0) L 03/26/17 07:47 MCV 81.0 fL (81.0-99.0) 03/26/17 07:47 MCH 26.9 pg (27.0-31.0) L 03/26/17 07:47 MCHC 33.3 g/dL (33.0-37.0) 03/26/17 07:47 RDW 16.0 % (11.5-14.5) H 03/26/17 07:47 Plt Count 535 K/uL (130-400) H 03/26/17 07:47 MPV 7.7 fL (7.2-11.7) 03/26/17 07:47 Neut % (Auto) 64.0 % (50.0-75.0) 03/26/17 07:47 Lymph % (Auto) 22.4 % (20.0-40.0) 03/26/17 07:47 Arroyo % (Auto) 9.9 % (0.0-10.0) 03/26/17 07:47 Eos % (Auto) 3.0 % (0.0-4.0) 03/26/17 07:47 Baso % (Auto) 0.7 % (0.0-2.0) 03/26/17 07:47 Neut # 7.1 K/uL (1.8-7.0) H 03/26/17 07:47 Lymph # 2.5 K/uL (1.0-4.3) 03/26/17 07:47 Arroyo # 1.1 K/uL (0.0-0.8) H 03/26/17 07:47 Eos # 0.3 K/uL (0.0-0.7) 03/26/17 07:47 Baso # 0.1 K/uL (0.0-0.2) 03/26/17 07:47 Retic Count 0.3 % (0.5-1.5) L 03/24/17 06:23 Haptoglobin 384 mg/dL (43-212) H 03/24/17 06:23 Puncture Site Rr 03/21/17 17:24 pCO2 24 mm/Hg (35-45) L 03/21/17 17:24 pO2 112 mm/Hg (80-100) H 03/21/17 17:24 HCO3 19.6 mmol/L (21-28) L 03/21/17 17:24 ABG pH 7.44 (7.35-7.45) 03/21/17 17:24 ABG Total CO2 17.0 mmol/L (22-28) L 03/21/17 17:24 ABG O2 Saturation 100.3 % (95-98) H 03/21/17 17:24 ABG Base Excess -6.8 mmol/L (-2.0-3.0) L 03/21/17 17:24 ABG Hemoglobin 8.2 g/dL (11.7-17.4) L 03/21/17 17:24 ABG Carboxyhemoglobin 2.2 % (0.5-1.5) H 03/21/17 17:24 POC ABG HHb (Measured) -0.3 % (0.0-5.0) L 03/21/17 17:24 ABG Methemoglobin 1.1 % (0.0-3.0) 03/21/17 17:24 Kalen Test Po 03/21/17 17:24 VBG pH 7.27 (7.32-7.43) L 03/21/17 14:48 VBG pCO2 31 mmHg (40-60) L 03/21/17 14:48 VBG HCO3 14.1 mmol/L 03/21/17 14:48 VBG Total CO2 15.2 mmol/L (22-28) L 03/21/17 14:48 VBG O2 Sat (Calc) 36.4 % (40-65) L 03/21/17 14:48 VBG Base Excess -11.4 mmol/L (0.0-2.0) L 03/21/17 14:48 VBG Potassium 4.4 mmol/L (3.6-5.2) 03/21/17 14:48 A-a O2 Difference 8.0 mm/Hg 03/21/17 17:24 Respiratory Index 0.1 03/21/17 17:24 Hgb O2 Saturation 96.9 % (95.0-98.0) 03/21/17 17:24 Sodium 143.0 mmol/l (132-148) 03/21/17 14:48 Chloride 113.0 mmol/L (98-107) H 03/21/17 14:48 Glucose 132 mg/dl (65-105) H 03/21/17 14:48 Lactate 3.4 mmol/L (0.7-2.1) H 03/21/17 14:48 FiO2 21.0 % 03/21/17 17:24 Sodium 137 mmol/L (132-148) 03/26/17 07:47 Potassium 3.9 mmol/L (3.6-5.2) 03/26/17 07:47 Chloride 105 mmol/L (98-107) 03/26/17 07:47 Carbon Dioxide 26 mmol/L (22-30) 03/26/17 07:47 Anion Gap 10 (10-20) 03/26/17 07:47 BUN 9 mg/dL (7-17) 03/26/17 07:47 Creatinine 0.7 mg/dL (0.7-1.2) 03/26/17 07:47 Est GFR ( Amer) > 60 03/26/17 07:47 Est GFR (Non-Af Amer) > 60 03/26/17 07:47 POC Glucose (mg/dL) 173 mg/dL (65-110) H 03/26/17 11:20 Random Glucose 110 mg/dL (65-105) H 03/26/17 07:47 Hemoglobin A1c 5.7 % (4.2-6.5) 03/22/17 07:57 Lactic Acid 0.8 mmol/L (0.7-2.1) 03/24/17 06:23 Calcium 8.6 mg/dl (8.6-10.4) 03/26/17 07:47 Phosphorus 3.4 mg/dL (2.5-4.5) 03/26/17 07:47 Magnesium 1.7 mg/dL (1.6-2.3) 03/26/17 07:47 Iron < 10 ug/dL (37-170) L 03/22/17 07:57 TIBC 252 ug/dL (250-450) 03/22/17 07:57 % Saturation < 4.0 (20-55) L 03/22/17 07:57 Ferritin 41.2 ng/mL 03/24/17 06:23 Total Bilirubin 0.3 mg/dL (0.2-1.3) 03/26/17 07:47 AST 26 U/L (14-36) 03/26/17 07:47 ALT 24 U/L (9-52) 03/26/17 07:47 Alkaline Phosphatase 89 U/L (38-126) 03/26/17 07:47 Total Creatine Kinase 22 U/L (30-135) L 03/21/17 12:25 Total Protein 7.3 g/dL (6.3-8.3) 03/26/17 07:47 Albumin 2.9 g/dL (3.5-5.0) L 03/26/17 07:47 Globulin 4.4 gm/dL (2.2-3.9) H 03/26/17 07:47 Albumin/Globulin Ratio 0.6 (1.0-2.1) L 03/26/17 07:47 Triglycerides 117 mg/dL (0-149) 03/22/17 07:57 Cholesterol 92 mg/dL (0-199) 03/22/17 07:57 LDL Cholesterol Direct 43 mg/dL (0-129) 03/22/17 07:57 HDL Cholesterol 24 mg/dL (30-70) L 03/22/17 07:57 Vitamin B12 > 1000 pg/mL (239-931) H 03/24/17 06:23 Folate > 20.0 ng/mL 03/24/17 06:23 Procalcitonin 1.29 NG/ML (0.19-0.49) H 03/24/17 06:23 Free T4 1.82 ng/dL (0.78-2.19) 03/22/17 07:57 TSH 3rd Generation 0.94 mIU/L (0.46-4.68) 03/22/17 07:57 Venous Blood Potassium 4.4 mmol/L (3.6-5.2) 03/21/17 14:48 Urine Color Red (YELLOW) 03/26/17 09:10 Urine Clarity Hazy (Clear) 03/26/17 09:10 Urine pH 6.0 (5.0-8.0) 03/26/17 09:10 Ur Specific [place] 1.008 (1.003-1.030) 03/26/17 09:10 Urine Protein 2+ mg/dL (NEGATIVE) H 03/26/17 09:10 Urine Glucose (UA) 1+ mg/dL (Normal) 03/26/17 09:10 Urine Ketones Trace mg/dL (NEGATIVE) 03/26/17 09:10 Urine Blood 3+ (NEGATIVE) H 03/26/17 09:10 Urine Nitrate Negative (NEGATIVE) 03/26/17 09:10 Urine Bilirubin Negative (NEGATIVE) 03/26/17 09:10 Urine Urobilinogen 2.0 mg/dL (0.2-1.0) H 03/26/17 09:10 Ur Leukocyte Esterase 2+ Jonn/uL (Negative) H 03/26/17 09:10 Urine WBC (Auto) 305 /hpf (0-5) H 03/26/17 09:10 Urine RBC (Auto) 1322 /hpf (0-3) H 03/26/17 09:10 Urine WBC Clumps (Auto) Few /hpf (NONE) H 03/26/17 09:10 Urine Bacteria Occ (<OCC) H 03/26/17 09:10 Urine Yeast (Budding) Few /hpf (NEGATIVE) H 03/26/17 09:10 Stool Occult Blood Negative (NEGATIVE) 03/23/17 22:24 - Hospital Course Hospital Course: Initial Note: "Patient has been having leg pain for past five days. Patient does not walk from bed to bathroom this week because of the pain. Patient's daughter states that patient usually walks from bathroom to bed, but not more than that. Patient 's daughter states patient has been having a urine infection since September and has been constantly on antibiotics. Patient's daughter states for a week now, the patient has had pain on bottom of left foot that travels up to her calves. Upon demonstration of the pain with light touch, the daughter which produced a painful response from the patient. Patient's daughter states that there is increased frequency and burning with urination. Patient noted for a week, along with the leg pain, patient does not get up because of the pain and urinates more in the bed than before. Patient used to wake up multiple times in the night because of the urge to urinate. Patient sees Dr. Aburto who suggested seeing Dr. Huong Valdez (OBGYN) for pessary insertion. Patient has a PMH of DM, HTN, and cystocele. Patient states she wipes from "back to front." Proper method to wipe after urination is from front to back. Patient is now aware of another way to help decrease risk of UTI. code sepsis was called in the ED prior to admission interview: Patient had tachycardia, and lactate 3.4" Hospital Course: Patient admitted with sepsis secondary to UTI. Elevated lactate on admission, code sepsis was called. Initial lactate has since downtrended. Patient initially started on Cefepime for her recurrent UTI secondary to cystocele which was then switched to Merrem when the urine cultures showed ESBL + E.coli. Merrem was quickly changed to Primaxin given the shortage in the hospital. Blood cultures have also grown ESBL+ E. coli. Patient has been receiving Primaxin 500 mg IV Q8 since 03/23/17. Per ID Dr. Valdez, patient will need 2 weeks of IV antibiotics. The necessity of PICC line placement and SHARA were explained to the patient but she initially refused. Patient's daughter Jamila was able to convince her to accept the treatment. PICC line was placed 03/26/17 and patient discharged to [facility] for continuation of her current IV antibiotics with last dose on April 06, 2017. Per Television Reporter Dr. Vadlez, in order to prevent recurrent UTI, she recommends pessary placement as an outpatient after current UTI resolves. Patient will need to follow up the result of the CT abdomen/pelvis with her PMD Dr. Colvin: * CT Abdomen/Pelvis (03/24/17): bilateral ureteral stents. Bilateral hydronephrosis. Thick-walled under distended urinary bladder. Dependent materail is noted within the urinary bladder possibly related to blood products or debris. Soft tissue neoplasm cannot be excluded. 4mm right middle lobe pulmonary nodule. Will need follow-up This is a summary of the hospital course. For more information, please refer to the medical records. Discharge Exam - Additional Findings Additional findings: Patient refused physical exam Discharge Plan - Follow Up Plan Condition: STABLE Disposition: NURSING FACILITY MEDICAID CERT Instructions: Urinary Tract Infection in Women (DC), Heart Healthy Diet (DC), Sepsis (GEN) Additional Instructions: Please continue the Primaxin 500 mg IV every 8 hours. It is necessary for two total weeks of treatment. The last dose will be the evening of April 06, 2017. Please hold the patient's home [place] until the infection clears. Use an insulin sliding scale while she is in rehab. Please get weekly CBC and CMP while in rehab. There is no need to repeat cultures as long as the patient is asymptomatic. Once the patient is discharged from rehab, please have her follow up with her primary Dr. Colvin as well as Dr. Kiara Valdez for pessary placement to prevent recurrent urinary tract infections. If there are any new or worsening symptoms, please return to the emergency room. Referrals: Anthony Colvin MD [Staff Provider] - Kiara Valdez MD [Staff Provider] - Eun Aburto MD [Staff Provider] -
[2017-03-26 16:53] VITALS: BP 132/81; PULSE 96; RESP 20; TEMP 98.1; O2SAT 96
[2017-03-27] MEDS ORDERED: Pantoprazole 40 mg EC Tab PO SCH (10:00)
== END 2017-03-26 18:57 | DRG 872 ==
LOC: C.ER 10:45 → C.9E 15:21 → C.6T 16:01
PROVIDERS: ADMIT Family Medicine; ATTEND Family Medicine
PROC: 02HV33Z Insertion of Infusion Device into Superior Vena Cava, Percutaneous Approach (ICD-10-PCS; principal; 2017-03-26)
DX: A41.50 Gram-negative sepsis, unspecified (principal); N39.0 Urinary tract infection, site not specified; N13.30 Unspecified hydronephrosis; D63.8 Anemia in other chronic diseases classified elsewhere; E11.9 Type 2 diabetes mellitus without complications; B96.20 Unspecified Escherichia coli [E. coli] as the cause of diseases classified elsewhere; I10 Essential (primary) hypertension; I87.8 Other specified disorders of veins; K21.9 Gastro-esophageal reflux disease without esophagitis; M19.041 Primary osteoarthritis, right hand; M19.042 Primary osteoarthritis, left hand; N81.10 Cystocele, unspecified; N90.3 Dysplasia of vulva, unspecified; R29.6 Repeated falls; Z79.899 Other long term (current) drug therapy; Z87.440 Personal history of urinary (tract) infections

== ENCOUNTER 2017-04-27 06:39 | Day surgery (SDC) | payer MEDICARE ==
[2017-04-22 13:41] VITALS: BMI 19.5
[2017-04-27] MEDS ORDERED: Lactated Ringer's 1,000 ML IV ONE ×2 (07:51)
[2017-04-27] MEDS: cefTRIAXone 1 gm 1 GM/100 ML BAG IVPB ONE ×2 (07:51→08:00)
[2017-04-27] MEDS ORDERED: Midazolam 2 MG/2 ML VIAL ONE (08:10)
[2017-04-27] MEDS ORDERED: Propofol 10 mg/ml Inj (20 ML) ONE (08:10)
[2017-04-27] MEDS ORDERED: Lidocaine Hydrochloride 5 ML INJ ONE (08:20)
--- NOTE | 2017-04-27 08:33 | PCM.SURG1 ---
Surgeon's Initial Post Op Note - Surgeon's Notes Surgeon: Jun Aburto Automatic Clipper: none Type of Anesthesia: IV Sedation Pre-Operative Diagnosis: hydronephrosis, uti, indwelling stents Operative Findings: same. cystitis Post-Operative Diagnosis: same Operation Performed: cysto, bilat stent removal, eua Specimen/Specimens Removed: urine. stents Estimated Blood Loss: EBL {In ML}: 0 Blood Products Given: N/A Post-Op Condition: Good Date of Surgery/Procedure: 04/27/17 Time of Surgery/Procedure: 08:20
[2017-04-27 09:54] VITALS: O2SAT 100
--- NOTE | 2017-04-27 10:26 | RAD ---
HISTORY: BILAT HYDRONEPHROSIS AND UTI COMPARISON: 02/20/2017 FINDINGS: BOWEL: Normal bowel gas pattern. Bilateral ureteral stents are noted. No abnormal intra-abdominal calcifications are identified. 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 OTHER FINDINGS: None. IMPRESSION: Bilateral ureteral stents. No evidence of urinary calculus.
[2017-04-27 11:20] VITALS: BP 105/58; PULSE 87; RESP 16; TEMP 97.9
--- NOTE | 2017-04-27 19:27 | OP ---
PROCEDURE DATE: 04/27/2017 UROLOGY OPERATIVE REPORT PREOPERATIVE DIAGNOSES: 1. Urinary tract infection. 2. Hydronephrosis. 3. Pelvic prolapse. POSTOPERATIVE DIAGNOSES: 1. Urinary tract infection. 2. Hydronephrosis. 3. Pelvic prolapse. 4. Cystitis. PROCEDURE: 1. Cystoscopy. 2. Removal of bilateral ureteral stents. 3. Exam under anesthesia. OPERATING SURGEON: Eun Aburto M.D. DESCRIPTION OF PROCEDURE: Procedure as follows: The patient was placed in lithotomy position. The patient received perioperative antibiotics. The genitalia was prepped and draped in sterile fashion. A 22-Romansh cystoscope sheath was introduced with obturator. Urine drained from the bladder. There was approximately 200 to 150 mL in the bladder. The urine was cloudy. Urine was sent for bacteriologic examination. The bladder was irrigated. The visibility within the bladder was thus improved. The urethra and bladder were inspected. FINDINGS: There was noted to be a diffuse marked to severe cystitis. There was no bladder tumor. There was no bladder stone. There was marked bladder trabeculation. There was cellule formation. The ureteral stents were identified. Each ureteral stent was individually grasped with rigid grasping forceps and removed through the cystoscope sheath. The ureteral stents were both removed and intact. The bladder was reinspected and confirmed the above findings. The bladder was then drained. Cystoscope sheath removed. Fournier catheter was inserted. Bladder drainage was clear. Exam under anesthesia was performed. There was no abnormal pelvic mass. There was no adnexal mass. There was a foreshortened vagina. There was evidence of pelvic prolapse. The patient tolerated procedure without complication. Eun Aburto MD cc: Anthony Colvin M.D.
== END 2017-04-27 11:04 | disposition home or self-care (01) ==
LOC: C.SDS 06:39
PROVIDERS: ATTEND Urology
DX: N13.6 Pyonephrosis (principal); I10 Essential (primary) hypertension; E11.9 Type 2 diabetes mellitus without complications; R32 Unspecified urinary incontinence; N81.89 Other female genital prolapse; N30.90 Cystitis, unspecified without hematuria
CPT/HCPCS: 52310; 74018; 82948; 87086; J0696; J1885; J7120

== ENCOUNTER 2018-06-16 14:44 | Inpatient (IN) | payer MEDICARE, MEDICAID ==
[2018-06-16 15:05] VITALS: BMI 20.7
--- NOTE | 2018-06-16 15:38 | C.PDOC ---
History Of Present Illness 82 y/o female with a PMHx of HTN, DM, frequent UTIs, cystocele and hydronephrosis, presents to the ED complaining of hematuria for the past 2 weeks. Associated with urinary frequency and burning on urination. at bedside also states patient has been intermittently SOB. However, he notes their son 1 month ago and patient has been depressed. The SOB is associated with emotional upset. She denies any chest pain or SOB at present. Also denies any fever, chills, abdominal pain, or other associated symptoms. Time Seen by Provider: 06/16/18 15:15 Chief Complaint (Nursing): Female Genitourinary History Per: Patient History/Exam Limitations: no limitations Onset/Duration Of Symptoms: Intermittent Episodes Current Symptoms Are (Timing): Gone Initiating Event: Emotionaly Upset Additional History Per: Family Past Medical History Reviewed: Historical Data, Nursing Documentation, Vital Signs Vital Signs: Last Vital Signs Temp 97.6 F 06/16/18 15:05 Pulse 83 06/16/18 15:05 Resp 19 06/16/18 15:10 BP 112/65 06/16/18 15:05 Pulse Ox 100 06/16/18 15:10 - Medical History PMH: Diabetes, HTN, Peripheral Edema Other PMH: frequent UTIs, cystocele and hydronephrosis Surgical History: Endoscopy - [facility] Procedures INSERTION OF INFUSION DEV INTO SUP VENA CAVA, PERC APPROACH (03/21/17) Family History: States: No Known Family Hx - Social History Hx Alcohol Use: No Hx Substance Use: No - Immunization History Hx Tetanus Toxoid Vaccination: No Hx Influenza Vaccination: No Hx Pneumococcal Vaccination: No Review Of Systems Constitutional: Negative for: Fever, Chills Eyes: Negative for: Vision Change Cardiovascular: Negative for: Chest Pain Respiratory: Positive for: Shortness of Breath (associated with emotion/anxiety). Negative for: Cough Gastrointestinal: Negative for: Nausea, Vomiting, Abdominal Pain, Diarrhea Genitourinary: Positive for: Dysuria, Frequency, Hematuria Skin: Negative for: Rash Neurological: Negative for: Headache, Dizziness Psych: Positive for: Anxiety, Depression Physical Exam - Physical Exam Appears: Non-toxic, No Acute Distress Skin: Warm, Dry, No Rash Head: Atraumatic, Normacephalic Eye(s): bilateral: Normal Inspection, PERRL, EOMI Oral Mucosa: Moist Neck: Normal ROM Chest: Symmetrical Cardiovascular: Rhythm Regular, No Murmur Respiratory: Normal Breath Sounds, No Rales, No Rhonchi, No Wheezing Gastrointestinal/Abdominal: Bowel Sounds (normal), Soft, No Tenderness, No Guarding, No Rebound Back: No CVA Tenderness, No Vertebral Tenderness Extremity: Bilateral: Atraumatic, Normal Color And Temperature Neurological/Psych: Oriented x3, Normal Speech ED Course And Treatment - Laboratory Results Result Diagrams: 06/16/18 16:33 06/16/18 16:33 Lab Interpretation: Abnormal (Hgb 8.0, UA clumps WBC many bacteria, nitrite +, 3+ leukocyte esterase.) O2 Sat by Pulse Oximetry: 100 (RA) Pulse Ox Interpretation: Normal Progress Note: Blood work and UA ordered and reviewed. Urine culture sent. Labs reviewed, UA indicates infection. Hemoglobin is 8. Patient started on IV rocephin for UTI. - Physician Consult Information Time Consulting Physician Contacted: 19:37 Physician Contacted: Emery Squires Disposition - Disposition Disposition: HOSPITALIZED Disposition Time: 19:37 Condition: STABLE Forms: [employer] (Irish) - Clinical Impression Clinical Impression: UTI (urinary tract infection), Anemia - Scribe Statement The provider has reviewed the documentation as recorded by the Billy Zayas Provider Attestation: All medical record entries made by the Americaibgayla were at my direction and personally dictated by me. I have reviewed the chart and agree that the record accurately reflects my personal performance of the history, physical exam, medical decision making, and the department course for this patient. I have also personally directed, reviewed, and agree with the discharge instructions and disposition.
[2018-06-16 16:38] LABS: BASO % 0.5 % (0.0-2.0); EOS # 0.3 K/uL (0.0-0.7); LYMPH # 1.9 K/uL (1.0-4.3); MEAN CORPUSCULAR HEMOGLOBIN 26.8 pg (27.0-31.0); MEAN CORPUSCULAR HGB CONC 31.3 g/dL (33.0-37.0); MEAN PLATELET VOLUME 7.6 fL (7.2-11.7); MONO # 0.9 K/uL (0.0-0.8); MONO % 12.8 % (0.0-10.0); NEUT # 3.8 K/uL (1.8-7.0); NEUT % 54.7 % (50.0-75.0); RBC 2.97 Mil/uL (3.80-5.20); RED CELL DISTRIBUTION WIDTH 15.6 % (11.5-14.5); WHITE BLOOD COUNT 6.9 K/uL (4.8-10.8)
[2018-06-16 16:56] LABS: URINE BACTERIA MANY (<OCC); URINE BILIRUBIN NEGATIVE (NEGATIVE); URINE BLOOD 3+ (NEGATIVE); URINE CLARITY Turbid (Clear); URINE COLOR Yellow (YELLOW); URINE GLUCOSE (UA) NORMAL (Normal); URINE LEUKOCYTE ESTERASE 3+ Leu/uL (Negative); URINE PROTEIN 2+ mg/dL (NEGATIVE); URINE UROBILINOGEN NORMAL mg/dL (0.2-1.0); WBC CLUMPS MANY /hpf
[2018-06-16 16:57] LABS: ALB/GLOB RATIO 0.9 (1.0-2.1); ALBUMIN 3.3 g/dL (3.5-5.0); ALT/SGPT 12 U/L (9-52); AST/SGOT 28 U/L (14-36); BLOOD UREA NITROGEN 19 mg/dL (7-17); GFR NON-AFRICAN AMERICAN 53
[2018-06-16 17:05] LABS: MEAN CELL VOLUME 85.6 fL (81.0-99.0)
[2018-06-16] MEDS ORDERED: cefTRIAXone IV 1 gm in Dextros 50 ML IVPB ONE (17:17)
--- NOTE | 2018-06-16 20:00 | CP.PCM.HP ---
<Mesfin Farooq - Last Filed: 06/16/18 23:11> History of Present Illness - History of Present Illness History of Present Illness: H&P for Hospitalist Dr. Squires 82 F w/ PMhx of HTN, DM, osteoarthritis, hemorrhoids, cystocele, peripheral neuropathy presents to ED for 2 weeks of hematuria. Associated with it, patient complains of burning and increased urinary frequency. Patient reports she waited for 2 weeks as her son recently . Pt reports she had similar symptoms approximately 2 years prior requiring ureteral stents. Pt admits to occasional SOB during this time. Pt denies recent travel, sick contacts. ROS: Denies headaches, vision changes, chest pain, abdominal pain, nausea, diarrhea, fevers, chills. Pt admits to chronic leg pain for which she takes medication for it. Pt admits to baseline constipation for which she takes colace. Pt had blood bowel movement 2/2 to hemorrhoids 5 days prior. No blood bowel movement since 5 days. PMD; [facility] Urologist: Oc Aburto PMhx: HTN, DM, osteoarthritis, hemorrhoids, cystocele, peripheral neuropathy Meds: Gabapentin, Enalipril, Diabetes mediation (patient cannot recall name) PSHx: bilateral ureteral stent placement 02/20/17 Allergies: NKDA SHx: Denies tobacco, ETOH, illicit drug use FHx: Mother - Hypertension Code Status: DNR/DNI Present on Admission - Present on Admission Any Indicators Present on Admission: No History of DVT/PE: No History of Uncontrolled Diabetes: No Urinary Catheter: No Decubitus Ulcer Present: No Review of Systems - Constitutional Constitutional: absent: Chills, Fever, Headache - EENT Eyes: absent: Blurred Vision, Change in Vision Nose/Mouth/Throat: absent: Nasal Congestion, Nose Pain - Cardiovascular Cardiovascular: absent: Chest Pain, Chest Pain at Rest - Respiratory Respiratory: Dyspnea - Gastrointestinal Gastrointestinal: absent: Abdominal Pain, Bloating, Diarrhea, Dysphagia - Genitourinary Genitourinary: Change in Urinary Stream, Dysuria, Hematuria, Urinary Frequency. absent: Urinary Incontinence, Urinary Hesitance, Voiding Freq/Small Amts - Musculoskeletal Musculoskeletal: absent: Arthralgias, Joint Swelling, Muscle Weakness - Integumentary Integumentary: absent: Bleeding Lesions, Changing Lesions - Neurological Neurological: absent: Numbness, Headaches - Psychiatric Psychiatric: absent: Confusion, Depression Past Patient History - Past Medical History & Family History Past Medical History?: Yes - Past Social History Smoking Status: Never Smoked - CARDIAC Hx Hypertension: Yes Hx Peripheral Edema: Yes - PULMONARY Hx Respiratory Disorders: Yes (ABN CHEST X RAY) - NEUROLOGICAL Hx Neurological Disorder: No - HEENT Hx HEENT Problems: Yes Hx Cataracts: Yes (BILAT IOL) - RENAL Other/Comment: HYDRONEPHROSIS - ENDOCRINE/METABOLIC Hx Endocrine Disorders: Yes Hx Diabetes Mellitus Type 2: Yes - HEMATOLOGICAL/ONCOLOGICAL Hx Blood Disorders: Yes (sepsis mar 2017) - INTEGUMENTARY Hx Dermatological Problems: No - MUSCULOSKELETAL/RHEUMATOLOGICAL Hx Musculoskeletal Disorders: Yes Hx Falls: No Hx Osteoarthritis: Yes - GASTROINTESTINAL Hx Gastrointestinal Disorders: Yes (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) - GENITOURINARY/GYNECOLOGICAL Hx Genitourinary Disorders: Yes Hx Urinary Tract Infection: Yes - PSYCHIATRIC Hx Substance Use: No - SURGICAL HISTORY Hx Surgeries: Yes Hx Breast Biopsy: Yes (LEFT) Hx Cataract Extraction: Yes (BILAT IOL) Other/Comment: cystoscopy stent insertion - ANESTHESIA Hx Anesthesia: Yes Hx Anesthesia Reactions: No Hx Malignant Hyperthermia: No Meds Allergies/Adverse Reactions: Allergies Allergy/AdvReac Type Severity Reaction Status Date / Time No Known Allergies Allergy Verified 06/16/18 15:04 Physical Exam - Constitutional Appears: Non-toxic, No Acute Distress - Head Exam Head Exam: ATRAUMATIC, NORMAL INSPECTION, NORMOCEPHALIC - Eye Exam Eye Exam: EOMI, Normal appearance, PERRL Pupil Exam: NORMAL ACCOMODATION - ENT Exam ENT Exam: Mucous Membranes Moist - Neck Exam Neck exam: Positive for: Full Rom. Negative for: Tenderness - Respiratory Exam Respiratory Exam: Clear to Auscultation Bilateral, NORMAL BREATHING PATTERN. absent: Rhonchi, Wheezes - Cardiovascular Exam Cardiovascular Exam: +S1, +S2. 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 Negative for: calf tenderness, pedal edema Additional comments: tenderness on slight palpation - Back Exam Back exam: absent: CVA tenderness (L), CVA tenderness (R) - Neurological Exam Neurological exam: Alert, Oriented x3 - Psychiatric Exam Psychiatric exam: Normal Affect, Normal Mood - Skin Skin Exam: Dry, Intact, Normal Color, Warm Results - Vital Signs Recent Vital Signs: Last Vital Signs Temp 97.6 F 06/16/18 15:05 Pulse 76 06/16/18 18:21 Resp 14 06/16/18 18:21 BP 134/64 06/16/18 18:21 Pulse Ox 100 06/16/18 19:38 - Labs Result Diagrams: 06/16/18 16:33 06/16/18 16:33 Labs: Laboratory Results - last 24 hr 06/16/18 06/16/18 06/16/18 16:33 16:33 16:33 WBC 6.9 D RBC 2.97 L Hgb 8.0 L D Hct 25.4 L MCV 85.6 D MCH 26.8 L MCHC 31.3 L RDW 15.6 H Plt Count 463 H D MPV 7.6 Neut % (Auto) 54.7 Lymph % (Auto) 28.0 Marshall % (Auto) 12.8 H Eos % (Auto) 4.0 Baso % (Auto) 0.5 Neut # (Auto) 3.8 Lymph # (Auto) 1.9 Marshall # (Auto) 0.9 H Eos # (Auto) 0.3 Baso # (Auto) 0.0 Sodium 140 Potassium 4.4 Chloride 107 Carbon Dioxide 26 Anion Gap 12 BUN 19 H Creatinine 1.0 Est GFR ( Amer) > 60 Est GFR (Non-Af Amer) 53 Random Glucose 157 H D Calcium 9.0 Total Bilirubin 0.3 AST 28 ALT 12 Alkaline Phosphatase 180 H D Total Protein 7.2 Albumin 3.3 L Globulin 3.9 Albumin/Globulin Ratio 0.9 L Urine Color Yellow Urine Clarity Turbid Urine pH 5.0 Ur Specific [place] 1.010 Urine Protein 2+ H Urine Glucose (UA) Normal Urine Ketones Negative Urine Blood 3+ H Urine Nitrate Positive H Urine Bilirubin Negative Urine Urobilinogen Normal Ur Leukocyte Esterase 3+ H Urine WBC (Auto) 3814 H Urine RBC (Auto) 247 H Urine WBC Clumps (Auto) Many H Urine Bacteria Many H Assessment & Plan - Assessment and Plan (Free Text) Assessment: 82 F w/ PMhx of HTN, DM, UTIs, peripheral neuropathy, presents w/ hematuria X 2 weeks, UA indicative of UTI Plan: UTI - afebrile, WBC - UA: 3+ leuk esterase, 3814 WBC, 247 RBC - F/u UC - 1 X ceftriaxone given in ED - Zosyn 2.25 mg IVPG Q6H, Lactobaccilus 1 cap PO BID - F/u uro recs Anemia - hgb 8.0, previous hgb in 9-10s - likely due to hematuria - stool occult performed due to pt history of hemorrhoids & blood stools - stool occult negative - repeat CBC @ midnight - transfuse PRN - F/U Iron, ferritin, reticulocyte count, TIBC History of Hypertension - c/w home medication enalipril 5 mg daily History of diabetes - pt unsure of home medication - F/u HgA1C - ISS low - Accuchecks ACHS - hypoglycemia protocol History of peripheral neuropathy - Likely secondary to long standing diabetes - F/u HgA1C, B12, Folate - c/w home medication gabapentin 100 mg HS PPx: - DVT: VTE contraindicated due to hematuria - NPO Past midnight for possible uro procedure <Emery Squires - Last Filed: 06/17/18 06:38> Results - Vital Signs Recent Vital Signs: Last Vital Signs Temp 98.9 F 06/17/18 00:00 Pulse 128 H 06/17/18 00:00 Resp 20 06/17/18 00:00 BP 140/72 06/17/18 00:00 Pulse Ox 97 06/17/18 00:00 - Labs Result Diagrams: 06/17/18 01:22 06/17/18 01:22 Labs: Laboratory Results - last 24 hr 06/16/18 06/16/18 06/16/18 16:33 16:33 16:33 WBC 6.9 D RBC 2.97 L Hgb 8.0 L D Hct 25.4 L MCV 85.6 D MCH 26.8 L MCHC 31.3 L RDW 15.6 H Plt Count 463 H D MPV 7.6 Neut % (Auto) 54.7 Lymph % (Auto) 28.0 Marshall % (Auto) 12.8 H Eos % (Auto) 4.0 Baso % (Auto) 0.5 Neut # (Auto) 3.8 Lymph # (Auto) 1.9 Marshall # (Auto) 0.9 H Eos # (Auto) 0.3 Baso # (Auto) 0.0 Sodium 140 Potassium 4.4 Chloride 107 Carbon Dioxide 26 Anion Gap 12 BUN 19 H Creatinine 1.0 Est GFR ( Amer) > 60 Est GFR (Non-Af Amer) 53 POC Glucose (mg/dL) Random Glucose 157 H D Calcium 9.0 Phosphorus Magnesium Iron TIBC % Saturation Ferritin Total Bilirubin 0.3 AST 28 ALT 12 Alkaline Phosphatase 180 H D Total Protein 7.2 Albumin 3.3 L Globulin 3.9 Albumin/Globulin Ratio 0.9 L Vitamin B12 Folate Urine Color Yellow Urine Clarity Turbid Urine pH 5.0 Ur Specific [place] 1.010 Urine Protein 2+ H Urine Glucose (UA) Normal Urine Ketones Negative Urine Blood 3+ H Urine Nitrate Positive H Urine Bilirubin Negative Urine Urobilinogen Normal Ur Leukocyte Esterase 3+ H Urine WBC (Auto) 3814 H Urine RBC (Auto) 247 H Urine WBC Clumps (Auto) Many H Urine Bacteria Many H Stool Occult Blood 06/16/18 06/16/18 06/17/18 20:38 22:06 01:22 WBC 20.3 H D RBC 3.38 L Hgb 8.9 L Hct 28.5 L MCV 84.3 MCH 26.2 L MCHC 31.1 L RDW 15.5 H Plt Count 517 H MPV 7.6 Neut % (Auto) 82.0 H Lymph % (Auto) 10.3 L Marshall % (Auto) 6.5 Eos % (Auto) 1.0 Baso % (Auto) 0.2 Neut # (Auto) 16.6 H Lymph # (Auto) 2.1 Marshall # (Auto) 1.3 H Eos # (Auto) 0.2 Baso # (Auto) 0.0 Sodium Potassium Chloride Carbon Dioxide Anion Gap BUN Creatinine Est GFR ( Amer) Est GFR (Non-Af Amer) POC Glucose (mg/dL) 118 H Random Glucose Calcium Phosphorus Magnesium Iron TIBC % Saturation Ferritin Total Bilirubin AST ALT Alkaline Phosphatase Total Protein Albumin Globulin Albumin/Globulin Ratio Vitamin B12 Folate Urine Color Urine Clarity Urine pH Ur Specific [place] Urine Protein Urine Glucose (UA) Urine Ketones Urine Blood Urine Nitrate Urine Bilirubin Urine Urobilinogen Ur Leukocyte Esterase Urine WBC (Auto) Urine RBC (Auto) Urine WBC Clumps (Auto) Urine Bacteria Stool Occult Blood Negative 06/17/18 06/17/18 06/17/18 01:22 01:22 01:22 WBC RBC Hgb Hct MCV MCH MCHC RDW Plt Count MPV Neut % (Auto) Lymph % (Auto) Marshall % (Auto) Eos % (Auto) Baso % (Auto) Neut # (Auto) Lymph # (Auto) Marshall # (Auto) Eos # (Auto) Baso # (Auto) Sodium 136 Potassium 4.6 Chloride 107 Carbon Dioxide 22 Anion Gap 11 BUN 18 H Creatinine 1.1 Est GFR ( Amer) 57 Est GFR (Non-Af Amer) 47 POC Glucose (mg/dL) Random Glucose 130 H Calcium 9.8 Phosphorus 3.6 Magnesium 1.7 Iron 21 L TIBC 325 % Saturation 7 L Ferritin 13.6 Total Bilirubin 0.3 AST 34 ALT 11 Alkaline Phosphatase 184 H Total Protein 7.6 Albumin 3.4 L Globulin 4.2 H Albumin/Globulin Ratio 0.8 L Vitamin B12 906 Folate > 20.0 Urine Color Urine Clarity Urine pH Ur Specific [place] Urine Protein Urine Glucose (UA) Urine Ketones Urine Blood Urine Nitrate Urine Bilirubin Urine Urobilinogen Ur Leukocyte Esterase Urine WBC (Auto) Urine RBC (Auto) Urine WBC Clumps (Auto) Urine Bacteria Stool Occult Blood Assessment & Plan - Date & Time Date: 06/17/18 (I have seen and examined the patient. I agree with the findings and plan of care as documented by Dr. Farooq. Patient with UTI. History of pyelo. Zosyn for now. Urine and blood cultures. Monitor for signs and symptoms of sepsis. Anemia. Hematuria. Monitor CBC. Transfuse PRBCs as needed. Continue home meds for history of hypertension. Monitor for acute changes.) Time: 06:36 Attending/Attestation - Attestation I have personally seen and examined this patient.: Yes I have fully participated in the care of the patient.: Yes I have reviewed all pertinent clinical information: Yes
[2018-06-16] MEDS ORDERED: Glucagon Recombinant 1 mg Inj IM PRN (21:54)
[2018-06-16] MEDS ORDERED: Dextrose 50% SYRINGE Inj (50 ml) IV PRN (21:54)
[2018-06-16] MEDS: (Novolog) Insulin Aspart, Recombinant 100 u/ml 10 ml vial SC SCH (22:07)
[2018-06-16] MEDS: Piperacill/Tazo 2.25gm in Dex 2.25 GM/50 ML BAG IVPB SCH (22:33)
[2018-06-17 01:41] LABS: BASO % 0.2 % (0.0-2.0); EOS # 0.2 K/uL (0.0-0.7); HEMOGLOBIN 8.9 g/dL (11.0-16.0); LYMPH # 2.1 K/uL (1.0-4.3); LYMPH % 10.3 % (20.0-40.0); MEAN CELL VOLUME 84.3 fL (81.0-99.0); MEAN CORPUSCULAR HEMOGLOBIN 26.2 pg (27.0-31.0); MEAN CORPUSCULAR HGB CONC 31.1 g/dL (33.0-37.0); MEAN PLATELET VOLUME 7.6 fL (7.2-11.7); MONO # 1.3 K/uL (0.0-0.8); MONO % 6.5 % (0.0-10.0); NEUT # 16.6 K/uL (1.8-7.0); RBC 3.38 Mil/uL (3.80-5.20); RED CELL DISTRIBUTION WIDTH 15.5 % (11.5-14.5)
[2018-06-17 01:48] LABS: IRON 21 ug/dL (37-170)
[2018-06-17 01:49] LABS: WHITE BLOOD COUNT 20.3 K/uL (4.8-10.8)
[2018-06-17 01:57] LABS: % IRON SATURATION 7 (20-55); TOTAL IRON BINDING CAPACITY 325 ug/dL (250-450)
[2018-06-17] MEDS ORDERED: Ferric Sodium Gluconat Complex 62.5 mg/5 ml Vial IVPB ONE (02:08)
[2018-06-17 02:51] LABS: FOLATE > 20.0 ng/mL
[2018-06-17 02:57] LABS: ALB/GLOB RATIO 0.8 (1.0-2.1); ALBUMIN 3.4 g/dL (3.5-5.0); ALT/SGPT 11 U/L (9-52); AST/SGOT 34 U/L (14-36); BLOOD UREA NITROGEN 18 mg/dL (7-17); CALCIUM 9.8 mg/dl (8.6-10.4); GFR NON-AFRICAN AMERICAN 47
[2018-06-17] MEDS: Piperacill/Tazo 2.25gm in Dex 2.25 GM/50 ML BAG IVPB SCH ×2 (05:16→09:52)
[2018-06-17] MEDS: (Novolog) Insulin Aspart, Recombinant 100 u/ml 10 ml vial SC SCH ×5 (06:57→21:22)
[2018-06-17] MEDS: Lactobacillus Acidophilus 500 MU Cap PO SCH ×2 (09:56→17:29)
--- NOTE | 2018-06-17 10:34 | CARD ---
APPROVED REPORT Date of service: 06/16/2018 EKG Measurement Heart [id number] <Conclusion> Sinus tachycardia Left axis deviation Low voltage QRS Abnormal ECG
--- NOTE | 2018-06-17 11:31 | CP.PCM.PN ---
<Royce Gillette - Last Filed: 06/17/18 17:40> Subjective - Date & Time of Evaluation Date of Evaluation: 06/17/18 Time of Evaluation: 14:37 - Subjective Subjective: HOSPITALIST SERVICE Pt s/e at bedside, complains of persistent blood in urine and back pain, denies cp sob fc nv. Objective - Vital Signs/Intake and Output Vital Signs (last 24 hours): Temp Pulse Resp BP Pulse Ox 98.9 F 128 H 20 140/72 97 06/17/18 00:00 06/17/18 00:00 06/17/18 00:00 06/17/18 00:00 06/17/18 00:00 - Medications Medications: Current Medications Dextrose (Dextrose 50% Inj) 0 ml IV STAT PRN; Protocol PRN Reason: Hypoglycemia Protocol Dextrose (Glutose 15) 0 gm PO ONCE PRN; Protocol PRN Reason: Hypoglycemia Protocol Docusate Sodium (Colace) 100 mg PO TID [facility] Last Admin: 06/17/18 09:55 Dose: Not Given Enalapril Maleate (Vasotec) 5 mg PO DAILY [facility] Last Admin: 06/17/18 09:56 Dose: Not Given Ferrous Sulfate (Feosol) 325 mg PO DAILY [facility] Gabapentin (Neurontin) 100 mg PO HS [facility] Last Admin: 06/16/18 22:33 Dose: 100 mg Glucagon (Glucagen Diagnostic Kit) 0 mg IM STAT PRN; Protocol PRN Reason: Hypoglycemia Protocol Piperacillin Sod/Tazobactam Sod (Zosyn 2.25 Gm Iv Premix) 2.25 gm in 50 mls @ 100 mls/hr IVPB Q6H [facility]; Protocol Last Admin: 06/17/18 09:52 Dose: 100 mls/hr Dextrose (Dextrose 5% In Water 1000 Ml) 1,000 mls @ 0 mls/hr IV .Q0M PRN; Protocol PRN Reason: Hypoglycemia Protocol Insulin Aspart (Novolog) 0 unit SC ACHS [facility]; Protocol Last Admin: 06/17/18 07:29 Dose: 1 unit Lactobacillus Acidophilus (Lactobacillus) 1 cap PO BID [facility] Last Admin: 06/17/18 09:56 Dose: Not Given - Labs Labs: 06/17/18 01:22 06/17/18 01:22 - Additional Findings Additional findings: - Constitutional Appears: Non-toxic, No Acute Distress - Head Exam Head Exam: ATRAUMATIC, NORMAL INSPECTION, NORMOCEPHALIC - Eye Exam Eye Exam: EOMI, Normal appearance, PERRL Pupil Exam: NORMAL ACCOMODATION - ENT Exam ENT Exam: Mucous Membranes Moist - Neck Exam Neck exam: Positive for: Full Rom. Negative for: Tenderness - Respiratory Exam Respiratory Exam: Clear to Auscultation Bilateral, NORMAL BREATHING PATTERN. absent: Rhonchi, Wheezes - Cardiovascular Exam Cardiovascular Exam: +S1, +S2. 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 Negative for: calf tenderness, pedal edema Additional comments: tenderness on slight palpation - Back Exam Back exam: Poistive: CVA tenderness (L), CVA tenderness (R) - Neurological Exam Neurological exam: Alert, Oriented x3 - Psychiatric Exam Psychiatric exam: Normal Affect, Normal Mood - Skin Skin Exam: Dry, Intact, Normal Color, Warm Assessment and Plan - Assessment and Plan (Free Text) Assessment: 82 F w/ PMhx of HTN, DM, UTIs, peripheral neuropathy, presents w/ hematuria X 2 weeks, UA indicative of UTI Plan: Pyelonephritis, UTI - afebrile, WBC - UA: 3+ leuk esterase, 3814 WBC, 247 RBC - F/u UC - 1 X ceftriaxone given in ED - Zosyn 2.25 mg IVPG Q6H, Lactobaccilus 1 cap PO BID - F/u uro recs - CT shows bilateral hydronephrosis - ID Dr Lew consulted f/u recs Anemia - hgb 8.0, previous hgb in 9-10s - likely due to hematuria - stool occult performed due to pt history of hemorrhoids & blood stools - stool occult negative - repeat CBC @ midnight - transfuse PRN - Low Iron, ferritin, reticulocyte count, TIBC History of Hypertension - c/w home medication enalipril 5 mg daily History of diabetes - pt unsure of home medication - HgA1C wnl - ISS low - Accuchecks ACHS - hypoglycemia protocol History of peripheral neuropathy - Likely secondary to long standing diabetes - HgA1C, B12, Folate wnl - c/w home medication gabapentin 100 mg HS PPx: - DVT: VTE contraindicated due to hematuria - NPO Past midnight for possible uro procedure <Maciel Pandya - Last Filed: 06/18/18 15:18> Objective - Vital Signs/Intake and Output Vital Signs (last 24 hours): Temp Pulse Resp BP Pulse Ox 98.5 F 83 20 105/64 97 06/18/18 07:00 06/18/18 07:00 06/18/18 07:00 06/18/18 09:50 06/18/18 07:00 - Medications Medications: Current Medications Dextrose (Dextrose 50% Inj) 0 ml IV STAT PRN; Protocol PRN Reason: Hypoglycemia Protocol Dextrose (Glutose 15) 0 gm PO ONCE PRN; Protocol PRN Reason: Hypoglycemia Protocol Docusate Sodium (Colace) 100 mg PO TID [facility] Last Admin: 06/18/18 13:14 Dose: 100 mg Enalapril Maleate (Vasotec) 5 mg PO DAILY [facility] Last Admin: 06/18/18 09:50 Dose: 5 mg Ferrous Sulfate (Feosol) 325 mg PO DAILY [facility] Last Admin: 06/18/18 09:50 Dose: 325 mg Gabapentin (Neurontin) 100 mg PO HS [facility] Last Admin: 06/17/18 21:34 Dose: 100 mg Glucagon (Glucagen Diagnostic Kit) 0 mg IM STAT PRN; Protocol PRN Reason: Hypoglycemia Protocol Dextrose (Dextrose 5% In Water 1000 Ml) 1,000 mls @ 0 mls/hr IV .Q0M PRN; Pr otocol PRN Reason: Hypoglycemia Protocol Meropenem 500 mg/ Sodium (Chloride) 100 mls @ 100 mls/hr IVPB Q8H [facility]; Protocol Last Admin: 06/18/18 09:50 Dose: 100 mls/hr Insulin Aspart (Novolog) 0 unit SC ACHS [facility]; Protocol Last Admin: 06/18/18 12:41 Dose: 1 unit Lactobacillus Acidophilus (Lactobacillus) 1 cap PO BID [facility] Last Admin: 06/18/18 09:50 Dose: 1 cap - Labs Labs: 06/18/18 07:52 06/18/18 07:52 Attending/Attestation - Attestation I have personally seen and examined this patient.: Yes I have fully participated in the care of the patient.: Yes I have reviewed all pertinent clinical information, including history, physical exam and plan: Yes Notes (Text): Pyelonephritis, UTI
--- NOTE | 2018-06-17 12:54 | RAD ---
Date of service: 06/16/2018 HISTORY: preop clearance COMPARISON: 03/21/2017 and 11/04/2016 FINDINGS: LUNGS: No interval consolidation. The sub cm left upper lobe nodule inferred as a granuloma is unchanged with the 11/04/2016 study. A benign granuloma is compatible with this. PLEURA: No significant pleural effusion identified, no pneumothorax apparent. Possible trace left apical pleural thickening is present CARDIOVASCULAR: There is presence of aortic atherosclerotic calcification on x-ray. Descending thoracic aorta is slightly unfolded slightly prominent-yet unchanged Normal cardiac size. No pulmonary vascular congestion. OSSEOUS STRUCTURES: Thoraco lumbar spondylosis. Bilateral shoulder arthrosis VISUALIZED UPPER ABDOMEN: Normal. OTHER FINDINGS: Cluster of subcentimeter opacities project just left lateral to the inferior left ribs also over the left breast soft tissues-this appearance is unclear may relate to left breast calcified fibroadenomas given the stability since 2017, benign etiology is favored. IMPRESSION: No acute cardiopulmonary pathology noted. Other findings as above.
--- NOTE | 2018-06-17 13:23 | CT ---
Date of service: 06/17/2018 PROCEDURE: CT Abdomen and Pelvis without intravenous contrast HISTORY: UTI, hematuria, ? pyleonephritis COMPARISON: 03/24/2017 TECHNIQUE: Technique. Contrast dose: Radiation dose: Total exam DLP = 337.26 mGy-cm. This CT exam was performed using one or more of the following dose reduction techniques: Automated exposure control, adjustment of the mA and/or kV according to patient size, and/or use of iterative reconstruction technique. FINDINGS: LOWER THORAX: Unremarkable. LIVER: Unremarkable. No gross lesion or ductal dilatation. GALLBLADDER AND BILE DUCTS: Unremarkable. PANCREAS: Unremarkable. No gross lesion or ductal dilatation. SPLEEN: Unremarkable. ADRENALS: Unremarkable. No mass. KIDNEYS AND URETERS: Redemonstration of bilateral hydroureteronephrosis to the level of the urinary bladder. VASCULATURE: Unremarkable. No aortic aneurysm. No aortic atherosclerotic calcification or mural plaque present. BOWEL: Unremarkable. No obstruction. No gross mural thickening. APPENDIX: Unremarkable. Normal appendix. PERITONEUM: Unremarkable. No free fluid. No free air. LYMPH NODES: Unremarkable. No enlarged lymph nodes. BLADDER: Unremarkable. REPRODUCTIVE: Unremarkable. BONES: No acute fracture. OTHER FINDINGS: None. IMPRESSION: Redemonstration of bilateral hydroureteronephrosis to the level of the urinary bladder. Redemonstration of circumferential urinary bladder wall thickening with mild perivesicular fat infiltration suggestive of cystitis; recommend correlation with cystoscopy and cytology.
--- NOTE | 2018-06-17 16:07 | CP.PCM.CON ---
History of Present Illness - History of Present Illness History of Present Illness: dictated Past Patient History - Past Medical History & Family History Past Medical History?: Yes - Past Social History Smoking Status: Never Smoked - CARDIAC Hx Hypertension: Yes Hx Peripheral Edema: Yes - PULMONARY Hx Respiratory Disorders: Yes (ABN CHEST X RAY) - NEUROLOGICAL Hx Neurological Disorder: No - HEENT Hx HEENT Problems: Yes Hx Cataracts: Yes (BILAT IOL) - RENAL Other/Comment: HYDRONEPHROSIS - ENDOCRINE/METABOLIC Hx Endocrine Disorders: Yes Hx Diabetes Mellitus Type 2: Yes - HEMATOLOGICAL/ONCOLOGICAL Hx Blood Disorders: Yes (sepsis mar 2017) - INTEGUMENTARY Hx Dermatological Problems: No - MUSCULOSKELETAL/RHEUMATOLOGICAL Hx Musculoskeletal Disorders: Yes Hx Falls: No Hx Osteoarthritis: Yes - GASTROINTESTINAL Hx Gastrointestinal Disorders: Yes (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) - GENITOURINARY/GYNECOLOGICAL Hx Genitourinary Disorders: Yes Hx Urinary Tract Infection: Yes - PSYCHIATRIC Hx Substance Use: No - SURGICAL HISTORY Hx Surgeries: Yes Hx Breast Biopsy: Yes (LEFT) Hx Cataract Extraction: Yes (BILAT IOL) Other/Comment: cystoscopy stent insertion - ANESTHESIA Hx Anesthesia: Yes Hx Anesthesia Reactions: No Hx Malignant Hyperthermia: No Meds Allergies/Adverse Reactions: Allergies Allergy/AdvReac Type Severity Reaction Status Date / Time No Known Allergies Allergy Verified 06/16/18 15:04 - Medications Medications: Current Medications Dextrose (Dextrose 50% Inj) 0 ml IV STAT PRN; Protocol PRN Reason: Hypoglycemia Protocol Dextrose (Glutose 15) 0 gm PO ONCE PRN; Protocol PRN Reason: Hypoglycemia Protocol Docusate Sodium (Colace) 100 mg PO TID [facility] Last Admin: 06/17/18 13:18 Dose: Not Given Enalapril Maleate (Vasotec) 5 mg PO DAILY [facility] Last Admin: 06/17/18 09:56 Dose: Not Given Ferrous Sulfate (Feosol) 325 mg PO DAILY [facility] Gabapentin (Neurontin) 100 mg PO HS [facility] Last Admin: 06/16/18 22:33 Dose: 100 mg Glucagon (Glucagen Diagnostic Kit) 0 mg IM STAT PRN; Protocol PRN Reason: Hypoglycemia Protocol Dextrose (Dextrose 5% In Water 1000 Ml) 1,000 mls @ 0 mls/hr IV .Q0M PRN; Protocol PRN Reason: Hypoglycemia Protocol Insulin Aspart (Novolog) 0 unit SC ACHS [facility]; Protocol Last Admin: 06/17/18 12:07 Dose: Not Given Lactobacillus Acidophilus (Lactobacillus) 1 cap PO BID [facility] Last Admin: 06/17/18 09:56 Dose: Not Given Results - Vital Signs Recent Vital Signs: Last Vital Signs Temp 97.9 F 06/17/18 07:35 Pulse 93 H 06/17/18 07:35 Resp 20 06/17/18 07:35 BP 95/62 L 06/17/18 07:35 Pulse Ox 98 06/17/18 07:35 - Labs Result Diagrams: 06/17/18 01:22 06/17/18 01:22 Labs: Laboratory Results - last 24 hr 06/16/18 06/16/18 06/16/18 16:33 16:33 16:33 WBC 6.9 D RBC 2.97 L Hgb 8.0 L D Hct 25.4 L MCV 85.6 D MCH 26.8 L MCHC 31.3 L RDW 15.6 H Plt Count 463 H D MPV 7.6 Neut % (Auto) 54.7 Lymph % (Auto) 28.0 Gibson % (Auto) 12.8 H Eos % (Auto) 4.0 Baso % (Auto) 0.5 Neut # (Auto) 3.8 Lymph # (Auto) 1.9 Gibson # (Auto) 0.9 H Eos # (Auto) 0.3 Baso # (Auto) 0.0 Sodium 140 Potassium 4.4 Chloride 107 Carbon Dioxide 26 Anion Gap 12 BUN 19 H Creatinine 1.0 Est GFR ( Amer) > 60 Est GFR (Non-Af Amer) 53 POC Glucose (mg/dL) Random Glucose 157 H D Hemoglobin A1c Calcium 9.0 Phosphorus Magnesium Iron TIBC % Saturation Ferritin Total Bilirubin 0.3 AST 28 ALT 12 Alkaline Phosphatase 180 H D Total Protein 7.2 Albumin 3.3 L Globulin 3.9 Albumin/Globulin Ratio 0.9 L Vitamin B12 Folate Urine Color Yellow Urine Clarity Turbid Urine pH 5.0 Ur Specific [place] 1.010 Urine Protein 2+ H Urine Glucose (UA) Normal Urine Ketones Negative Urine Blood 3+ H Urine Nitrate Positive H Urine Bilirubin Negative Urine Urobilinogen Normal Ur Leukocyte Esterase 3+ H Urine WBC (Auto) 3814 H Urine RBC (Auto) 247 H Urine WBC Clumps (Auto) Many H Urine Bacteria Many H Stool Occult Blood 06/16/18 06/16/18 06/17/18 20:38 22:06 01:22 WBC 20.3 H D RBC 3.38 L Hgb 8.9 L Hct 28.5 L MCV 84.3 MCH 26.2 L MCHC 31.1 L RDW 15.5 H Plt Count 517 H MPV 7.6 Neut % (Auto) 82.0 H Lymph % (Auto) 10.3 L Gibson % (Auto) 6.5 Eos % (Auto) 1.0 Baso % (Auto) 0.2 Neut # (Auto) 16.6 H Lymph # (Auto) 2.1 Gibson # (Auto) 1.3 H Eos # (Auto) 0.2 Baso # (Auto) 0.0 Sodium Potassium Chloride Carbon Dioxide Anion Gap BUN Creatinine Est GFR ( Amer) Est GFR (Non-Af Amer) POC Glucose (mg/dL) 118 H Random Glucose Hemoglobin A1c Calcium Phosphorus Magnesium Iron TIBC % Saturation Ferritin Total Bilirubin AST ALT Alkaline Phosphatase Total Protein Albumin Globulin Albumin/Globulin Ratio Vitamin B12 Folate Urine Color Urine Clarity Urine pH Ur Specific [place] Urine Protein Urine Glucose (UA) Urine Ketones Urine Blood Urine Nitrate Urine Bilirubin Urine Urobilinogen Ur Leukocyte Esterase Urine WBC (Auto) Urine RBC (Auto) Urine WBC Clumps (Auto) Urine Bacteria Stool Occult Blood Negative 06/17/18 06/17/18 06/17/18 01:22 01:22 01:22 WBC RBC Hgb Hct MCV MCH MCHC RDW Plt Count MPV Neut % (Auto) Lymph % (Auto) Gibson % (Auto) Eos % (Auto) Baso % (Auto) Neut # (Auto) Lymph # (Auto) Gibson # (Auto) Eos # (Auto) Baso # (Auto) Sodium 136 Potassium 4.6 Chloride 107 Carbon Dioxide 22 Anion Gap 11 BUN 18 H Creatinine 1.1 Est GFR ( Amer) 57 Est GFR (Non-Af Amer) 47 POC Glucose (mg/dL) Random Glucose 130 H Hemoglobin A1c 6.2 Calcium 9.8 Phosphorus 3.6 Magnesium 1.7 Iron TIBC % Saturation Ferritin 13.6 Total Bilirubin 0.3 AST 34 ALT 11 Alkaline Phosphatase 184 H Total Protein 7.6 Albumin 3.4 L Globulin 4.2 H Albumin/Globulin Ratio 0.8 L Vitamin B12 906 Folate > 20.0 Urine Color Urine Clarity Urine pH Ur Specific [place] Urine Protein Urine Glucose (UA) Urine Ketones Urine Blood Urine Nitrate Urine Bilirubin Urine Urobilinogen Ur Leukocyte Esterase Urine WBC (Auto) Urine RBC (Auto) Urine WBC Clumps (Auto) Urine Bacteria Stool Occult Blood 06/17/18 06/17/18 06/17/18 01:22 06:36 12:00 WBC RBC Hgb Hct MCV MCH MCHC RDW Plt Count MPV Neut % (Auto) Lymph % (Auto) Gibson % (Auto) Eos % (Auto) Baso % (Auto) Neut # (Auto) Lymph # (Auto) Gibson # (Auto) Eos # (Auto) Baso # (Auto) Sodium Potassium Chloride Carbon Dioxide Anion Gap BUN Creatinine Est GFR ( Amer) Est GFR (Non-Af Amer) POC Glucose (mg/dL) 159 H 140 H Random Glucose Hemoglobin A1c Calcium Phosphorus Magnesium Iron 21 L TIBC 325 % Saturation 7 L Ferritin Total Bilirubin AST ALT Alkaline Phosphatase Total Protein Albumin Globulin Albumin/Globulin Ratio Vitamin B12 Folate Urine Color Urine Clarity Urine pH Ur Specific [place] Urine Protein Urine Glucose (UA) Urine Ketones Urine Blood Urine Nitrate Urine Bilirubin Urine Urobilinogen Ur Leukocyte Esterase Urine WBC (Auto) Urine RBC (Auto) Urine WBC Clumps (Auto) Urine Bacteria Stool Occult Blood 06/17/18 15:54 WBC RBC Hgb Hct MCV MCH MCHC RDW Plt Count MPV Neut % (Auto) Lymph % (Auto) Gibson % (Auto) Eos % (Auto) Baso % (Auto) Neut # (Auto) Lymph # (Auto) Gibson # (Auto) Eos # (Auto) Baso # (Auto) Sodium Potassium Chloride Carbon Dioxide Anion Gap BUN Creatinine Est GFR ( Amer) Est GFR (Non-Af Amer) POC Glucose (mg/dL) 225 H Random Glucose Hemoglobin A1c Calcium Phosphorus Magnesium Iron TIBC % Saturation Ferritin Total Bilirubin AST ALT Alkaline Phosphatase Total Protein Albumin Globulin Albumin/Globulin Ratio Vitamin B12 Folate Urine Color Urine Clarity Urine pH Ur Specific [place] Urine Protein Urine Glucose (UA) Urine Ketones Urine Blood Urine Nitrate Urine Bilirubin Urine Urobilinogen Ur Leukocyte Esterase Urine WBC (Auto) Urine RBC (Auto) Urine WBC Clumps (Auto) Urine Bacteria Stool Occult Blood
[2018-06-17] MEDS: Meropenem 500 MG in Sodium Chloride 0.9% 100 ML IVPB SCH (17:30)
--- NOTE | 2018-06-17 21:15 | CP.PCM.CON ---
Past Patient History - Past Medical History & Family History Past Medical History?: Yes - Past Social History Smoking Status: Never Smoked - CARDIAC Hx Hypertension: Yes - PULMONARY Hx Respiratory Disorders: Yes (ABN CHEST X RAY) - NEUROLOGICAL Hx Neurological Disorder: No - HEENT Hx HEENT Problems: Yes Hx Cataracts: Yes (BILAT IOL) - RENAL Other/Comment: HYDRONEPHROSIS - ENDOCRINE/METABOLIC Hx Diabetes Mellitus Type 2: Yes - HEMATOLOGICAL/ONCOLOGICAL Hx Blood Disorders: Yes (sepsis mar 2017) - INTEGUMENTARY Hx Dermatological Problems: No - MUSCULOSKELETAL/RHEUMATOLOGICAL Hx Musculoskeletal Disorders: Yes Hx Falls: No Hx Osteoarthritis: Yes - GASTROINTESTINAL Hx Gastrointestinal Disorders: Yes (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) - GENITOURINARY/GYNECOLOGICAL Hx Genitourinary Disorders: Yes Hx Urinary Tract Infection: Yes - PSYCHIATRIC Hx Substance Use: No - SURGICAL HISTORY Hx Surgeries: Yes Hx Breast Biopsy: Yes (LEFT) Hx Cataract Extraction: Yes (BILAT IOL) Other/Comment: cystoscopy stent insertion - ANESTHESIA Hx Anesthesia: Yes Hx Anesthesia Reactions: No Hx Malignant Hyperthermia: No Meds Allergies/Adverse Reactions: Allergies Allergy/AdvReac Type Severity Reaction Status Date / Time No Known Allergies Allergy Verified 06/16/18 15:04 - Medications Medications: Current Medications Dextrose (Dextrose 50% Inj) 0 ml IV STAT PRN; Protocol PRN Reason: Hypoglycemia Protocol Dextrose (Glutose 15) 0 gm PO ONCE PRN; Protocol PRN Reason: Hypoglycemia Protocol Docusate Sodium (Colace) 100 mg PO TID [facility] Last Admin: 06/17/18 17:29 Dose: 100 mg Enalapril Maleate (Vasotec) 5 mg PO DAILY [facility] Last Admin: 06/17/18 09:56 Dose: Not Given Ferrous Sulfate (Feosol) 325 mg PO DAILY [facility] Gabapentin (Neurontin) 100 mg PO HS [facility] Last Admin: 06/16/18 22:33 Dose: 100 mg Glucagon (Glucagen Diagnostic Kit) 0 mg IM STAT PRN; Protocol PRN Reason: Hypoglycemia Protocol Dextrose (Dextrose 5% In Water 1000 Ml) 1,000 mls @ 0 mls/hr IV .Q0M PRN; Protocol PRN Reason: Hypoglycemia Protocol Meropenem 500 mg/ Sodium (Chloride) 100 mls @ 100 mls/hr IVPB Q8H [facility]; Protocol Last Admin: 06/17/18 17:30 Dose: 100 mls/hr Insulin Aspart (Novolog) 0 unit SC ACHS [facility]; Protocol Last Admin: 06/17/18 17:29 Dose: 2 unit Lactobacillus Acidophilus (Lactobacillus) 1 cap PO BID [facility] Last Admin: 06/17/18 17:29 Dose: 1 cap Results - Vital Signs Recent Vital Signs: Last Vital Signs Temp 97.3 F L 06/17/18 19:03 Pulse 75 06/17/18 19:03 Resp 20 06/17/18 19:03 BP 104/65 06/17/18 19:03 Pulse Ox 100 06/17/18 19:03 - Labs Result Diagrams: 06/17/18 01:22 06/17/18 01:22 Labs: Laboratory Results - last 24 hr 06/16/18 06/16/18 06/17/18 20:38 22:06 01:22 WBC 20.3 H D RBC 3.38 L Hgb 8.9 L Hct 28.5 L MCV 84.3 MCH 26.2 L MCHC 31.1 L RDW 15.5 H Plt Count 517 H MPV 7.6 Neut % (Auto) 82.0 H Lymph % (Auto) 10.3 L Patrick % (Auto) 6.5 Eos % (Auto) 1.0 Baso % (Auto) 0.2 Neut # (Auto) 16.6 H Lymph # (Auto) 2.1 Patrick # (Auto) 1.3 H Eos # (Auto) 0.2 Baso # (Auto) 0.0 Sodium Potassium Chloride Carbon Dioxide Anion Gap BUN Creatinine Est GFR ( Amer) Est GFR (Non-Af Amer) POC Glucose (mg/dL) 118 H Random Glucose Hemoglobin A1c Calcium Phosphorus Magnesium Iron TIBC % Saturation Ferritin Total Bilirubin AST ALT Alkaline Phosphatase Total Protein Albumin Globulin Albumin/Globulin Ratio Vitamin B12 Folate Stool Occult Blood Negative 06/17/18 06/17/18 06/17/18 01:22 01:22 01:22 WBC RBC Hgb Hct MCV MCH MCHC RDW Plt Count MPV Neut % (Auto) Lymph % (Auto) Patrick % (Auto) Eos % (Auto) Baso % (Auto) Neut # (Auto) Lymph # (Auto) Patrick # (Auto) Eos # (Auto) Baso # (Auto) Sodium 136 Potassium 4.6 Chloride 107 Carbon Dioxide 22 Anion Gap 11 BUN 18 H Creatinine 1.1 Est GFR ( Amer) 57 Est GFR (Non-Af Amer) 47 POC Glucose (mg/dL) Random Glucose 130 H Hemoglobin A1c 6.2 Calcium 9.8 Phosphorus 3.6 Magnesium 1.7 Iron TIBC % Saturation Ferritin 13.6 Total Bilirubin 0.3 AST 34 ALT 11 Alkaline Phosphatase 184 H Total Protein 7.6 Albumin 3.4 L Globulin 4.2 H Albumin/Globulin Ratio 0.8 L Vitamin B12 906 Folate > 20.0 Stool Occult Blood 06/17/18 06/17/18 06/17/18 01:22 06:36 12:00 WBC RBC Hgb Hct MCV MCH MCHC RDW Plt Count MPV Neut % (Auto) Lymph % (Auto) Patrick % (Auto) Eos % (Auto) Baso % (Auto) Neut # (Auto) Lymph # (Auto) Patrick # (Auto) Eos # (Auto) Baso # (Auto) Sodium Potassium Chloride Carbon Dioxide Anion Gap BUN Creatinine Est GFR ( Amer) Est GFR (Non-Af Amer) POC Glucose (mg/dL) 159 H 140 H Random Glucose Hemoglobin A1c Calcium Phosphorus Magnesium Iron 21 L TIBC 325 % Saturation 7 L Ferritin Total Bilirubin AST ALT Alkaline Phosphatase Total Protein Albumin Globulin Albumin/Globulin Ratio Vitamin B12 Folate Stool Occult Blood 06/17/18 15:54 WBC RBC Hgb Hct MCV MCH MCHC RDW Plt Count MPV Neut % (Auto) Lymph % (Auto) Patrick % (Auto) Eos % (Auto) Baso % (Auto) Neut # (Auto) Lymph # (Auto) Patrick # (Auto) Eos # (Auto) Baso # (Auto) Sodium Potassium Chloride Carbon Dioxide Anion Gap BUN Creatinine Est GFR ( Amer) Est GFR (Non-Af Amer) POC Glucose (mg/dL) 225 H Random Glucose Hemoglobin A1c Calcium Phosphorus Magnesium Iron TIBC % Saturation Ferritin Total Bilirubin AST ALT Alkaline Phosphatase Total Protein Albumin Globulin Albumin/Globulin Ratio Vitamin B12 Folate Stool Occult Blood Assessment & Plan - Assessment and Plan (Free Text) Assessment: IMP: UTI HYDRONEPHROSIS PELVIC PROLAPSE FRAILTY DIABETES MELLITUS HYPERTENSION FULL NOTE TBD YS - Date & Time Date: 06/17/18 Time: 21:15
[2018-06-18] MEDS: Meropenem 500 MG in Sodium Chloride 0.9% 100 ML IVPB SCH ×3 (01:39→17:19)
--- NOTE | 2018-06-18 03:41 | CON ---
DATE: 06/17/2018 INFECTIOUS DISEASE CONSULTATION REQUESTED BY: Emery Squires DO HISTORY OF PRESENT ILLNESS: This patient is an 82-year-old [place] female who was admitted with hypertension, diabetes, osteoarthritis. She also has a history of hemorrhoids, cystocele, peripheral neuropathy. She has been having off and on hematuria. According to the patient, she has been having burning and increased frequency, every 45 to 50 minutes she has to go to the bathroom. was at the bedside who was saying and she reported that she waited for two weeks as their son recently . Two years back, she also required ureteral stents, and she is following with Dr. Aburto at this time. She is weak and frail but denies any abdominal pain. No headaches. No ear, nose, throat problems. No nausea. No vomiting. Just has urinary symptoms. She suffers from chronic leg pains. I am asked to see her for IV antibiotics for these symptoms of dysuria, frequency and urgency. PAST MEDICAL HISTORY: Significant for hypertension, diabetes, osteoarthritis, hemorrhoids, cystocele, peripheral neuropathy. She had bilateral ureteral stents placed in 02/2017. MEDICATIONS: Gabapentin, enalapril, diabetic medications. ALLERGIES: SHE IS NOT ALLERGIC TO ANY MEDICINES. SOCIAL HISTORY: Negative for smoking or drinking. Her doctor is Dr. Colvin. FAMILY HISTORY: Mother had hypertension. REVIEW OF SYSTEMS: She did not have any fever or chills. Came in with hematuria. No ear, nose, throat problems. No blurred vision. No nasal congestion. No chest pain. She did complain of shortness of breath. She has no abdominal pain, nausea, vomiting or bloating. She does have dysuria, hematuria, or urgency. Denied any urinary incontinence. She did have symptoms and stents in the past. Denies any joint pains or swelling. Does complain of muscle weakness, feeling weak. Denies any psych issues or any neurological other problems except for peripheral neuropathy which is documented. PHYSICAL EXAMINATION: GENERAL: She came in yesterday. She is alert, oriented otherwise. VITAL SIGNS: T-max is 97.3, pulse 75, blood pressure 104/65, respirations are 20. HEENT: Head is atraumatic, normocephalic. Pupils are reacting to light. Mild pallor present. Tongue is moist. NECK: Supple. JVP is flat. CHEST WALL: Symmetrical. No crackles or rales present. HEART: S1 and S2, regular. ABDOMEN: Soft. No guarding, no rigidity present. No CVA tenderness. EXTREMITIES: Have no edema, clubbing or stenosis. LABORATORY DATA: Labs are noted. White count from 6.9 went up to 20.3 today, hemoglobin is 8.9 now, hematocrit 28.5, platelet count is 517. Sodium is 136, potassium 4.6, chloride 107, CO2 is 22, BUN is 18, creatinine is 1.1. LFTs, total protein . B12 is okay. Folate is okay. ASSESSMENT AND PLAN: Cultures, urine has gram-negative rods at this time. I hope they did a urine culture. I will want blood cultures to be done. I looked up last year she did have. We will get blood cultures x2 at this time. I had placed her on meropenem in the past. She has blood cultures now as her white count has gone up from yesterday to today. I noticed that on microbiology she had extended-spectrum beta-lactamase on 04/27/2017 last year, so she may have similar bacteria at this time. We will discontinue the ceftriaxone and continue with meropenem which I had started at 500 mg every 8 hours and we will follow. CAT scan of the abdomen and pelvis was done today which showed re-demonstration of bilateral hydroureteronephrosis to the level of the urinary bladder, re-demonstration of circumferential urinary bladder with thickening with mild perivascular fat infiltration suggestive of cystitis. Recommend correlation with cystoscopy and cytology. She has bilateral hydroureteronephrosis with cystitis, and urology evaluation is pending at this time. We will follow. She is diabetic, hypertensive with severe leukocytosis. We should do a lactic acid level tomorrow and need to give her meropenem at this time and repeat labs in the morning. Albert Lew MD
[2018-06-18 08:00] LABS: BASO % 0.5 % (0.0-2.0); EOS # 0.4 K/uL (0.0-0.7); EOS % 4.5 % (0.0-4.0); HEMOGLOBIN 7.9 g/dL (11.0-16.0); LYMPH % 21.4 % (20.0-40.0); MEAN CELL VOLUME 85.9 fL (81.0-99.0); MEAN CORPUSCULAR HGB CONC 31.4 g/dL (33.0-37.0); MEAN PLATELET VOLUME 7.5 fL (7.2-11.7); MONO % 10.5 % (0.0-10.0); NEUT # 5.8 K/uL (1.8-7.0); NEUT % 63.1 % (50.0-75.0); NRBC % 0.1 % (0.0-2.0); RBC 2.92 Mil/uL (3.80-5.20); RED CELL DISTRIBUTION WIDTH 15.7 % (11.5-14.5)
[2018-06-18] MEDS: (Novolog) Insulin Aspart, Recombinant 100 u/ml 10 ml vial SC SCH ×4 (08:04→22:13)
[2018-06-18 08:05] LABS: WHITE BLOOD COUNT 9.2 K/uL (4.8-10.8)
[2018-06-18 08:46] LABS: ALB/GLOB RATIO 0.8 (1.0-2.1); ALBUMIN 3.1 g/dL (3.5-5.0)
[2018-06-18] MEDS: Lactobacillus Acidophilus 500 MU Cap PO SCH ×2 (09:50→17:18)
--- NOTE | 2018-06-18 12:35 | CP.PCM.PN ---
Subjective - Date & Time of Evaluation Date of Evaluation: 06/18/18 Time of Evaluation: 12:15 - Subjective Subjective: dictated Objective - Vital Signs/Intake and Output Vital Signs (last 24 hours): Temp Pulse Resp BP Pulse Ox 98.5 F 83 20 105/64 97 06/18/18 07:00 06/18/18 07:00 06/18/18 07:00 06/18/18 09:50 06/18/18 07:00 - Medications Medications: Current Medications Dextrose (Dextrose 50% Inj) 0 ml IV STAT PRN; Protocol PRN Reason: Hypoglycemia Protocol Dextrose (Glutose 15) 0 gm PO ONCE PRN; Protocol PRN Reason: Hypoglycemia Protocol Docusate Sodium (Colace) 100 mg PO TID [facility] Last Admin: 06/18/18 09:50 Dose: 100 mg Enalapril Maleate (Vasotec) 5 mg PO DAILY [facility] Last Admin: 06/18/18 09:50 Dose: 5 mg Ferrous Sulfate (Feosol) 325 mg PO DAILY [facility] Last Admin: 06/18/18 09:50 Dose: 325 mg Gabapentin (Neurontin) 100 mg PO HS [facility] Last Admin: 06/17/18 21:34 Dose: 100 mg Glucagon (Glucagen Diagnostic Kit) 0 mg IM STAT PRN; Protocol PRN Reason: Hypoglycemia Protocol Dextrose (Dextrose 5% In Water 1000 Ml) 1,000 mls @ 0 mls/hr IV .Q0M PRN; Protocol PRN Reason: Hypoglycemia Protocol Meropenem 500 mg/ Sodium (Chloride) 100 mls @ 100 mls/hr IVPB Q8H [facility]; Protocol Last Admin: 06/18/18 09:50 Dose: 100 mls/hr Insulin Aspart (Novolog) 0 unit SC ACHS [facility]; Protocol Last Admin: 06/18/18 08:04 Dose: Not Given Lactobacillus Acidophilus (Lactobacillus) 1 cap PO BID [facility] Last Admin: 06/18/18 09:50 Dose: 1 cap - Labs Labs: 06/18/18 07:52 06/18/18 07:52
--- NOTE | 2018-06-18 13:24 | CP.PCM.PN ---
<LetaRoyce - Last Filed: 06/18/18 13:27> Subjective - Date & Time of Evaluation Date of Evaluation: 06/18/18 Time of Evaluation: 13:22 - Subjective Subjective: HOSPITALIST SERVICE Pt s/e at bedside, reports persistent complaints of urinary frequency and back pain, however improving. Denies CP SOB FC NV at this time, denies any hematuria. Objective - Vital Signs/Intake and Output Vital Signs (last 24 hours): Temp Pulse Resp BP Pulse Ox 98.5 F 83 20 105/64 97 06/18/18 07:00 06/18/18 07:00 06/18/18 07:00 06/18/18 09:50 06/18/18 07:00 - Medications Medications: Current Medications Dextrose (Dextrose 50% Inj) 0 ml IV STAT PRN; Protocol PRN Reason: Hypoglycemia Protocol Dextrose (Glutose 15) 0 gm PO ONCE PRN; Protocol PRN Reason: Hypoglycemia Protocol Docusate Sodium (Colace) 100 mg PO TID [facility] Last Admin: 06/18/18 13:14 Dose: 100 mg Enalapril Maleate (Vasotec) 5 mg PO DAILY [facility] Last Admin: 06/18/18 09:50 Dose: 5 mg Ferrous Sulfate (Feosol) 325 mg PO DAILY [facility] Last Admin: 06/18/18 09:50 Dose: 325 mg Gabapentin (Neurontin) 100 mg PO HS [facility] Last Admin: 06/17/18 21:34 Dose: 100 mg Glucagon (Glucagen Diagnostic Kit) 0 mg IM STAT PRN; Protocol PRN Reason: Hypoglycemia Protocol Dextrose (Dextrose 5% In Water 1000 Ml) 1,000 mls @ 0 mls/hr IV .Q0M PRN; Protocol PRN Reason: Hypoglycemia Protocol Meropenem 500 mg/ Sodium (Chloride) 100 mls @ 100 mls/hr IVPB Q8H [facility]; Protocol Last Admin: 06/18/18 09:50 Dose: 100 mls/hr Insulin Aspart (Novolog) 0 unit SC ACHS [facility]; Protocol Last Admin: 06/18/18 12:41 Dose: 1 unit Lactobacillus Acidophilus (Lactobacillus) 1 cap PO BID [facility] Last Admin: 06/18/18 09:50 Dose: 1 cap - Labs Labs: 06/18/18 07:52 06/18/18 07:52 - Additional Findings Additional findings: - Constitutional Appears: Non-toxic, No Acute Distress - Head Exam Head Exam: ATRAUMATIC, NORMAL INSPECTION, NORMOCEPHALIC - Eye Exam Eye Exam: EOMI, Normal appearance, PERRL Pupil Exam: NORMAL ACCOMODATION - ENT Exam ENT Exam: Mucous Membranes Moist - Neck Exam Neck exam: Positive for: Full Rom. Negative for: Tenderness - Respiratory Exam Respiratory Exam: Clear to Auscultation Bilateral, NORMAL BREATHING PATTERN. absent: Rhonchi, Wheezes - Cardiovascular Exam Cardiovascular Exam: +S1, +S2. 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 Negative for: calf tenderness, pedal edema Additional comments: tenderness on slight palpation - Back Exam Back exam: Poistive: CVA tenderness (L), CVA tenderness (R) - Neurological Exam Neurological exam: Alert, Oriented x3 - Psychiatric Exam Psychiatric exam: Normal Affect, Normal Mood - Skin Skin Exam: Dry, Intact, Normal Color, Warm Assessment and Plan - Assessment and Plan (Free Text) Plan: 82 F w/ PMhx of HTN, DM, UTIs, peripheral neuropathy, presents w/ hematuria X 2 weeks, UA indicative of UTI Plan: Pyelonephritis, UTI - afebrile, WBC wnl - UA: 3+ leuk esterase, 3814 WBC, 247 RBC - gram neg rods on UC - Merrem 500 q8 IV - actobaccilus 1 cap PO BID - F/u uro Dr Aburto recs - CT shows bilateral hydronephrosis - ID Dr Lew consulted f/u recs Merrem started on 06/17 Anemia - hgb 7.9, previous hgb in 9-10s - likely due to hematuria - stool occult performed due to pt history of hemorrhoids & blood stools - stool occult negative - transfuse PRN - Low Iron, ferritin, reticulocyte count, TIBC - Feosol BID Uternine Prolapse - Dr Aburto consulted, f/u recs History of Hypertension - c/w home medication enalipril 5 mg daily History of diabetes - pt unsure of home medication - HgA1C wnl - ISS low - Accuchecks ACHS - hypoglycemia protocol History of peripheral neuropathy - Likely secondary to long standing diabetes - HgA1C, B12, Folate wnl - c/w home medication gabapentin 100 mg HS PPx: - DVT: VTE contraindicated due to hematuria - NPO Past midnight for possible uro procedure <Maciel Pandya - Last Filed: 06/18/18 15:17> Objective - Vital Signs/Intake and Output Vital Signs (last 24 hours): Temp Pulse Resp BP Pulse Ox 98.5 F 83 20 105/64 97 06/18/18 07:00 06/18/18 07:00 06/18/18 07:00 06/18/18 09:50 06/18/18 07:00 - Medications Medications: Current Medications Dextrose (Dextrose 50% Inj) 0 ml IV STAT PRN; Protocol PRN Reason: Hypoglycemia Protocol Dextrose (Glutose 15) 0 gm PO ONCE PRN; Protocol PRN Reason: Hypoglycemia Protocol Docusate Sodium (Colace) 100 mg PO TID [facility] Last Admin: 06/18/18 13:14 Dose: 100 mg Enalapril Maleate (Vasotec) 5 mg PO DAILY [facility] Last Admin: 06/18/18 09:50 Dose: 5 mg Ferrous Sulfate (Feosol) 325 mg PO DAILY [facility] Last Admin: 06/18/18 09:50 Dose: 325 mg Gabapentin (Neurontin) 100 mg PO HS [facility] Last Admin: 06/17/18 21:34 Dose: 100 mg Glucagon (Glucagen Diagnostic Kit) 0 mg IM STAT PRN; Protocol PRN Reason: Hypoglycemia Protocol Dextrose (Dextrose 5% In Water 1000 Ml) 1,000 mls @ 0 mls/hr IV .Q0M PRN; Protocol PRN Reason: Hypoglycemia Protocol Meropenem 500 mg/ Sodium (Chloride) 100 mls @ 100 mls/hr IVPB Q8H [facility]; Protocol Last Admin: 06/18/18 09:50 Dose: 100 mls/hr Insulin Aspart (Novolog) 0 unit SC ACHS [facility]; Protocol Last Admin: 06/18/18 12:41 Dose: 1 unit Lactobacillus Acidophilus (Lactobacillus) 1 cap PO BID [facility] Last Admin: 06/18/18 09:50 Dose: 1 cap - Labs Labs: 06/18/18 07:52 06/18/18 07:52 Attending/Attestation - Attestation I have personally seen and examined this patient.: Yes I have fully participated in the care of the patient.: Yes I have reviewed all pertinent clinical information, including history, physical exam and plan: Yes Notes (Text): Pyelonephritis, UTI
--- NOTE | 2018-06-18 13:58 | PN ---
DATE: 06/18/2018 INFECTIOUS DISEASE FOLLOWUP NOTE SUBJECTIVE: The patient says she is feeling better. She still has some suprapubic pain. She just voided urine, which was clear. No gross hematuria noted. PHYSICAL EXAMINATION: VITAL SIGNS: T-max is 98.5. She is frail. Pulse is 83, blood pressure 97/55, repeated now was 105/64, respirations are 20. HEAD: Atraumatic, normocephalic. NECK: Supple. LUNGS: Clear. HEART: S1, S2, regular. ABDOMEN: Soft, nontender. Mild suprapubic pain, she complains of. EXTREMITIES: No edema, clubbing, or cyanosis. LABORATORY DATA: Her white count which was 20.3 is 9.2 today, hemoglobin is 7.9, hematocrit 25.1, platelet count is 484. Chemistry shows BUN is 15, creatinine is 1.1. Creatinine improved and so did the white count at this time. Micro guy, her urine has E. coli which is very sensitive but she was not responding to Rocephin which was on before, hence we will leave her on this medication for now. Once she is more stable and Urology has a plan, then we will change it to de-escalate, however. IMPRESSION: She has cystitis. She has hydronephrosis. She also has cystocele, pelvic prolapse, diabetes, and is hypertensive. PLAN: Continue IV fluids as well as meropenem at this time. We will follow. Actually, I will be away, I will endorse this patient to Dr. Valdez and he will follow. Albert Lew MD
--- NOTE | 2018-06-18 18:46 | PCM.URO ---
Urology Progress Note - General General: Tolerating Diet - Subjective Abdominal Pain: Yes Flank Pain: No Voiding Well: No (INCONTINENT) Hematuria: No Good Stream: No Fever & Chills: No - Objective Lab Studies: Reviewed (URINE C&S: E.COLI) Lab Results Last 24 Hours: Laboratory Results - last 24 hr 06/17/18 06/18/18 06/18/18 21:14 06:45 07:52 WBC 9.2 D RBC 2.92 L Hgb 7.9 L Hct 25.1 L MCV 85.9 MCH 27.0 MCHC 31.4 L RDW 15.7 H Plt Count 484 H MPV 7.5 Neut % (Auto) 63.1 Lymph % (Auto) 21.4 [place] % (Auto) 10.5 H Eos % (Auto) 4.5 H Baso % (Auto) 0.5 Neut # (Auto) 5.8 Lymph # (Auto) 2.0 [place] # (Auto) 1.0 H Eos # (Auto) 0.4 Baso # (Auto) 0.0 Sodium Potassium Chloride Carbon Dioxide Anion Gap BUN Creatinine Est GFR ( Amer) Est GFR (Non-Af Amer) POC Glucose (mg/dL) 123 H 96 Random Glucose Lactic Acid Calcium Phosphorus Magnesium Total Bilirubin AST ALT Alkaline Phosphatase Total Protein Albumin Globulin Albumin/Globulin Ratio 06/18/18 06/18/18 06/18/18 07:52 07:52 11:42 WBC RBC Hgb Hct MCV MCH MCHC RDW Plt Count MPV Neut % (Auto) Lymph % (Auto) [place] % (Auto) Eos % (Auto) Baso % (Auto) Neut # (Auto) Lymph # (Auto) [place] # (Auto) Eos # (Auto) Baso # (Auto) Sodium 138 Potassium 4.7 Chloride 108 H Carbon Dioxide 24 Anion Gap 11 BUN 15 Creatinine 1.1 Est GFR ( Amer) 57 Est GFR (Non-Af Amer) 47 POC Glucose (mg/dL) 159 H Random Glucose 98 D Lactic Acid 0.9 Calcium 9.0 Phosphorus 3.8 Magnesium 1.8 Total Bilirubin 0.2 AST 29 ALT 13 Alkaline Phosphatase 132 H D Total Protein 6.8 Albumin 3.1 L Globulin 3.7 Albumin/Globulin Ratio 0.8 L 06/18/18 16:06 WBC RBC Hgb Hct MCV MCH MCHC RDW Plt Count MPV Neut % (Auto) Lymph % (Auto) [place] % (Auto) Eos % (Auto) Baso % (Auto) Neut # (Auto) Lymph # (Auto) [place] # (Auto) Eos # (Auto) Baso # (Auto) Sodium Potassium Chloride Carbon Dioxide Anion Gap BUN Creatinine Est GFR ( Amer) Est GFR (Non-Af Amer) POC Glucose (mg/dL) 106 Random Glucose Lactic Acid Calcium Phosphorus Magnesium Total Bilirubin AST ALT Alkaline Phosphatase Total Protein Albumin Globulin Albumin/Globulin Ratio Intake & Output: Intake & Output 06/17/18 06/18/18 06/18/18 18:59 06:59 18:59 Intake Total 50 Balance 50 Intake: Oral 50 Other: # Voids Urine, Voided 3 1 Vital Signs: Vital Signs - 24 hr 06/17/18 06/18/18 06/18/18 19:03 00:00 07:00 Temperature 97.3 F L 97.9 F 98.5 F Pulse Rate 75 97 H 83 Respiratory 20 18 20 Rate Blood Pressure 104/65 107/67 97/55 L O2 Sat by Pulse 100 99 97 Oximetry 06/18/18 06/18/18 09:50 15:00 Temperature 98.0 F Pulse Rate 96 H Respiratory 20 Rate Blood Pressure 105/64 95/55 L O2 Sat by Pulse 99 Oximetry Imaging Studies: Reviewed (CT SCAN REVEALS BILAT HYDROURTRONEPHROSIS BLADDER IS DISTENDED WELL) - Physical Exam Abdominal Exam: Soft, Non-Tender, Non-Distended Back: No CVA Tenderness Extremities: Normal: Bilateral - Plan See Orders: Yes (BLADDER SCAN, CULTURE) Additional Information: IMP: UTI, W E.COLI. HYDRONEPHROSIS. PELVIC PROLAPSE. FULL BLADDER ON CT. HYPERTENSION, DM - Date & Time of Note Date: 06/18/18 Time: 18:46
[2018-06-19] MEDS: Meropenem 500 MG in Sodium Chloride 0.9% 100 ML IVPB SCH ×3 (01:06→17:18)
--- NOTE | 2018-06-19 04:16 | CP.PCM.PN ---
<Mallika Aj - Last Filed: 06/19/18 06:19> Subjective - Date & Time of Evaluation Date of Evaluation: 06/19/18 Time of Evaluation: 06:15 - Subjective Subjective: Patient examined at bedside. No acute overnight events. Patient is restless in bed. Denies complaints including chest pain, SOB, nausea. Objective - Vital Signs/Intake and Output Vital Signs (last 24 hours): Temp Pulse Resp BP Pulse Ox 99.0 F 103 H 20 113/60 98 06/18/18 23:00 06/18/18 23:00 06/18/18 23:00 06/18/18 23:00 06/18/18 23:00 - Medications Medications: Current Medications Dextrose (Dextrose 50% Inj) 0 ml IV STAT PRN; Protocol PRN Reason: Hypoglycemia Protocol Dextrose (Glutose 15) 0 gm PO ONCE PRN; Protocol PRN Reason: Hypoglycemia Protocol Docusate Sodium (Colace) 100 mg PO TID [facility] Last Admin: 06/18/18 17:18 Dose: 100 mg Enalapril Maleate (Vasotec) 5 mg PO DAILY [facility] Last Admin: 06/18/18 09:50 Dose: 5 mg Ferrous Sulfate (Feosol) 325 mg PO DAILY [facility] Last Admin: 06/18/18 09:50 Dose: 325 mg Gabapentin (Neurontin) 100 mg PO HS [facility] Last Admin: 06/18/18 22:06 Dose: 100 mg Glucagon (Glucagen Diagnostic Kit) 0 mg IM STAT PRN; Protocol PRN Reason: Hypoglycemia Protocol Dextrose (Dextrose 5% In Water 1000 Ml) 1,000 mls @ 0 mls/hr IV .Q0M PRN; Protocol PRN Reason: Hypoglycemia Protocol Meropenem 500 mg/ Sodium (Chloride) 100 mls @ 100 mls/hr IVPB Q8H [facility]; Protocol Last Admin: 06/19/18 01:06 Dose: 100 mls/hr Insulin Aspart (Novolog) 0 unit SC ACHS [facility]; Protocol Last Admin: 06/18/18 22:13 Dose: Not Given Lactobacillus Acidophilus (Lactobacillus) 1 cap PO BID [facility] Last Admin: 06/18/18 17:18 Dose: 1 cap - Labs Labs: 06/18/18 07:52 06/18/18 07:52 - Constitutional Appears: Non-toxic, No Acute Distress, Other (restless) - Head Exam Head Exam: ATRAUMATIC, NORMAL INSPECTION, NORMOCEPHALIC - Eye Exam Eye Exam: EOMI, Normal appearance - ENT Exam ENT Exam: Mucous Membranes Moist, Normal Exam - Neck Exam Neck Exam: Normal Inspection - Respiratory Exam Respiratory Exam: Clear to Ausculation Bilateral, NORMAL BREATHING PATTERN - Cardiovascular Exam Cardiovascular Exam: REGULAR RHYTHM, +S1, +S2. absent: Tachycardia - GI/Abdominal Exam GI & Abdominal Exam: Soft, Normal Bowel Sounds. absent: Distended, Tenderness - Exam Additional comments: Patient has adult diaper on with towel inside - Extremities Exam Extremities Exam: Normal Inspection. absent: Calf Tenderness, Pedal Edema - Neurological Exam Neurological Exam: Alert, Awake - Psychiatric Exam Psychiatric exam: Flat Affect - Skin Skin Exam: Dry, Intact, Normal Color, Warm Assessment and Plan - Assessment and Plan (Free Text) Assessment: 82 year old female w/ PMHx of HTN, DM2, recurrent UTIs, peripheral neuropathy admitted for treatment of cystitis Plan: Cystitis/UTI CT A/P: B/L hydroureteronephrosis to bladder. Bladder wall thickening w/ perivesicular fat stranding suggestive of cystitis Urine cx(06/16): positive for E.Coli UA: hematuria Merrem 500mg q8(06/17) Uro consult, Dr. Aburto ID consult, Dr. Lew HTN continue home enalapril 5mg po qd Anemia ferrous sulfate 325mg po qd DM2 accuchecks ISS hypoglycemia protocol continue home gabapentin 100mg po hs for neuropathy Ppx VTE: SCDs, AC contraindicated 2/2 hematuria GI: lactobacillus Vegan diet -Mallika Aj, PGY-1 <Tho Ward - Last Filed: 06/20/18 16:31> Objective - Vital Signs/Intake and Output Vital Signs (last 24 hours): Temp Pulse Resp BP Pulse Ox 97.8 F 101 H 20 116/75 96 06/20/18 08:30 06/20/18 08:30 06/20/18 08:30 06/20/18 10:04 06/20/18 08:30 - Medications Medications: Current Medications Acetaminophen (Tylenol 325mg Tab) 650 mg PO Q6 PRN PRN Reason: Fever >100.4 F Last Admin: 06/20/18 14:20 Dose: 650 mg Dextrose (Dextrose 50% Inj) 0 ml IV STAT PRN; Protocol PRN Reason: Hypoglycemia Protocol Dextrose (Glutose 15) 0 gm PO ONCE PRN; Protocol PRN Reason: Hypoglycemia Protocol Docusate Sodium (Colace) 100 mg PO TID [facility] Last Admin: 06/20/18 13:27 Dose: Not Given Enalapril Maleate (Vasotec) 5 mg PO DAILY [facility] Last Admin: 06/20/18 10:04 Dose: 5 mg Ferrous Sulfate (Feosol) 325 mg PO DAILY [facility] Last Admin: 06/20/18 10:04 Dose: 325 mg Gabapentin (Neurontin) 100 mg PO HS [facility] Last Admin: 06/19/18 21:29 Dose: 100 mg Glucagon (Glucagen Diagnostic Kit) 0 mg IM STAT PRN; Protocol PRN Reason: Hypoglycemia Protocol Dextrose (Dextrose 5% In Water 1000 Ml) 1,000 mls @ 0 mls/hr IV .Q0M PRN; Protocol PRN Reason: Hypoglycemia Protocol Meropenem 500 mg/ Sodium (Chloride) 100 mls @ 100 mls/hr IVPB Q8H [facility]; Protocol Last Admin: 06/20/18 10:04 Dose: 100 mls/hr Insulin Aspart (Novolog) 0 unit SC ACHS [facility]; Protocol Last Admin: 06/20/18 13:00 Dose: Not Given Lactobacillus Acidophilus (Lactobacillus) 1 cap PO BID [facility] Last Admin: 06/20/18 10:04 Dose: 1 cap - Labs Labs: 06/20/18 09:32 06/20/18 09:32 Attending/Attestation - Attestation I have personally seen and examined this patient.: Yes I have fully participated in the care of the patient.: Yes I have reviewed all pertinent clinical information, including history, physical exam and plan: Yes Notes (Text): Patient with hematuria,hydronephrosis due to pelvic prolapse,history of urinary stent and incontinent of urine is here for hematuria and UTI. On Merrem continue antibiotics,follow urologist and [employer]
[2018-06-19 06:43] LABS: BASO % 0.4 % (0.0-2.0); EOS # 0.2 K/uL (0.0-0.7); EOS % 2.6 % (0.0-4.0); HEMOGLOBIN 8.1 g/dL (11.0-16.0); LYMPH # 1.6 K/uL (1.0-4.3); LYMPH % 17.1 % (20.0-40.0); MEAN CELL VOLUME 84.1 fL (81.0-99.0); MEAN CORPUSCULAR HGB CONC 32.1 g/dL (33.0-37.0); MEAN PLATELET VOLUME 7.3 fL (7.2-11.7); MONO # 0.8 K/uL (0.0-0.8); MONO % 9.1 % (0.0-10.0); NEUT # 6.5 K/uL (1.8-7.0); NEUT % 70.8 % (50.0-75.0); NRBC % 0.1 % (0.0-2.0); RBC 3.01 Mil/uL (3.80-5.20); RED CELL DISTRIBUTION WIDTH 15.3 % (11.5-14.5); WHITE BLOOD COUNT 9.1 K/uL (4.8-10.8)
[2018-06-19 07:26] LABS: ALB/GLOB RATIO 0.8 (1.0-2.1); ALT/SGPT < 6 U/L (9-52); AST/SGOT 24 U/L (14-36); BLOOD UREA NITROGEN 15 mg/dL (7-17); GFR NON-AFRICAN AMERICAN 47
[2018-06-19] MEDS: (Novolog) Insulin Aspart, Recombinant 100 u/ml 10 ml vial SC SCH ×4 (07:37→21:26)
[2018-06-19] MEDS: Lactobacillus Acidophilus 500 MU Cap PO SCH ×2 (09:32→17:19)
[2018-06-20] MEDS: Meropenem 500 MG in Sodium Chloride 0.9% 100 ML IVPB SCH ×3 (00:01→17:45)
--- NOTE | 2018-06-20 07:19 | CP.PCM.PN ---
<Mallika Aj - Last Filed: 06/20/18 07:22> Subjective - Date & Time of Evaluation Date of Evaluation: 06/20/18 Time of Evaluation: 07:20 - Subjective Subjective: Patient examined at bedside. Pt febrile overnight at 102.1, given tylenol with resolution. Pt denies complaints, reports she has no pain, is breathing well, no nausea. Objective - Vital Signs/Intake and Output Vital Signs (last 24 hours): Temp Pulse Resp BP Pulse Ox 98.3 F 118 H 20 115/55 L 97 06/20/18 00:56 06/20/18 00:00 06/20/18 00:00 06/20/18 00:00 06/20/18 00:00 - Medications Medications: Current Medications Acetaminophen (Tylenol 325mg Tab) 650 mg PO Q6 PRN PRN Reason: Fever >100.4 F Last Admin: 06/19/18 23:56 Dose: 650 mg Dextrose (Dextrose 50% Inj) 0 ml IV STAT PRN; Protocol PRN Reason: Hypoglycemia Protocol Dextrose (Glutose 15) 0 gm PO ONCE PRN; Protocol PRN Reason: Hypoglycemia Protocol Docusate Sodium (Colace) 100 mg PO TID [facility] Last Admin: 06/19/18 17:19 Dose: 100 mg Enalapril Maleate (Vasotec) 5 mg PO DAILY [facility] Last Admin: 06/19/18 09:32 Dose: 5 mg Ferrous Sulfate (Feosol) 325 mg PO DAILY [facility] Last Admin: 06/19/18 09:32 Dose: 325 mg Gabapentin (Neurontin) 100 mg PO HS [facility] Last Admin: 06/19/18 21:29 Dose: 100 mg Glucagon (Glucagen Diagnostic Kit) 0 mg IM STAT PRN; Protocol PRN Reason: Hypoglycemia Protocol Dextrose (Dextrose 5% In Water 1000 Ml) 1,000 mls @ 0 mls/hr IV .Q0M PRN; Protocol PRN Reason: Hypoglycemia Protocol Meropenem 500 mg/ Sodium (Chloride) 100 mls @ 100 mls/hr IVPB Q8H [facility]; Protocol Last Admin: 06/20/18 00:01 Dose: 100 mls/hr Insulin Aspart (Novolog) 0 unit SC ACHS [facility]; Protocol Last Admin: 06/19/18 21:26 Dose: Not Given Lactobacillus Acidophilus (Lactobacillus) 1 cap PO BID [facility] Last Admin: 06/19/18 17:19 Dose: 1 cap - Labs Labs: 06/19/18 06:35 06/19/18 06:35 - Additional Findings Additional findings: - Constitutional Appears: Non-toxic, No Acute Distress, Other (restless) - Head Exam Head Exam: ATRAUMATIC, NORMAL INSPECTION, NORMOCEPHALIC - Eye Exam Eye Exam: EOMI, Normal appearance - ENT Exam ENT Exam: Mucous Membranes Moist, Normal Exam - Neck Exam Neck Exam: Normal Inspection - Respiratory Exam Respiratory Exam: Clear to Ausculation Bilateral, NORMAL BREATHING PATTERN - Cardiovascular Exam Cardiovascular Exam: REGULAR RHYTHM, +S1, +S2. absent: Tachycardia - GI/Abdominal Exam GI & Abdominal Exam: Soft, Normal Bowel Sounds. absent: Distended, Tenderness - Exam Additional comments: Patient has adult diaper on with towel inside - Extremities Exam Extremities Exam: Normal Inspection. absent: Calf Tenderness, Pedal Edema - Neurological Exam Neurological Exam: Alert, Awake - Psychiatric Exam Psychiatric exam: Flat Affect - Skin Skin Exam: Dry, Intact, Normal Color, Warm Assessment and Plan - Assessment and Plan (Free Text) Assessment: 82 year old female w/ PMHx of HTN, DM2, recurrent UTIs, peripheral neuropathy admitted for treatment of cystitis Plan: Cystitis/UTI CT A/P: B/L hydroureteronephrosis to bladder. Bladder wall thickening w/ pe rivesicular fat stranding suggestive of cystitis Urine cx(06/16): positive for E.Coli UA: hematuria Merrem 500mg q8(06/17) Tylenol 650mg q6 prn fevers Uro consult, Dr. Aburto ID consult, Dr. Lew HTN continue home enalapril 5mg po qd Anemia ferrous sulfate 325mg po qd DM2 accuchecks ISS hypoglycemia protocol continue home gabapentin 100mg po hs for neuropathy Ppx VTE: SCDs, AC contraindicated 2/2 hematuria GI: lactobacillus Vegan diet -Mallika Aj, PGY-1 <Tho Ward - Last Filed: 06/20/18 16:28> Objective - Vital Signs/Intake and Output Vital Signs (last 24 hours): Temp Pulse Resp BP Pulse Ox 97.8 F 101 H 20 116/75 96 06/20/18 08:30 06/20/18 08:30 06/20/18 08:30 06/20/18 10:04 06/20/18 08:30 - Medications Medications: Current Medications Acetaminophen (Tylenol 325mg Tab) 650 mg PO Q6 PRN PRN Reason: Fever >100.4 F Last Admin: 06/20/18 14:20 Dose: 650 mg Dextrose (Dextrose 50% Inj) 0 ml IV STAT PRN; Protocol PRN Reason: Hypoglycemia Protocol Dextrose (Glutose 15) 0 gm PO ONCE PRN; Protocol PRN Reason: Hypoglycemia Protocol Docusate Sodium (Colace) 100 mg PO TID [facility] Last Admin: 06/20/18 13:27 Dose: Not Given Enalapril Maleate (Vasotec) 5 mg PO DAILY [facility] Last Admin: 06/20/18 10:04 Dose: 5 mg Ferrous Sulfate (Feosol) 325 mg PO DAILY [facility] Last Admin: 06/20/18 10:04 Dose: 325 mg Gabapentin (Neurontin) 100 mg PO HS [facility] Last Admin: 06/19/18 21:29 Dose: 100 mg Glucagon (Glucagen Diagnostic Kit) 0 mg IM STAT PRN; Protocol PRN Reason: Hypoglycemia Protocol Dextrose (Dextrose 5% In Water 1000 Ml) 1,000 mls @ 0 mls/hr IV .Q0M PRN; Protocol PRN Reason: Hypoglycemia Protocol Meropenem 500 mg/ Sodium (Chloride) 100 mls @ 100 mls/hr IVPB Q8H [facility]; Protocol Last Admin: 06/20/18 10:04 Dose: 100 mls/hr Insulin Aspart (Novolog) 0 unit SC ACHS [facility]; Protocol Last Admin: 06/20/18 13:00 Dose: Not Given Lactobacillus Acidophilus (Lactobacillus) 1 cap PO BID [facility] Last Admin: 06/20/18 10:04 Dose: 1 cap - Labs Labs: 06/20/18 09:32 06/20/18 09:32 Attending/Attestation - Attestation I have personally seen and examined this patient.: Yes I have fully participated in the care of the patient.: Yes I have reviewed all pertinent clinical information, including history, physical exam and plan: Yes Notes (Text): seen and examined this morning. Patient had fever 102 F last night. she was having chills. Blood culture drawn this morning. continue Merrem,follow cultures spoke to her and daughter on law. spoke to Dr Aburto. bladdr scan today 127ml,not retaining we will follow granulating blender DR Hernandez for possible hysterectomy or repair of prolapse Patient lost her son last month due to lung cancer.
[2018-06-20] MEDS: (Novolog) Insulin Aspart, Recombinant 100 u/ml 10 ml vial SC SCH ×4 (08:55→21:45)
[2018-06-20 09:38] LABS: BASO % 0.5 % (0.0-2.0); EOS # 0.1 K/uL (0.0-0.7); EOS % 0.5 % (0.0-4.0); HEMOGLOBIN 8.9 g/dL (11.0-16.0); LYMPH # 2.3 K/uL (1.0-4.3); LYMPH % 21.5 % (20.0-40.0); MEAN CELL VOLUME 85.4 fL (81.0-99.0); MEAN CORPUSCULAR HEMOGLOBIN 28.8 pg (27.0-31.0); MEAN CORPUSCULAR HGB CONC 33.7 g/dL (33.0-37.0); MEAN PLATELET VOLUME 7.4 fL (7.2-11.7); MONO # 0.9 K/uL (0.0-0.8); MONO % 8.1 % (0.0-10.0); NEUT # 7.3 K/uL (1.8-7.0); NEUT % 69.4 % (50.0-75.0); RBC 3.1 Mil/uL (3.80-5.20); RED CELL DISTRIBUTION WIDTH 15.8 % (11.5-14.5); WHITE BLOOD COUNT 10.5 K/uL (4.8-10.8)
[2018-06-20 09:53] LABS: ALB/GLOB RATIO 0.9 (1.0-2.1); ALBUMIN 3.3 g/dL (3.5-5.0)
[2018-06-20] MEDS: Lactobacillus Acidophilus 500 MU Cap PO SCH ×2 (10:04→18:09)
[2018-06-21] MEDS: Meropenem 500 MG in Sodium Chloride 0.9% 100 ML IVPB SCH ×3 (00:05→18:02)
--- NOTE | 2018-06-21 03:34 | CON ---
DATE: 06/17/2018 UROLOGY CONSULTATION CONSULT REQUESTED BY: Dr. Squires. CONSULT FILLED BY: Eun Aburto MD REASON FOR CONSULTATION: Urinary tract infection. The patient is an 82-year-old female with urinary tract infection. The patient has history of recurrent urinary tract infection. The patient has history of pelvic prolapse. She has history of bilateral hydronephrosis. The patient has been previously treated with cystoscopy and stent insertion. There is history of hypertension. There is history of diabetes. The patient has had a lower abdominal pain. She has had urinary incontinence. No recent hematuria. The patient voids mostly in a diaper. She at times does void in the bathroom. The patient previously had seen two gynecologists regarding treatment for her pelvic prolapse. There has been no surgical treatment as of yet nor a firm decision as to future plans. The patient has been generally feeling weak and debilitated. The patient has fair appetite. The patient has no recent weight loss, although she is thin. No recent chest pain. No recent nausea or vomiting. The patient does have shortness of breath. PHYSICAL EXAMINATION: GENERAL: The patient is a well-developed, well-nourished elderly female. The patient is awake. She is conversant. ABDOMEN: Soft, nondistended. There is mild suprapubic tenderness. BACK: No CVA tenderness. LABORATORY DATA: Hematocrit 25, platelet count 463,000. White blood count 6900. BUN 19, creatinine 1. Urinalysis reveals cloudy urine, many WBC with clumps. 3+ leukocyte esterase. IMPRESSION: Urinary tract infection. Diabetes. Hypertension. History of cystocele and pelvic prolapse. History of hydronephrosis. PLAN AND RECOMMENDATIONS: Urine culture. Antibiotic therapy. CT scan. Possible need for further urologic instrumentation. I will discuss the findings with you as well with the patient and her family. Thank you for recommending the patient for urology consultation. Eun Aburto MD cc: Dr. Squires,
[2018-06-21] MEDS: (Novolog) Insulin Aspart, Recombinant 100 u/ml 10 ml vial SC SCH ×4 (07:34→21:47)
[2018-06-21 07:36] LABS: SQUAMOUS EPITHIAL 3 /hpf (0-5); URINE BACTERIA RARE (<OCC); URINE BILIRUBIN NEGATIVE (NEGATIVE); URINE BLOOD 1+ (NEGATIVE); URINE CLARITY Clear (Clear); URINE COLOR Yellow (YELLOW); URINE GLUCOSE (UA) NORMAL (Normal); URINE LEUKOCYTE ESTERASE 3+ Leu/uL (Negative); URINE PROTEIN NEGATIVE (NEGATIVE); URINE UROBILINOGEN NORMAL mg/dL (0.2-1.0)
[2018-06-21 08:22] LABS: BASO % 0.7 % (0.0-2.0); EOS % 0.2 % (0.0-4.0); LYMPH # 2.7 K/uL (1.0-4.3); LYMPH % 37.4 % (20.0-40.0); MEAN CELL VOLUME 84.7 fL (81.0-99.0); MEAN CORPUSCULAR HEMOGLOBIN 28.2 pg (27.0-31.0); MEAN CORPUSCULAR HGB CONC 33.3 g/dL (33.0-37.0); MEAN PLATELET VOLUME 7.3 fL (7.2-11.7); MONO # 0.9 K/uL (0.0-0.8); MONO % 13.1 % (0.0-10.0); NEUT # 3.5 K/uL (1.8-7.0); NEUT % 48.6 % (50.0-75.0); NRBC % 0.1 % (0.0-2.0); RBC 2.83 Mil/uL (3.80-5.20); RED CELL DISTRIBUTION WIDTH 15.8 % (11.5-14.5); WHITE BLOOD COUNT 7.2 K/uL (4.8-10.8)
[2018-06-21 08:40] LABS: ALB/GLOB RATIO 0.8 (1.0-2.1); ALBUMIN 2.9 g/dL (3.5-5.0); ALT/SGPT < 6 U/L (9-52); AST/SGOT 38 U/L (14-36); BLOOD UREA NITROGEN 15 mg/dL (7-17); CALCIUM 8.5 mg/dl (8.6-10.4); GFR NON-AFRICAN AMERICAN 43
--- NOTE | 2018-06-21 09:32 | CP.PCM.PN ---
<Lenora Butt Y - Last Filed: 06/21/18 20:15> Subjective - Date & Time of Evaluation Date of Evaluation: 06/21/18 Time of Evaluation: 09:30 - Subjective Subjective: PGY-1 Medicine Progress note for Dr. Nelson Patient was seen and examined sitting in chair OOB with son at bedside in no acute distress. Nurse reports overnight fever, Tmax 101.9, controlled with Tylenol. Patient has no acute complaints. Denies chest pain, palpitations, abdominal pain, shortness of breath, headache, nausea, vomiting. Still complains of burning on urination. Objective - Vital Signs/Intake and Output Vital Signs (last 24 hours): Temp Pulse Resp BP Pulse Ox 97.8 F 99 H 20 90/46 L 97 06/21/18 08:00 06/21/18 08:00 06/21/18 08:00 06/21/18 08:00 06/21/18 08:00 Intake and Output: 06/21/18 06/21/18 06:59 18:59 Intake Total 200 120 Balance 200 120 - Medications Medications: Current Medications Acetaminophen (Tylenol 325mg Tab) 650 mg PO Q6 PRN PRN Reason: Fever >100.4 F Last Admin: 06/21/18 00:00 Dose: 650 mg Dextrose (Dextrose 50% Inj) 0 ml IV STAT PRN; Protocol PRN Reason: Hypoglycemia Protocol Dextrose (Glutose 15) 0 gm PO ONCE PRN; Protocol PRN Reason: Hypoglycemia Protocol Docusate Sodium (Colace) 100 mg PO TID [facility] Last Admin: 06/20/18 18:09 Dose: 100 mg Enalapril Maleate (Vasotec) 5 mg PO DAILY [facility] Last Admin: 06/20/18 10:04 Dose: 5 mg Ferrous Sulfate (Feosol) 325 mg PO DAILY [facility] Last Admin: 06/20/18 10:04 Dose: 325 mg Gabapentin (Neurontin) 100 mg PO HS [facility] Last Admin: 06/20/18 21:04 Dose: 100 mg Glucagon (Glucagen Diagnostic Kit) 0 mg IM STAT PRN; Protocol PRN Reason: Hypoglycemia Protocol Dextrose (Dextrose 5% In Water 1000 Ml) 1,000 mls @ 0 mls/hr IV .Q0M PRN; Protocol PRN Reason: Hypoglycemia Protocol Meropenem 500 mg/ Sodium (Chloride) 100 mls @ 100 mls/hr IVPB Q8H [facility]; Protocol Last Admin: 06/21/18 00:05 Dose: 100 mls/hr Insulin Aspart (Novolog) 0 unit SC ACHS [facility]; Protocol Last Admin: 06/21/18 07:34 Dose: Not Given Lactobacillus Acidophilus (Lactobacillus) 1 cap PO BID [facility] Last Admin: 06/20/18 18:09 Dose: 1 cap - Labs Labs: 06/21/18 08:14 06/21/18 08:14 - Constitutional Appears: No Acute Distress, Chronically Ill - Head Exam Head Exam: ATRAUMATIC, NORMOCEPHALIC - Eye Exam Eye Exam: EOMI, PERRL - ENT Exam ENT Exam: Mucous Membranes Dry Additional comments: poor dentition - Respiratory Exam Respiratory Exam: Clear to Ausculation Bilateral, NORMAL BREATHING PATTERN - Cardiovascular Exam Cardiovascular Exam: REGULAR RHYTHM, +S1, +S2. absent: Murmur - GI/Abdominal Exam GI & Abdominal Exam: Soft, Normal Bowel Sounds. absent: Distended, Tenderness - Exam External exam: NORMAL EXTERNAL EXAM Additional comments: adult diaper with towel in place - Extremities Exam Extremities Exam: Tenderness (on knee palpation) Additional comments: IV access in L UE - Neurological Exam Neurological Exam: Alert, Awake - Psychiatric Exam Psychiatric exam: Flat Affect - Skin Skin Exam: Dry, Normal Color Additional comments: skin cool to touch Assessment and Plan - Assessment and Plan (Free Text) Assessment: 82yo F PMH HTN, DM, recurrent UTIs, pelvic prolapse, hydronephrosis admitted for cystitis. Plan: Cystitis/UTI Bilateral hydroureteronephrosis CT A/P (06/17): B/L hydroureteronephrosis to bladder. Bladder wall thickening w/ perivesicular fat stranding suggestive of cystitis Urine Cx (06/16): E.Coli UA: hematuria Merrem 500mg IVPB q8 (started 06/17) Tylenol 650mg po q6 prn fevers Uro consulted: Dr. Aburto ID consulted: Dr. Lew Fever with Chills 06/19 Tmax 102.1, 06/20 Tmax 101.9 Tylenol 650mg po q6 prn fevers f/u Blood Cx (06/20): received Hypertension home Enalapril 5mg po daily monitor vitals Anemia Ferrous sulfate 325mg po daily f/u Retic count Diabetes Mellitus with peripheral neuropathy Hgb A1c (06/17): 6.2 Accuchecks ACHS ISS hypoglycemia protocol home gabapentin 100mg po HS for neuropathy PPx VTE: SCDs, AC contraindicated 2/2 hematuria GI: home Colace 100mg po tid, Florastor Vegan diet d/w Dr. Leslie Butt PGY-1 <Len Nelson H - Last Filed: 06/22/18 07:56> Objective - Vital Signs/Intake and Output Vital Signs (last 24 hours): Temp Pulse Resp BP Pulse Ox 99.0 F 90 20 103/53 L 100 06/22/18 00:00 06/22/18 00:00 06/22/18 00:00 06/22/18 00:00 06/22/18 00:00 - Medications Medications: Current Medications Acetaminophen (Tylenol 325mg Tab) 650 mg PO Q6 PRN PRN Reason: Fever >100.4 F Last Admin: 06/21/18 00:00 Dose: 650 mg Dextrose (Dextrose 50% Inj) 0 ml IV STAT PRN; Protocol PRN Reason: Hypoglycemia Protocol Dextrose (Glutose 15) 0 gm PO ONCE PRN; Protocol PRN Reason: Hypoglycemia Protocol Docusate Sodium (Colace) 100 mg PO TID [facility] Last Admin: 06/21/18 18:01 Dose: 100 mg Enalapril Maleate (Vasotec) 5 mg PO DAILY [facility] Last Admin: 06/21/18 10:14 Dose: Not Given Ferrous Sulfate (Feosol) 325 mg PO DAILY [facility] Last Admin: 06/21/18 10:13 Dose: 325 mg Gabapentin (Neurontin) 100 mg PO HS [facility] Last Admin: 06/21/18 21:56 Dose: 100 mg Glucagon (Glucagen Diagnostic Kit) 0 mg IM STAT PRN; Protocol PRN Reason: Hypoglycemia Protocol Dextrose (Dextrose 5% In Water 1000 Ml) 1,000 mls @ 0 mls/hr IV .Q0M PRN; Protocol PRN Reason: Hypoglycemia Protocol Meropenem 500 mg/ Sodium (Chloride) 100 mls @ 100 mls/hr IVPB Q8H [facility]; Protocol Last Admin: 06/22/18 00:51 Dose: 100 mls/hr Insulin Aspart (Novolog) 0 unit SC ACHS [facility]; Protocol Last Admin: 06/21/18 21:47 Dose: Not Given Lactobacillus Acidophilus (Lactobacillus) 1 cap PO BID [facility] Last Admin: 06/21/18 18:01 Dose: 1 cap - Labs Labs: 06/22/18 07:14 06/21/18 08:14 Attending/Attestation - Attestation I have personally seen and examined this patient.: Yes I have fully participated in the care of the patient.: Yes I have reviewed all pertinent clinical information, including history, physical exam and plan: Yes Notes (Text): Medical attending: Patient was seen and examined by me. Reviewed the above note by the resident and agree with the above note. The patient was not in any acute distress when we came and saw. The patient remains on the IV abx at this time At this time continue to monitor for hematuria and also the CBC. Her Hgb was 8, so will need to watch if she needs transfusion. Creatine is 1.2 at this time Will need a PT/OT evaluation as well. thank you Len Nelson
[2018-06-21] MEDS: Lactobacillus Acidophilus 500 MU Cap PO SCH ×2 (10:13→18:01)
--- NOTE | 2018-06-22 00:06 | PCM.URO ---
Urology Progress Note - General General: No Complaints, Tolerating Diet - Subjective Abdominal Pain: No Flank Pain: No Voiding Well: No (INCONTINENT) Hematuria: No Chest Pain: No Fever & Chills: No - Objective Lab Results Last 24 Hours: Laboratory Results - last 24 hr 06/21/18 06/21/18 06/21/18 06:33 07:16 08:14 WBC 7.2 RBC 2.83 L Hgb 8.0 L Hct 24.0 L MCV 84.7 MCH 28.2 MCHC 33.3 RDW 15.8 H Plt Count 439 H MPV 7.3 Neut % (Auto) 48.6 L Lymph % (Auto) 37.4 Cross % (Auto) 13.1 H Eos % (Auto) 0.2 Baso % (Auto) 0.7 Neut # (Auto) 3.5 Lymph # (Auto) 2.7 Cross # (Auto) 0.9 H Eos # (Auto) 0.0 Baso # (Auto) 0.0 Sodium Potassium Chloride Carbon Dioxide Anion Gap BUN Creatinine Est GFR ( Amer) Est GFR (Non-Af Amer) POC Glucose (mg/dL) 110 Random Glucose Calcium Phosphorus Magnesium Total Bilirubin AST ALT Alkaline Phosphatase Total Protein Albumin Globulin Albumin/Globulin Ratio Urine Color Yellow Urine Clarity Clear Urine pH 6.0 Ur Specific [place] 1.008 Urine Protein Negative Urine Glucose (UA) Normal Urine Ketones Negative Urine Blood 1+ H Urine Nitrate Negative Urine Bilirubin Negative Urine Urobilinogen Normal Ur Leukocyte Esterase 3+ H Urine WBC (Auto) 53 H Urine RBC (Auto) 6 H Ur Squamous Epith Cells 3 Urine Bacteria Rare 06/21/18 06/21/18 06/21/18 08:14 11:26 16:58 WBC RBC Hgb Hct MCV MCH MCHC RDW Plt Count MPV Neut % (Auto) Lymph % (Auto) Cross % (Auto) Eos % (Auto) Baso % (Auto) Neut # (Auto) Lymph # (Auto) Cross # (Auto) Eos # (Auto) Baso # (Auto) Sodium 132 Potassium 4.2 Chloride 101 Carbon Dioxide 24 Anion Gap 11 BUN 15 Creatinine 1.2 Est GFR ( Amer) 52 Est GFR (Non-Af Amer) 43 POC Glucose (mg/dL) 226 H 142 H Random Glucose 100 Calcium 8.5 L Phosphorus 4.4 Magnesium 1.8 Total Bilirubin 0.2 AST 38 H ALT < 6 L D Alkaline Phosphatase 131 H Total Protein 6.6 Albumin 2.9 L Globulin 3.7 Albumin/Globulin Ratio 0.8 L Urine Color Urine Clarity Urine pH Ur Specific [place] Urine Protein Urine Glucose (UA) Urine Ketones Urine Blood Urine Nitrate Urine Bilirubin Urine Urobilinogen Ur Leukocyte Esterase Urine WBC (Auto) Urine RBC (Auto) Ur Squamous Epith Cells Urine Bacteria 06/21/18 21:41 WBC RBC Hgb Hct MCV MCH MCHC RDW Plt Count MPV Neut % (Auto) Lymph % (Auto) Cross % (Auto) Eos % (Auto) Baso % (Auto) Neut # (Auto) Lymph # (Auto) Cross # (Auto) Eos # (Auto) Baso # (Auto) Sodium Potassium Chloride Carbon Dioxide Anion Gap BUN Creatinine Est GFR ( Amer) Est GFR (Non-Af Amer) POC Glucose (mg/dL) 113 H Random Glucose Calcium Phosphorus Magnesium Total Bilirubin AST ALT Alkaline Phosphatase Total Protein Albumin Globulin Albumin/Globulin Ratio Urine Color Urine Clarity Urine pH Ur Specific [place] Urine Protein Urine Glucose (UA) Urine Ketones Urine Blood Urine Nitrate Urine Bilirubin Urine Urobilinogen Ur Leukocyte Esterase Urine WBC (Auto) Urine RBC (Auto) Ur Squamous Epith Cells Urine Bacteria Intake & Output: Intake & Output 06/21/18 06/21/18 06/22/18 06:59 18:59 06:59 Intake Total 200 1020 Balance 200 1020 Intake: Intake, IV Amount 100 220 Right Forearm 100 220 Oral 100 800 Other: # Voids Urine, Voided 3 3 # Bowel Movements 1 Vital Signs: Vital Signs - 24 hr 06/21/18 06/21/18 06/21/18 02:30 07:48 08:00 Temperature 99.2 F 97.9 F 97.8 F Pulse Rate 96 H 99 H Respiratory 16 20 Rate Blood Pressure 87/55 L 90/46 L O2 Sat by Pulse 98 97 Oximetry 06/21/18 06/21/18 06/21/18 10:07 10:14 15:25 Temperature 97.7 F Pulse Rate 88 Respiratory 20 Rate Blood Pressure 100/59 L 100/59 L 95/55 L O2 Sat by Pulse 99 Oximetry - Physical Exam Abdominal Exam: Soft, Non-Tender, Non-Distended Back: No CVA Tenderness Urine Color: Yellow - Plan Ambulation - Out of Bed: Yes Additional Information: IMP: UTI. HYDRONEPHROSIS. CYSTOCELE. INCOMPLETE BLADDER EMPTYING. INCONTINENCE. REC/P: ANTIBIOTIC RX. CONSIDER SURGERY FOR PELVIC PROLAPSE. CONSIDER CYSTO, STENT INSERTION. YS - Date & Time of Note Date: 06/21/18 Time: 11:00
[2018-06-22] MEDS: Meropenem 500 MG in Sodium Chloride 0.9% 100 ML IVPB SCH ×3 (00:51→17:58)
[2018-06-22 04:32] LABS: SQUAMOUS EPITHIAL 1 /hpf (0-5); URINE BACTERIA RARE (<OCC); URINE BILIRUBIN NEGATIVE (NEGATIVE); URINE BLOOD 1+ (NEGATIVE); URINE CLARITY Hazy (Clear); URINE COLOR Yellow (YELLOW); URINE GLUCOSE (UA) NORMAL (Normal); URINE LEUKOCYTE ESTERASE 3+ Leu/uL (Negative); URINE PROTEIN 1+ mg/dL (NEGATIVE); URINE UROBILINOGEN NORMAL mg/dL (0.2-1.0)
[2018-06-22 07:35] LABS: BASO # 0.1 K/uL (0.0-0.2); BASO % 0.9 % (0.0-2.0); EOS % 0.4 % (0.0-4.0); HEMOGLOBIN 8.1 g/dL (11.0-16.0); LYMPH # 2.6 K/uL (1.0-4.3); LYMPH % 40.1 % (20.0-40.0); MEAN CELL VOLUME 85.2 fL (81.0-99.0); MEAN CORPUSCULAR HGB CONC 32.8 g/dL (33.0-37.0); MEAN PLATELET VOLUME 7.4 fL (7.2-11.7); MONO # 0.7 K/uL (0.0-0.8); MONO % 11.4 % (0.0-10.0); NEUT # 3.1 K/uL (1.8-7.0); NEUT % 47.2 % (50.0-75.0); NRBC % 0.1 % (0.0-2.0); RBC 2.88 Mil/uL (3.80-5.20); RED CELL DISTRIBUTION WIDTH 15.8 % (11.5-14.5); WHITE BLOOD COUNT 6.6 K/uL (4.8-10.8)
[2018-06-22 08:09] LABS: ALB/GLOB RATIO 0.8 (1.0-2.1); ALBUMIN 2.8 g/dL (3.5-5.0); CALCIUM 8.2 mg/dl (8.6-10.4)
[2018-06-22] MEDS: (Novolog) Insulin Aspart, Recombinant 100 u/ml 10 ml vial SC SCH ×4 (08:36→21:45)
[2018-06-22] MEDS: Lactobacillus Acidophilus 500 MU Cap PO SCH ×2 (09:34→18:00)
--- NOTE | 2018-06-22 14:04 | CP.PCM.PN ---
<Lenora Butt - Last Filed: 06/22/18 14:01> Subjective - Date & Time of Evaluation Date of Evaluation: 06/22/18 Time of Evaluation: 11:00 - Subjective Subjective: PGY-1 Medicine Progress note for Dr. Nelson Patient was seen and examined sitting in chair OOB with son at bedside in no acute distress. Nurse reports no overnight fever, nor any other overnight event. Patient has no acute complaints. Denies chest pain, palpitations, abdominal pain, shortness of breath, headache, nausea, vomiting. Still complains of burning on urination. Objective - Vital Signs/Intake and Output Vital Signs (last 24 hours): Temp Pulse Resp BP Pulse Ox 98.6 F 89 20 96/54 L 97 06/22/18 07:49 06/22/18 07:49 06/22/18 07:49 06/22/18 07:49 06/22/18 07:49 - Medications Medications: Current Medications Acetaminophen (Tylenol 325mg Tab) 650 mg PO Q6 PRN PRN Reason: Fever >100.4 F Last Admin: 06/21/18 00:00 Dose: 650 mg Dextrose (Dextrose 50% Inj) 0 ml IV STAT PRN; Protocol PRN Reason: Hypoglycemia Protocol Dextrose (Glutose 15) 0 gm PO ONCE PRN; Protocol PRN Reason: Hypoglycemia Protocol Docusate Sodium (Colace) 100 mg PO TID [facility] Last Admin: 06/22/18 13:45 Dose: 100 mg Enalapril Maleate (Vasotec) 5 mg PO DAILY [facility] Last Admin: 06/22/18 09:35 Dose: Not Given Ferrous Sulfate (Feosol) 325 mg PO DAILY [facility] Last Admin: 06/22/18 09:34 Dose: 325 mg Gabapentin (Neurontin) 100 mg PO HS [facility] Last Admin: 06/21/18 21:56 Dose: 100 mg Glucagon (Glucagen Diagnostic Kit) 0 mg IM STAT PRN; Protocol PRN Reason: Hypoglycemia Protocol Dextrose (Dextrose 5% In Water 1000 Ml) 1,000 mls @ 0 mls/hr IV .Q0M PRN; Protocol PRN Reason: Hypoglycemia Protocol Meropenem 500 mg/ Sodium (Chloride) 100 mls @ 100 mls/hr IVPB Q8H [facility]; Protocol Last Admin: 06/22/18 09:35 Dose: 100 mls/hr Vancomycin HCl 1 gm/ Sodium (Chloride) 250 mls @ 166.7 mls/hr IVPB Q24H [facility]; Protocol Last Admin: 06/22/18 13:46 Dose: 166.7 mls/hr Insulin Aspart (Novolog) 0 unit SC ACHS [facility]; Protocol Last Admin: 06/22/18 13:49 Dose: Not Given Lactobacillus Acidophilus (Lactobacillus) 1 cap PO BID [facility] Last Admin: 06/22/18 09:34 Dose: 1 cap - Labs Labs: 06/22/18 07:14 06/22/18 07:14 - Constitutional Appears: No Acute Distress, Chronically Ill - Head Exam Head Exam: ATRAUMATIC, NORMOCEPHALIC - Eye Exam Eye Exam: EOMI, PERRL - ENT Exam ENT Exam: Mucous Membranes Moist Additional comments: poor dentition - Respiratory Exam Respiratory Exam: Clear to Ausculation Bilateral, NORMAL BREATHING PATTERN - Cardiovascular Exam Cardiovascular Exam: REGULAR RHYTHM, +S1, +S2. absent: Murmur - GI/Abdominal Exam GI & Abdominal Exam: Soft, Normal Bowel Sounds. absent: Tenderness - Exam Additional comments: adult diaper with towel in place - Extremities Exam Extremities Exam: Normal Capillary Refill Additional comments: IV access in L UE - Neurological Exam Neurological Exam: Alert, Awake, Oriented x3 - Psychiatric Exam Psychiatric exam: Flat Affect - Skin Skin Exam: Dry, Normal Color, Warm Assessment and Plan - Assessment and Plan (Free Text) Assessment: 82yo F PMH HTN, DM, recurrent UTIs, pelvic prolapse, hydronephrosis admitted for cystitis. Plan: Bilateral hydroureteronephrosis CT A/P (06/17): B/L hydroureteronephrosis to bladder. Bladder wall thickening w/ perivesicular fat stranding suggestive of cystitis Urine Cx (06/16): E.Coli UA (06/16): hematuria Repeat Urine Cx (06/21): gram positive cocci Repeat UA (06/21): hematuria and UTI Merrem 500mg IVPB q8 (started 06/17) Vancomycin 1gm IVPB daily (started 06/22) - f/u Vanc trough 06/25 @ 1230 Tylenol 650mg po q6 prn fevers Uro consulted: Dr. Aburto ID consulted: Dr. Lew Fever with Chills 06/19 Tmax 102.1, 06/20 Tmax 101.9 Tylenol 650mg po q6 prn fevers f/u Blood Cx (06/20): negative at 48 hours monitor vitals Hypertension home Enalapril 5mg po daily monitor vitals Anemia Ferrous sulfate 325mg po daily Retic count - 2.5 - patient was offered a blood transfusion, especially if her Hgb acutely drops. She refused since she her Dr. Howard has told her in the past to refuse them. Diabetes Mellitus with peripheral neuropathy Hgb A1c (06/17): 6.2 Accuchecks ACHS ISS hypoglycemia protocol home gabapentin 100mg po HS for neuropathy PPx VTE: SCDs, AC contraindicated 2/2 hematuria GI: home Colace 100mg po tid, Florastor Vegan diet d/w Dr. Leslie Butt PGY-1 <Len Nelson H - Last Filed: 06/22/18 18:45> Objective - Vital Signs/Intake and Output Vital Signs (last 24 hours): Temp Pulse Resp BP Pulse Ox 97.8 F 88 20 94/56 L 98 06/22/18 15:35 06/22/18 15:35 06/22/18 15:35 06/22/18 15:35 06/22/18 15:35 Intake and Output: 06/22/18 06/22/18 06:59 18:59 Intake Total 1100 Balance 1100 - Medications Medications: Current Medications Acetaminophen (Tylenol 325mg Tab) 650 mg PO Q6 PRN PRN Reason: Fever >100.4 F Last Admin: 06/21/18 00:00 Dose: 650 mg Dextrose (Dextrose 50% Inj) 0 ml IV STAT PRN; Protocol PRN Reason: Hypoglycemia Protocol Dextrose (Glutose 15) 0 gm PO ONCE PRN; Protocol PRN Reason: Hypoglycemia Protocol Docusate Sodium (Colace) 100 mg PO TID [facility] Last Admin: 06/22/18 17:59 Dose: 100 mg Enalapril Maleate (Vasotec) 5 mg PO DAILY [facility] Last Admin: 06/22/18 09:35 Dose: Not Given Ferrous Sulfate (Feosol) 325 mg PO DAILY [facility] Last Admin: 06/22/18 09:34 Dose: 325 mg Gabapentin (Neurontin) 100 mg PO HS [facility] Last Admin: 06/21/18 21:56 Dose: 100 mg Glucagon (Glucagen Diagnostic Kit) 0 mg IM STAT PRN; Protocol PRN Reason: Hypoglycemia Protocol Dextrose (Dextrose 5% In Water 1000 Ml) 1,000 mls @ 0 mls/hr IV .Q0M PRN; Protocol PRN Reason: Hypoglycemia Protocol Meropenem 500 mg/ Sodium (Chloride) 100 mls @ 100 mls/hr IVPB Q8H [facility]; Protocol Last Admin: 06/22/18 17:58 Dose: 100 mls/hr Vancomycin HCl 1 gm/ Sodium (Chloride) 250 mls @ 166.7 mls/hr IVPB Q24H [facility]; Protocol Last Admin: 06/22/18 13:46 Dose: 166.7 mls/hr Insulin Aspart (Novolog) 0 unit SC ACHS [facility]; Protocol Last Admin: 06/22/18 17:10 Dose: Not Given Lactobacillus Acidophilus (Lactobacillus) 1 cap PO BID [facility] Last Admin: 06/22/18 18:00 Dose: 1 cap - Labs Labs: 06/22/18 07:14 06/22/18 07:14 Attending/Attestation - Attestation I have personally seen and examined this patient.: Yes I have fully participated in the care of the patient.: Yes I have reviewed all pertinent clinical information, including history, physical exam and plan: Yes Notes (Text): 06/22/18 18:43 Medical attending: Patient was seen and examined by me. Agree with the above note by the resident The patient was not in any acute distress when we came and saw However the repeat UA and UC show new growth! Will need clarification from ID. Currently on Vancomycin and Merroenom. Recent fever of 101 last night Len Nelson 06/22/18 18:44
[2018-06-22] MEDS ORDERED: guaiFENesin 100 mg/5 ml Syrup UD PO ONE (19:36)
[2018-06-23] MEDS: Meropenem 500 MG in Sodium Chloride 0.9% 100 ML IVPB SCH ×3 (00:13→17:43)
[2018-06-23 06:28] LABS: BASO % 0.9 % (0.0-2.0); EOS # 0.1 K/uL (0.0-0.7); EOS % 1.7 % (0.0-4.0); HEMOGLOBIN 7.6 g/dL (11.0-16.0); LYMPH # 2.5 K/uL (1.0-4.3); LYMPH % 46.6 % (20.0-40.0); MEAN CELL VOLUME 85.9 fL (81.0-99.0); MEAN CORPUSCULAR HEMOGLOBIN 28.2 pg (27.0-31.0); MEAN CORPUSCULAR HGB CONC 32.9 g/dL (33.0-37.0); MEAN PLATELET VOLUME 7.2 fL (7.2-11.7); MONO # 0.6 K/uL (0.0-0.8); MONO % 10.6 % (0.0-10.0); NEUT # 2.2 K/uL (1.8-7.0); NEUT % 40.2 % (50.0-75.0); NRBC % 0.1 % (0.0-2.0); RBC 2.68 Mil/uL (3.80-5.20); RED CELL DISTRIBUTION WIDTH 15.7 % (11.5-14.5); WHITE BLOOD COUNT 5.5 K/uL (4.8-10.8)
[2018-06-23 06:51] LABS: ALB/GLOB RATIO 0.8 (1.0-2.1); ALBUMIN 2.6 g/dL (3.5-5.0); ALT/SGPT 17 U/L (9-52); AST/SGOT 62 U/L (14-36); BLOOD UREA NITROGEN 20 mg/dL (7-17); CALCIUM 8.2 mg/dl (8.6-10.4); GFR NON-AFRICAN AMERICAN 53
--- NOTE | 2018-06-23 07:00 | CP.PCM.PN ---
<Lenora Butt Y - Last Filed: 06/23/18 14:45> Subjective - Date & Time of Evaluation Date of Evaluation: 06/23/18 Time of Evaluation: 12:00 - Subjective Subjective: PGY-1 Medicine Progress note for Dr. Nelson Patient was seen and examined today in no acute distress with son at bedside. Nurse reports no overnight events. Patient has no new complaints. Denies chest pain, palpitations, abdominal pain, shortness of breath, headache, nausea, vomiting. Still complains of burning on urination. Objective - Vital Signs/Intake and Output Vital Signs (last 24 hours): Temp Pulse Resp BP Pulse Ox 98.5 F 81 20 116/63 95 06/22/18 23:40 06/22/18 23:40 06/22/18 23:40 06/22/18 23:40 06/22/18 23:40 Intake and Output: 06/23/18 06/23/18 06:59 18:59 Intake Total 400 Balance 400 - Medications Medications: Current Medications Acetaminophen (Tylenol 325mg Tab) 650 mg PO Q6 PRN PRN Reason: Fever >100.4 F Last Admin: 06/21/18 00:00 Dose: 650 mg Dextrose (Dextrose 50% Inj) 0 ml IV STAT PRN; Protocol PRN Reason: Hypoglycemia Protocol Dextrose (Glutose 15) 0 gm PO ONCE PRN; Protocol PRN Reason: Hypoglycemia Protocol Docusate Sodium (Colace) 100 mg PO TID [facility] Last Admin: 06/22/18 17:59 Dose: 100 mg Enalapril Maleate (Vasotec) 5 mg PO DAILY [facility] Last Admin: 06/22/18 09:35 Dose: Not Given Ferrous Sulfate (Feosol) 325 mg PO DAILY [facility] Last Admin: 06/22/18 09:34 Dose: 325 mg Gabapentin (Neurontin) 100 mg PO HS [facility] Last Admin: 06/22/18 21:22 Dose: 100 mg Glucagon (Glucagen Diagnostic Kit) 0 mg IM STAT PRN; Protocol PRN Reason: Hypoglycemia Protocol Dextrose (Dextrose 5% In Water 1000 Ml) 1,000 mls @ 0 mls/hr IV .Q0M PRN; Protocol PRN Reason: Hypoglycemia Protocol Meropenem 500 mg/ Sodium (Chloride) 100 mls @ 100 mls/hr IVPB Q8H [facility]; Protocol Last Admin: 06/23/18 00:13 Dose: 100 mls/hr Vancomycin HCl 1 gm/ Sodium (Chloride) 250 mls @ 166.7 mls/hr IVPB Q24H [facility]; Protocol Last Admin: 06/22/18 13:46 Dose: 166.7 mls/hr Insulin Aspart (Novolog) 0 unit SC ACHS [facility]; Protocol Last Admin: 06/22/18 21:45 Dose: Not Given Lactobacillus Acidophilus (Lactobacillus) 1 cap PO BID [facility] Last Admin: 06/22/18 18:00 Dose: 1 cap - Labs Labs: 06/23/18 06:19 06/23/18 06:19 - Constitutional Appears: No Acute Distress, Chronically Ill - Head Exam Head Exam: ATRAUMATIC, NORMOCEPHALIC - Eye Exam Eye Exam: EOMI, PERRL - ENT Exam ENT Exam: Mucous Membranes Moist Additional comments: poor dentition - Respiratory Exam Respiratory Exam: Clear to Ausculation Bilateral, NORMAL BREATHING PATTERN - Cardiovascular Exam Cardiovascular Exam: REGULAR RHYTHM, +S1, +S2. absent: Murmur - GI/Abdominal Exam GI & Abdominal Exam: Soft, Normal Bowel Sounds. absent: Tenderness - Exam Additional comments: adult diaper with towel in place - Extremities Exam Extremities Exam: Normal Capillary Refill Additional comments: IV access in L UE - Neurological Exam Neurological Exam: Alert, Awake, Oriented x3 - Psychiatric Exam Psychiatric exam: Normal Affect, Normal Mood - Skin Skin Exam: Dry, Intact, Normal Color, Warm Assessment and Plan - Assessment and Plan (Free Text) Assessment: 82yo F PMH HTN, DM, recurrent UTIs, pelvic prolapse, hydronephrosis admitted for cystitis. Plan: Bilateral hydroureteronephrosis CT A/P (06/17): B/L hydroureteronephrosis to bladder. Bladder wall thickening w/ perivesicular fat stranding suggestive of cystitis Urine Cx (06/16): E.Coli UA (06/16): hematuria Repeat Urine Cx (06/21): Enterococcus Faecium Repeat UA (06/21): hematuria and UTI Merrem 500mg IVPB q8 (started 06/17) Vancomycin 1gm IVPB daily (started 06/22) - f/u Vanc trough 06/25 @ 1230 Tylenol 650mg po q6 prn fevers Post void scans prn to check for retention Uro consulted: Dr. Jun Aburto ID consulted: Dr. Lew Fever with Chills 06/19 Tmax 102.1, 06/20 Tmax 101.9 Tylenol 650mg po q6 prn fevers f/u Blood Cx (06/20): negative at 3 days monitor vitals Hypertension home Enalapril 5mg po daily monitor vitals Anemia Ferrous sulfate 325mg po daily Retic count - 2.5 06/22: patient was offered a blood transfusion, especially if her Hgb acutely drops. She refused since she her Dr. Howard has told her in the past to refuse them. 06/23: patient was once again offered a blood transfusion. However, she still refused. We were able to clarify which doctor told her to refuse transfuse them, Jun Aburto. Once made aware, Dr. Aburto assured the family that was NOT the case. He reiterated that if indicated, transfusions would help, especially if there were an acute bleed. Patient is still hesitant about transfusion and would like more time to discuss with son and before accepting it. She did say if there were an acute bleed, she would accept a transfusion. Diabetes Mellitus with peripheral neuropathy Hgb A1c (06/17): 6.2 Accuchecks ACHS ISS hypoglycemia protocol home gabapentin 100mg po HS for neuropathy PPx VTE: SCDs, AC contraindicated 2/2 hematuria GI: home Colace 100mg po tid, Florastor Vegan diet Dispo: PT recommends TCU/[facility] on discharge to continue PT. Patient is able to get antibiotics at that level of care, but must be hematologically stable prior to discharge. d/w Dr. Leslie Butt PGY-1 <Len Nelson H - Last Filed: 06/23/18 18:11> Objective - Vital Signs/Intake and Output Vital Signs (last 24 hours): Temp Pulse Resp BP Pulse Ox 97.8 F 82 20 101/60 95 06/23/18 16:43 06/23/18 16:43 06/23/18 16:43 06/23/18 16:43 06/23/18 16:43 Intake and Output: 06/23/18 06/23/18 06:59 18:59 Intake Total 400 Balance 400 - Medications Medications: Current Medications Acetaminophen (Tylenol 325mg Tab) 650 mg PO Q6 PRN PRN Reason: Fever >100.4 F Last Admin: 06/21/18 00:00 Dose: 650 mg Dextrose (Dextrose 50% Inj) 0 ml IV STAT PRN; Protocol PRN Reason: Hypoglycemia Protocol Dextrose (Glutose 15) 0 gm PO ONCE PRN; Protocol PRN Reason: Hypoglycemia Protocol Docusate Sodium (Colace) 100 mg PO TID [facility] Last Admin: 06/23/18 17:44 Dose: Not Given Enalapril Maleate (Vasotec) 5 mg PO DAILY [facility] Last Admin: 06/23/18 09:06 Dose: 5 mg Ferrous Sulfate (Feosol) 325 mg PO DAILY [facility] Last Admin: 06/23/18 09:05 Dose: 325 mg Gabapentin (Neurontin) 100 mg PO HS [facility] Last Admin: 06/22/18 21:22 Dose: 100 mg Glucagon (Glucagen Diagnostic Kit) 0 mg IM STAT PRN; Protocol PRN Reason: Hypoglycemia Protocol Dextrose (Dextrose 5% In Water 1000 Ml) 1,000 mls @ 0 mls/hr IV .Q0M PRN; Prot ocol PRN Reason: Hypoglycemia Protocol Meropenem 500 mg/ Sodium (Chloride) 100 mls @ 100 mls/hr IVPB Q8H [facility]; Protocol Last Admin: 06/23/18 17:43 Dose: Not Given Vancomycin HCl 1 gm/ Sodium (Chloride) 250 mls @ 166.7 mls/hr IVPB Q24H [facility]; Protocol Last Admin: 06/23/18 12:02 Dose: 166.7 mls/hr Insulin Aspart (Novolog) 0 unit SC ACHS [facility]; Protocol Last Admin: 06/23/18 17:43 Dose: Not Given Lactobacillus Acidophilus (Lactobacillus) 1 cap PO BID [facility] Last Admin: 06/23/18 17:43 Dose: Not Given - Labs Labs: 06/23/18 06:19 06/23/18 06:19 Attending/Attestation - Attestation I have personally seen and examined this patient.: Yes I have fully participated in the care of the patient.: Yes I have reviewed all pertinent clinical information, including history, physical exam and plan: Yes Notes (Text): 06/23/18 18:07 Medical attending: Patient was seen and examined by me. Agree with the above note by the resident From what I understand the patient and the patient's family member at bedside thought their primary physician was a "Dr Bethea" however after some clarification it was Dr Jun Aburto Urologist. The patient was insisting that she did not want a blood transfusion despite the Hgb again being lower. She is not actively bleeding however for her to go to rehab with such a low Hgb would not be beneficial to her and she would probably not be participating well at rehab being so anemic like this If she remains stable Hgb then we will consider DC to rehab with IV abx however I can't see her doing well. eLn Nelson
[2018-06-23] MEDS: (Novolog) Insulin Aspart, Recombinant 100 u/ml 10 ml vial SC SCH ×4 (07:22→21:57)
[2018-06-23] MEDS: Lactobacillus Acidophilus 500 MU Cap PO SCH ×2 (09:05→17:43)
--- NOTE | 2018-06-23 21:05 | PCM.URO ---
Urology Progress Note - General General: Tolerating Diet (better appetite, more conversant) - Subjective Abdominal Pain: No Flank Pain: No Nausea: No Vomiting: No Dysuria: No Hematuria: No Chest Pain: No Fever & Chills: No - Objective Lab Results Last 24 Hours: Laboratory Results - last 24 hr 06/22/18 06/23/18 06/23/18 21:07 06:19 06:19 WBC 5.5 RBC 2.68 L Hgb 7.6 L Hct 23.0 L MCV 85.9 MCH 28.2 MCHC 32.9 L RDW 15.7 H Plt Count 407 H MPV 7.2 Neut % (Auto) 40.2 L Lymph % (Auto) 46.6 H [place] % (Auto) 10.6 H Eos % (Auto) 1.7 Baso % (Auto) 0.9 Neut # (Auto) 2.2 Lymph # (Auto) 2.5 [place] # (Auto) 0.6 Eos # (Auto) 0.1 Baso # (Auto) 0.0 Sodium 135 Potassium 4.6 Chloride 107 Carbon Dioxide 23 Anion Gap 10 BUN 20 H Creatinine 1.0 Est GFR ( Amer) > 60 Est GFR (Non-Af Amer) 53 POC Glucose (mg/dL) 203 H Random Glucose 88 Calcium 8.2 L Phosphorus 3.7 Magnesium 1.8 Total Bilirubin 0.1 L AST 62 H ALT 17 Alkaline Phosphatase 139 H Total Protein 6.0 L Albumin 2.6 L Globulin 3.4 Albumin/Globulin Ratio 0.8 L 06/23/18 06/23/18 06/23/18 06:40 11:13 16:16 WBC RBC Hgb Hct MCV MCH MCHC RDW Plt Count MPV Neut % (Auto) Lymph % (Auto) [place] % (Auto) Eos % (Auto) Baso % (Auto) Neut # (Auto) Lymph # (Auto) [place] # (Auto) Eos # (Auto) Baso # (Auto) Sodium Potassium Chloride Carbon Dioxide Anion Gap BUN Creatinine Est GFR ( Amer) Est GFR (Non-Af Amer) POC Glucose (mg/dL) 92 154 H 192 H Random Glucose Calcium Phosphorus Magnesium Total Bilirubin AST ALT Alkaline Phosphatase Total Protein Albumin Globulin Albumin/Globulin Ratio Intake & Output: Intake & Output 06/23/18 06/23/18 06/24/18 06:59 18:59 06:59 Intake Total 400 Balance 400 Intake: Intake, IV Amount 100 Right Forearm 100 Oral 300 Vital Signs: Vital Signs - 24 hr 06/22/18 06/23/18 06/23/18 23:40 08:00 09:06 Temperature 98.5 F 97.8 F Pulse Rate 81 78 Respiratory 20 20 Rate Blood Pressure 116/63 116/63 116/60 O2 Sat by Pulse 95 100 Oximetry 06/23/18 16:43 Temperature 97.8 F Pulse Rate 82 Respiratory 20 Rate Blood Pressure 101/60 O2 Sat by Pulse 95 Oximetry - Physical Exam Abdominal Exam: Soft, Non-Tender, Non-Distended Bowel Sounds: Normal Back: No CVA Tenderness - Plan Additional Information: IMP: uti. hydronephrosis. pelvic prolapse. anemia. P/Rec: antibiotic rx. poss need for cysto, stent insertion. STOCK TURNER consult e poss surgery. discussed w med staff - Date & Time of Note Date: 06/23/18 Time: 13:10
[2018-06-23] MEDS ORDERED: guaiFENesin 100 mg/5 ml Syrup UD PO ONE (21:38)
[2018-06-24] MEDS: Meropenem 500 MG in Sodium Chloride 0.9% 100 ML IVPB SCH ×3 (00:53→17:36)
[2018-06-24] MEDS: (Novolog) Insulin Aspart, Recombinant 100 u/ml 10 ml vial SC SCH ×4 (07:12→22:09)
[2018-06-24 07:16] LABS: BASO % 0.6 % (0.0-2.0); EOS # 0.1 K/uL (0.0-0.7); EOS % 2.2 % (0.0-4.0); HEMOGLOBIN 7.9 g/dL (11.0-16.0); LYMPH # 2.8 K/uL (1.0-4.3); LYMPH % 43.6 % (20.0-40.0); MEAN CORPUSCULAR HEMOGLOBIN 27.7 pg (27.0-31.0); MEAN CORPUSCULAR HGB CONC 32.2 g/dL (33.0-37.0); MEAN PLATELET VOLUME 7.5 fL (7.2-11.7); MONO # 0.6 K/uL (0.0-0.8); MONO % 9.2 % (0.0-10.0); NEUT # 2.8 K/uL (1.8-7.0); NEUT % 44.4 % (50.0-75.0); NRBC % 0.2 % (0.0-2.0); RBC 2.84 Mil/uL (3.80-5.20); RED CELL DISTRIBUTION WIDTH 16.6 % (11.5-14.5); WHITE BLOOD COUNT 6.4 K/uL (4.8-10.8)
[2018-06-24 07:29] LABS: ALB/GLOB RATIO 0.8 (1.0-2.1); ALBUMIN 2.7 g/dL (3.5-5.0); ALT/SGPT 17 U/L (9-52); AST/SGOT 60 U/L (14-36); BLOOD UREA NITROGEN 16 mg/dL (7-17); CALCIUM 8.3 mg/dl (8.6-10.4); GFR NON-AFRICAN AMERICAN 60
--- NOTE | 2018-06-24 08:01 | CP.PCM.PN ---
<Royce Gillette - Last Filed: 06/24/18 16:13> Subjective - Date & Time of Evaluation Date of Evaluation: 06/24/18 Time of Evaluation: 07:59 - Subjective Subjective: HOSPITALIST SERVICE Pt reports minor cough overnight, responded well to overnight tx, pt also has persistent dull bilateral leg pain, pt denies pain w/ urinatioin or back pain, understands she must finish IV Abx, denies CP SOB FC NV. reports improvement in condition since admission. Pt told she needs PICC Line however she is now r efusing Objective - Vital Signs/Intake and Output Vital Signs (last 24 hours): Temp Pulse Resp BP Pulse Ox 98.1 F 100 H 20 101/62 95 06/24/18 00:00 06/24/18 00:00 06/24/18 00:00 06/24/18 00:00 06/24/18 00:00 - Medications Medications: Current Medications Acetaminophen (Tylenol 325mg Tab) 650 mg PO Q6 PRN PRN Reason: Fever >100.4 F Last Admin: 06/24/18 05:08 Dose: 650 mg Dextrose (Dextrose 50% Inj) 0 ml IV STAT PRN; Protocol PRN Reason: Hypoglycemia Protocol Dextrose (Glutose 15) 0 gm PO ONCE PRN; Protocol PRN Reason: Hypoglycemia Protocol Docusate Sodium (Colace) 100 mg PO TID [facility] Last Admin: 06/23/18 17:44 Dose: Not Given Enalapril Maleate (Vasotec) 5 mg PO DAILY [facility] Last Admin: 06/23/18 09:06 Dose: 5 mg Ferrous Sulfate (Feosol) 325 mg PO DAILY [facility] Last Admin: 06/23/18 09:05 Dose: 325 mg Gabapentin (Neurontin) 100 mg PO [facility] Last Admin: 06/23/18 21:57 Dose: 100 mg Glucagon (Glucagen Diagnostic Kit) 0 mg IM STAT PRN; Protocol PRN Reason: Hypoglycemia Protocol Dextrose (Dextrose 5% In Water 1000 Ml) 1,000 mls @ 0 mls/hr IV .Q0M PRN; Protocol PRN Reason: Hypoglycemia Protocol Meropenem 500 mg/ Sodium (Chloride) 100 mls @ 100 mls/hr IVPB Q8H [facility]; Protocol Last Admin: 06/24/18 00:53 Dose: 100 mls/hr Vancomycin HCl 1 gm/ Sodium (Chloride) 250 mls @ 166.7 mls/hr IVPB Q24H [facility]; Protocol Last Admin: 06/23/18 12:02 Dose: 166.7 mls/hr Insulin Aspart (Novolog) 0 unit SC ACHS [facility]; Protocol Last Admin: 06/24/18 07:12 Dose: Not Given Lactobacillus Acidophilus (Lactobacillus) 1 cap PO BID [facility] Last Admin: 06/23/18 17:43 Dose: Not Given - Labs Labs: 06/24/18 06:48 06/24/18 06:48 - Additional Findings Additional findings: - Constitutional Appears: No Acute Distress, Chronically Ill - Head Exam Head Exam: ATRAUMATIC, NORMOCEPHALIC - Eye Exam Eye Exam: EOMI, PERRL - ENT Exam ENT Exam: Mucous Membranes Moist Additional comments: poor dentition - Respiratory Exam Respiratory Exam: Clear to Ausculation Bilateral, NORMAL BREATHING PATTERN - Cardiovascular Exam Cardiovascular Exam: REGULAR RHYTHM, +S1, +S2. absent: Murmur - GI/Abdominal Exam GI & Abdominal Exam: Soft, Normal Bowel Sounds. absent: Tenderness - Exam Additional comments: adult diaper with towel in place - Extremities Exam Extremities Exam: Normal Capillary Refill Additional comments: IV access in L UE - Neurological Exam Neurological Exam: Alert, Awake, Oriented x3 - Psychiatric Exam Psychiatric exam: Normal Affect, Normal Mood - Skin Skin Exam: Dry, Intact, Normal Color, Warm Assessment and Plan - Assessment and Plan (Free Text) Assessment: 82yo F PMH HTN, DM, recurrent UTIs, pelvic prolapse, hydronephrosis admitted for cystitis. Plan: Bilateral hydroureteronephrosis CT A/P (06/17): B/L hydroureteronephrosis to bladder. Bladder wall thickening w/ perivesicular fat stranding suggestive of cystitis Urine Cx (06/16): E.Coli UA (06/16): hematuria Repeat Urine Cx (06/21): Enterococcus Faecium Repeat UA (06/21): hematuria and UTI Merrem 500mg IVPB q8 (started 06/17) Vancomycin 1gm IVPB daily (started 06/22) - f/u Vanc trough 06/25 @ 1230 Tylenol 650mg po q6 prn fevers Post void scans prn to check for retention Uro consulted: Dr. Jun Aburto- after completion of merrem, pt to get stent and cysto ID consulted: Dr. Lew Fever with Chills 06/19 Tmax 102.1, 06/20 Tmax 101.9 Tylenol 650mg po q6 prn fevers f/u Blood Cx (06/20): negative at 3 days monitor vitals Hypertension home Enalapril 5mg po daily monitor vitals Anemia Ferrous sulfate 325mg po daily Retic count - 2.5 06/22: patient was offered a blood transfusion, especially if her Hgb acutely drops. She refused since she her Dr. Howard has told her in the past to refuse them. 06/23: patient was once again offered a blood transfusion. However, she still refused. We were able to clarify which doctor told her to refuse transfuse them, Jun Aburto. Once made aware, Dr. Aburto assured the family that was NOT the case. He reiterated that if indicated, transfusions would help, especially if there were an acute bleed. Patient is still hesitant about transfusion and would like more time to discuss with son and before accepting it. She did say if there were an acute bleed, she would accept a transfusion. Diabetes Mellitus with peripheral neuropathy Hgb A1c (06/17): 6.2 Accuchecks ACHS ISS hypoglycemia protocol home gabapentin 100mg po HS for neuropathy PPx VTE: SCDs, AC contraindicated 2/2 hematuria GI: home Colace 100mg po tid, Florastor Vegan diet Dispo: PT recommends TCU/[facility] on discharge to continue PT. Patient is able to get antibiotics at that level of care, but must be hematologically stable prior to discharge. <Len Nelson - Last Filed: 06/24/18 17:47> Objective - Vital Signs/Intake and Output Vital Signs (last 24 hours): Temp Pulse Resp BP Pulse Ox 97.6 F 74 18 98/58 L 98 06/24/18 08:16 06/24/18 08:16 06/24/18 08:16 06/24/18 11:06 06/24/18 08:16 - Medications Medications: Current Medications Acetaminophen (Tylenol 325mg Tab) 650 mg PO Q6 PRN PRN Reason: Fever >100.4 F Last Admin: 06/24/18 14:27 Dose: 650 mg Dextrose (Dextrose 50% Inj) 0 ml IV STAT PRN; Protocol PRN Reason: Hypoglycemia Protocol Dextrose (Glutose 15) 0 gm PO ONCE PRN; Protocol PRN Reason: Hypoglycemia Protocol Docusate Sodium (Colace) 100 mg PO TID [facility] Last Admin: 06/24/18 17:35 Dose: 100 mg Enalapril Maleate (Vasotec) 5 mg PO DAILY [facility] Last Admin: 06/24/18 11:06 Dose: Not Given Ferrous Sulfate (Feosol) 325 mg PO DAILY [facility] Last Admin: 06/24/18 09:28 Dose: 325 mg Gabapentin (Neurontin) 100 mg PO HS [facility] Last Admin: 06/23/18 21:57 Dose: 100 mg Glucagon (Glucagen Diagnostic Kit) 0 mg IM STAT PRN; Protocol PRN Reason: Hypoglycemia Protocol Dextrose (Dextrose 5% In Water 1000 Ml) 1,000 mls @ 0 mls/hr IV .Q0M PRN; Protocol PRN Reason: Hypoglycemia Protocol Meropenem 500 mg/ Sodium (Chloride) 100 mls @ 100 mls/hr IVPB Q8H [facility]; Protocol Last Admin: 06/24/18 17:36 Dose: 100 mls/hr Vancomycin HCl 1 gm/ Sodium (Chloride) 250 mls @ 166.7 mls/hr IVPB Q24H [facility]; Protocol Last Admin: 06/24/18 14:20 Dose: 166.7 mls/hr Insulin Aspart (Novolog) 0 unit SC ACHS [facility]; Protocol Last Admin: 06/24/18 17:36 Dose: Not Given Lactobacillus Acidophilus (Lactobacillus) 1 cap PO BID [facility] Last Admin: 06/24/18 17:35 Dose: 1 cap - Labs Labs: 06/24/18 06:48 06/24/18 06:48 Attending/Attestation - Attestation I have personally seen and examined this patient.: Yes I have fully participated in the care of the patient.: Yes I have reviewed all pertinent clinical information, including history, physical exam and plan: Yes Notes (Text): 06/24/18 17:44 Medical attending: Patient was seen and examined by me. Agree with the above note by the resident The patient AGAIN refused blood transfusion Today she also refused the PICC Line when we asked for consent We had rolling machine tender present with us today. I asked the nursing staff to document the patient is refusing blood transfusion and PICC line This will make it much harder for her to go to a rehab, she remains anemic and mostly bedbound. Today the son was not present like the previous days. Len Nelson
[2018-06-24] MEDS: Lactobacillus Acidophilus 500 MU Cap PO SCH ×2 (09:28→17:35)
[2018-06-24] MEDS ORDERED: guaiFENesin 100 mg/5 ml Syrup UD PO ONE ×2 (22:34→22:37)
[2018-06-25] MEDS: Meropenem 500 MG in Sodium Chloride 0.9% 100 ML IVPB SCH ×4 (00:18→17:43)
[2018-06-25 07:20] LABS: BASO # 0.1 K/uL (0.0-0.2); EOS # 0.2 K/uL (0.0-0.7); EOS % 3.3 % (0.0-4.0); HEMOGLOBIN 8.6 g/dL (11.0-16.0); LYMPH # 2.9 K/uL (1.0-4.3); LYMPH % 38.8 % (20.0-40.0); MEAN CELL VOLUME 85.7 fL (81.0-99.0); MEAN CORPUSCULAR HEMOGLOBIN 28.1 pg (27.0-31.0); MEAN CORPUSCULAR HGB CONC 32.7 g/dL (33.0-37.0); MEAN PLATELET VOLUME 7.6 fL (7.2-11.7); MONO # 0.5 K/uL (0.0-0.8); MONO % 6.8 % (0.0-10.0); NEUT # 3.8 K/uL (1.8-7.0); NEUT % 50.1 % (50.0-75.0); RBC 3.05 Mil/uL (3.80-5.20); RED CELL DISTRIBUTION WIDTH 16.1 % (11.5-14.5); WHITE BLOOD COUNT 7.6 K/uL (4.8-10.8)
[2018-06-25 07:36] LABS: ALB/GLOB RATIO 0.8 (1.0-2.1); ALT/SGPT 25 U/L (9-52); AST/SGOT 81 U/L (14-36); BLOOD UREA NITROGEN 13 mg/dL (7-17); CALCIUM 8.7 mg/dl (8.6-10.4); GFR NON-AFRICAN AMERICAN > 60
[2018-06-25] MEDS: (Novolog) Insulin Aspart, Recombinant 100 u/ml 10 ml vial SC SCH ×4 (08:03→21:50)
[2018-06-25] MEDS: Lactobacillus Acidophilus 500 MU Cap PO SCH ×2 (09:52→17:43)
--- NOTE | 2018-06-25 11:43 | CP.PCM.DIS ---
Provider - Provider Date of Admission: 06/16/18 19:38 Attending physician: Len Nelson DO Consults: 06/16/18 21:52 Urology Consult Routine Comment: Consulting Provider: Eun Aburto Consulting Physician: Eun Aburto Reason for Consult: recurrent UTI, previous stent hx 06/17/18 08:54 Physician Consult Routine Comment: Consulting Provider: Howie Hernandez Consulting Physician: Howie Hernandez Reason for Consult: ? pelvic prolapse, ? hydrocele 06/17/18 15:58 Infectious Disease Consult Routine Comment: Consulting Provider: Albert Lew Consulting Physician: Albert Lew Reason for Consult: pyelo Time Spent in preparation of Discharge (in minutes): 45 Hospital Course - Lab Results Lab Results: Micro Results 06/20/18 08:45 Blood Blood Culture - Final NO GROWTH AFTER 5 DAYS 06/20/18 08:45 Blood Gram Stain - Final TEST NOT PERFORMED 06/20/18 09:15 Blood Blood Culture - Final NO GROWTH AFTER 5 DAYS 06/20/18 09:15 Blood Gram Stain - Final TEST NOT PERFORMED 06/21/18 07:16 Urine,Clean Catch Urine Culture - Final Enterococcus Faecium 06/16/18 16:33 Urine Random Urine Culture - Final Escherichia Coli Most Recent Lab Values WBC 7.6 K/uL (4.8-10.8) 06/25/18 07:06 RBC 3.05 Mil/uL (3.80-5.20) L 06/25/18 07:06 Hgb 8.6 g/dL (11.0-16.0) L 06/25/18 07:06 Hct 26.1 % (34.0-47.0) L 06/25/18 07:06 MCV 85.7 fL (81.0-99.0) 06/25/18 07:06 MCH 28.1 pg (27.0-31.0) 06/25/18 07:06 MCHC 32.7 g/dL (33.0-37.0) L 06/25/18 07:06 RDW 16.1 % (11.5-14.5) H 06/25/18 07:06 Plt Count 471 K/uL (130-400) H 06/25/18 07:06 MPV 7.6 fL (7.2-11.7) 06/25/18 07:06 Neut % (Auto) 50.1 % (50.0-75.0) 06/25/18 07:06 Lymph % (Auto) 38.8 % (20.0-40.0) 06/25/18 07:06 [place] % (Auto) 6.8 % (0.0-10.0) 06/25/18 07:06 Eos % (Auto) 3.3 % (0.0-4.0) 06/25/18 07:06 Baso % (Auto) 1.0 % (0.0-2.0) 06/25/18 07:06 Neut # (Auto) 3.8 K/uL (1.8-7.0) 06/25/18 07:06 Lymph # (Auto) 2.9 K/uL (1.0-4.3) 06/25/18 07:06 [place] # (Auto) 0.5 K/uL (0.0-0.8) 06/25/18 07:06 Eos # (Auto) 0.2 K/uL (0.0-0.7) 06/25/18 07:06 Baso # (Auto) 0.1 K/uL (0.0-0.2) 06/25/18 07:06 Retic Count 2.5 % (0.5-1.5) H D 06/22/18 07:14 Sodium 136 mmol/L (132-148) 06/25/18 07:06 Potassium 4.9 mmol/L (3.6-5.2) 06/25/18 07:06 Chloride 107 mmol/L (98-107) 06/25/18 07:06 Carbon Dioxide 24 mmol/L (22-30) 06/25/18 07:06 Anion Gap 10 (10-20) 06/25/18 07:06 BUN 13 mg/dL (7-17) 06/25/18 07:06 Creatinine 0.8 mg/dL (0.7-1.2) 06/25/18 07:06 Est GFR ( Amer) > 60 06/25/18 07:06 Est GFR (Non-Af Amer) > 60 06/25/18 07:06 POC Glucose (mg/dL) 94 mg/dL (65-110) 06/25/18 06:27 Random Glucose 91 mg/dL (65-105) 06/25/18 07:06 Hemoglobin A1c 6.2 % (4.2-6.5) 06/17/18 01:22 Lactic Acid 0.9 mmol/L (0.7-2.1) 06/18/18 07:52 Calcium 8.7 mg/dl (8.6-10.4) 06/25/18 07:06 Phosphorus 3.7 mg/dL (2.5-4.5) 06/23/18 06:19 Magnesium 1.8 mg/dL (1.6-2.3) 06/23/18 06:19 Iron 21 ug/dL (37-170) L 06/17/18 01:22 TIBC 325 ug/dL (250-450) 06/17/18 01:22 % Saturation 7 (20-55) L 06/17/18 01:22 Ferritin 13.6 ng/mL 06/17/18 01:22 Total Bilirubin 0.2 mg/dL (0.2-1.3) 06/25/18 07:06 AST 81 U/L (14-36) H D 06/25/18 07:06 ALT 25 U/L (9-52) 06/25/18 07:06 Alkaline Phosphatase 163 U/L (38-126) H 06/25/18 07:06 Total Protein 6.8 g/dL (6.3-8.3) 06/25/18 07:06 Albumin 3.0 g/dL (3.5-5.0) L 06/25/18 07:06 Globulin 3.7 gm/dL (2.2-3.9) 06/25/18 07:06 Albumin/Globulin Ratio 0.8 (1.0-2.1) L 06/25/18 07:06 Vitamin B12 906 pg/mL (239-931) 06/17/18 01:22 Folate > 20.0 ng/mL 06/17/18 01:22 Urine Color Yellow (YELLOW) 06/22/18 04:19 Urine Clarity Hazy (Clear) 06/22/18 04:19 Urine pH 6.0 (5.0-8.0) 06/22/18 04:19 Ur Specific [place] 1.010 (1.003-1.030) 06/22/18 04:19 Urine Protein 1+ mg/dL (NEGATIVE) H 06/22/18 04:19 Urine Glucose (UA) Normal mg/dL (Normal) 06/22/18 04:19 Urine Ketones Negative mg/dL (NEGATIVE) 06/22/18 04:19 Urine Blood 1+ (NEGATIVE) H 06/22/18 04:19 Urine Nitrate Negative (NEGATIVE) 06/22/18 04:19 Urine Bilirubin Negative (NEGATIVE) 06/22/18 04:19 Urine Urobilinogen Normal mg/dL (0.2-1.0) 06/22/18 04:19 Ur Leukocyte Esterase 3+ Jonn/uL (Negative) H 06/22/18 04:19 Urine WBC (Auto) 104 /hpf (0-5) H 06/22/18 04:19 Urine RBC (Auto) 7 /hpf (0-3) H 06/22/18 04:19 Urine WBC Clumps (Auto) Many /hpf (NONE) H 06/16/18 16:33 Ur Squamous Epith Cells 1 /hpf (0-5) 06/22/18 04:19 Urine Bacteria Rare (<OCC) 06/22/18 04:19 Stool Occult Blood Negative (NEGATIVE) 06/16/18 20:38 Discharge Exam - Head Exam Head Exam: ATRAUMATIC, NORMOCEPHALIC Discharge Plan - Follow Up Plan Condition: STABLE Disposition: HOME/ ROUTINE Instructions: Urinary Tract Infection in Women (DC) Referrals: Eun Aburto MD [Staff Provider] - Albert Lew MD [Staff Provider] -
[2018-06-25 23:54] VITALS: BP 115/72; PULSE 82; RESP 18; TEMP 98.1; O2SAT 95
== END 2018-06-25 23:48 | DRG 690 ==
LOC: C.ER 14:44 → C.9E 19:38 → C.5S 20:00
PROVIDERS: ADMIT Hospitalist; ATTEND Hospitalist
DX: N30.91 Cystitis, unspecified with hematuria (principal); N13.6 Pyonephrosis; D64.9 Anemia, unspecified; I10 Essential (primary) hypertension; M19.90 Unspecified osteoarthritis, unspecified site; N81.89 Other female genital prolapse; Z66 Do not resuscitate; E11.42 Type 2 diabetes mellitus with diabetic polyneuropathy; B96.20 Unspecified Escherichia coli [E. coli] as the cause of diseases classified elsewhere